=== PATIENT | female | born 1950 | race Caucasian/White ===

== ENCOUNTER 2018-01-10 15:45 | Emergency (ER) | payer MEDICARE ==
--- NOTE | 2018-01-10 16:20 | ERPHSYRPT ---
- History of Present Illness Time Seen by Provider: 01/10/18 16:15 Source: patient, family Exam Limitations: no limitations Patient Subjective Stated Complaint: pt sent from [facility] for swelling to left lower leg, started yesterday.no pain ,no injury. Triage Nursing Assessment: pt alert,sin w/d/p.resp easy, has fracture left humerus fx from a fall last week. left leg swollen, cool to touch with weak pedal pulse Physician History: The patient is a 67-year-old female with her complaining of a sudden onset of left lower leg swelling that began this morning. She denies shortness of breath. The leg is not tender nor is it red. She felt 2 weeks ago breaking the proximal left humerus. She has not been as active since the fracture of her humerus. Her states that he has been caring for her and she has not been very active at all. Her past medical history is significant for hypertension, scoliosis, and left humeral head fracture. Timing/Duration: today, gradual onset, worse Severity: moderate Modifying Factors: Improves With: nothing Associated Symptoms: denies symptoms, No nausea, No vomiting, No abdominal pain , No shortness of breath, No diaphoresis, No chest pain, No weakness Allergies/Adverse Reactions: carbamazepine [From Tegretol] Allergy (Verified 01/10/18 16:02) diazepam [From Valium] Allergy (Verified 01/10/18 16:02) hydrocodone Adverse Reaction (Verified 01/10/18 16:02) Home Medications: Amitriptyline HCl 200 mg PO QHS 06/16/15 [History] Losartan Potassium [Cozaar] 50 mg PO DAILY 06/16/15 [History] Cholecalciferol (Vitamin D3) [Vitamin D3] 1,000 unit PO DAILY 01/26/17 [History] Hx Tetanus, Diphtheria Vaccination/Date Given: Yes Hx Influenza Vaccination/Date Given: No Hx Pneumococcal Vaccination/Date Given: No Immunizations Up to Date: Yes - Review of Systems Constitutional: No Fever, No Chills Eyes: No Symptoms Ears, Nose, & Throat: No Symptoms Respiratory: No Cough, No Dyspnea Cardiac: Edema (left leg), No Chest Pain, No Syncope Abdominal/Gastrointestinal: No Abdominal Pain, No Nausea, No Vomiting, No Diarrhea Genitourinary Symptoms: No Dysuria Musculoskeletal: No Back Pain, No Neck Pain Skin: No Rash Neurological: No Dizziness, No Focal Weakness, No Sensory Changes Psychological: No Symptoms Endocrine: No Symptoms Hematologic/Lymphatic: No Symptoms Immunological/Allergic: No Symptoms All Other Systems: Reviewed and Negative - Past Medical History Pertinent Past Medical History: Yes Neurological History: No Pertinent History ENT History: No Pertinent History Cardiac History: Hypertension Respiratory History: No Pertinent History Endocrine Medical History: No Pertinent History Musculoskeletal History: Osteoarthritis, Osteoporosis GI Medical History: No Pertinent History History: No Pertinent History Psycho-Social History: No Pertinent History Female Reproductive Disorders: No Pertinent History Other Medical History: fx left arm - Past Surgical History Past Surgical History: Yes Neuro Surgical History: No Pertinent History Cardiac: No Pertinent History Respiratory: No Pertinent History Gastrointestinal: No Pertinent History Genitourinary: No Pertinent History Musculoskeletal: No Pertinent History Female Surgical History: Section, Hysterectomy Other Surgical History: Jaw surgery - Social History Smoking Status: Former smoker Exposure to second hand smoke: No Drug Use: none Patient Lives Alone: No - Female History Hx Last Menstrual Period: post - Nursing Vital Signs Nursing Vital Signs: Initial Vital Signs Temperature 97.2 F 01/10/18 16:05 Pulse Rate 120 H 01/10/18 16:05 Respiratory Rate 16 01/10/18 16:05 Blood Pressure 104/65 01/10/18 16:05 O2 Sat by Pulse Oximetry 98 01/10/18 16:05 - Physical Exam General Appearance: no apparent distress, alert Eye Exam: PERRL/EOMI, eyes nml inspection Ears, Nose, Throat Exam: normal ENT inspection, TMs normal, pharynx normal, moist mucous membranes Neck Exam: normal inspection, non-tender, supple, full range of motion Respiratory Exam: normal breath sounds, lungs clear, No respiratory distress Cardiovascular Exam: regular rate/rhythm, normal heart sounds, normal peripheral pulses Gastrointestinal/Abdomen Exam: soft, normal bowel sounds, No tenderness, No mass Pelvic Exam: not done Rectal Exam: not done Back Exam: normal inspection, normal range of motion, No CVA tenderness, No vertebral tenderness Extremity Exam: swelling (left calf is significantly larger than right. right calf measures 14 in and left 15.25 in.) Neurologic Exam: alert, oriented x 3, cooperative, normal mood/affect, nml cerebellar function, nml station & gait, sensation nml, No motor deficits Skin Exam: normal color, warm, dry, No rash Lymphatic Exam: No adenopathy SpO2 Interpretation: normal SpO2: 98 Oxygen Delivery: Room Air - Radiology Exams Chest X-ray Interpretation: Reviewed by me, Teleradiologist Report (per Dr French), Other (bibasilar etelectasis, tiny left effusion) - Radiology Ultrasound Exam Left Venous Lower Extremity Ultrasound: tele radiology report (per U/S tech ), Other (DVT in comomon femoral vein from iliac to foot.) Ordered Tests: Active Orders 24 hr Category Date Time Status Clinical Informatics Spec STAT Care 01/10/18 16:15 Active EKG-ER Only STAT Care 01/10/18 16:15 Active IV Insertion STAT Care 01/10/18 16:15 Active CHEST 1 VIEW (PORTABLE) Stat Exams 01/10/18 16:22 Completed VENOUS UNILAT/LIMITED EXTREMIT [US] Stat Exams 01/10/18 17:05 Taken CBC W DIFF Stat Lab 01/10/18 16:45 Completed CMP Stat Lab 01/10/18 16:45 Completed D-DIMER QUANTITATION Stat Lab 01/10/18 16:15 Ordered Lactic Acid Stat Lab 01/10/18 16:38 Completed Manual Differential NC Stat Lab 01/10/18 16:45 Completed NT PRO BNP Stat Lab 01/10/18 16:45 Completed TROPONIN Q3H Lab 01/10/18 16:45 Completed TROPONIN Q3H Lab 01/10/18 19:15 Ordered TROPONIN Q3H Lab 01/10/18 22:15 Ordered TROPONIN Q3H Lab 01/11/18 01:15 Ordered TROPONIN Q3H Lab 01/11/18 04:15 Ordered Lab/Rad Data: Laboratory Result Diagrams 01/10/18 16:45 01/10/18 16:45 Laboratory Results 01/10/18 01/10/18 01/10/18 Range/Units 16:45 16:45 16:45 WBC 10.9 H (4.0-10.5) K/mm3 RBC 4.05 L (4.1-5.4) M/mm3 Hgb 13.1 (12.0-16.0) gm/dl Hct 39.2 (35-47) % MCV 96.8 (78-100) fl MCH 32.3 H (26-32) pg MCHC 33.4 (32-36) g/dl RDW 13.7 (11.5-14.0) % Plt Count 627 H (150-450) K/mm3 MPV 8.8 (6-9.5) fl Absolute Granulocytes 7.57 H (1.4-6.9) Sodium 136 L (137-145) mmol/L Potassium 4.0 (3.5-5.1) mmol/L Chloride 100 (98-107) mmol/L Carbon Dioxide 23 (22-30) mmol/L Anion Gap 17.6 H (5-15) MEQ/L BUN 43 H (7-17) mg/dL Creatinine 0.80 (0.52-1.04) mg/dL Estimated GFR > 60.0 ML/MIN Glucose 104 (74-106) mg/dL Lactic Acid (0.4-2.0) Calcium 9.6 (8.4-10.2) mg/dL Total Bilirubin 0.60 (0.2-1.3) mg/dL AST 41 H (14-36) U/L ALT 33 (0-35) U/L Alkaline Phosphatase 124 (38-126) U/L Troponin I < 0.012 (0.000-0.034) ng/mL NT-Pro-B Natriuret Pep 69.0 (0-900) pg/mL Serum Total Protein 7.7 (6.3-8.2) g/dL Albumin 4.0 (3.5-5.0) g/dL 01/10/18 Range/Units 16:38 WBC (4.0-10.5) K/mm3 RBC (4.1-5.4) M/mm3 Hgb (12.0-16.0) gm/dl Hct (35-47) % MCV (78-100) fl MCH (26-32) pg MCHC (32-36) g/dl RDW (11.5-14.0) % Plt Count (150-450) K/mm3 MPV (6-9.5) fl Absolute Granulocytes (1.4-6.9) Sodium (137-145) mmol/L Potassium (3.5-5.1) mmol/L Chloride (98-107) mmol/L Carbon Dioxide (22-30) mmol/L Anion Gap (5-15) MEQ/L BUN (7-17) mg/dL Creatinine (0.52-1.04) mg/dL Estimated GFR ML/MIN Glucose (74-106) mg/dL Lactic Acid 1.5 (0.4-2.0) Calcium (8.4-10.2) mg/dL Total Bilirubin (0.2-1.3) mg/dL AST (14-36) U/L ALT (0-35) U/L Alkaline Phosphatase (38-126) U/L Troponin I (0.000-0.034) ng/mL NT-Pro-B Natriuret Pep (0-900) pg/mL Serum Total Protein (6.3-8.2) g/dL Albumin (3.5-5.0) g/dL - Progress Progress: unchanged Discussed with : Edgar Counseled pt/family regarding: lab results, diagnosis, need for follow-up, rad results - Departure Time of Disposition: 17:34 Departure Disposition: Home Clinical Impression: DVT (deep venous thrombosis) Condition: Stable Critical Care Time: No Referrals: YOUSUF ZHANG MD [Primary Care Provider] - Additional Instructions: You have a DVT in your left leg that is in your common femoral vein. You were given Eliquis 10 mg orally in the ER. Take Eliquis 10 mg twice a day. Follow- up with Dr. Zhang later this week. If you become short of breath or your condition changes significantly, please return immediately to the ER. Prescriptions: Apixaban [Eliquis] 10 mg PO BID #14 tablet
--- NOTE | 2018-01-10 16:45 | XRAY ---
Indication: Edema. Known left humeral fracture. Comparison: None Portable chest underinflated with bibasilar atelectasis, tiny left effusion, and right apical calcified granuloma. Remaining lungs clear. Heart is not enlarged. Bony thorax demonstrates mild osteopenia, mild degenerative changes, levoscoliosis, and mildly displaced/comminuted left humeral neck fracture. Impression: 1. Underinflated chest with bibasilar atelectasis and tiny left effusion. 2. Left humeral neck fracture.
[2018-01-10 16:50] LABS: Granulocyte Absolute (ANC) 7.57 (1.4-6.9); Hematocrit 39.2 % (35-47); Hemoglobin 13.1 gm/dl (12.0-16.0); Mean Cell Volume 96.8 fl (78-100); Mean Corpuscular Hemoglobin 32.3 pg (26-32); Mean Corpuscular Hgb Concent. 33.4 g/dl (32-36); Mean Platelet Volume 8.8 fl (6-9.5); Platelet Count 627 K/mm3 (150-450); Red Blood Count 4.05 M/mm3 (4.1-5.4); Red Cell Distribution Width 13.7 % (11.5-14.0); White Blood Count 10.9 K/mm3 (4.0-10.5)
[2018-01-10 17:18] LABS: ALKALINE PHOSPHATASE 124 U/L (38-126); ANION GAP 17.6 MEQ/L (5-15); BLOOD UREA NITROGEN 43 mg/dL (7-17); CHLORIDE 100 mmol/L (98-107); Calcium 9.6 mg/dL (8.4-10.2); Carbon Dioxide 23 mmol/L (22-30); Glucose 104 mg/dL (74-106); SGOT/AST 41 U/L (14-36); SGPT/ALT 33 U/L (0-35); SODIUM 136 mmol/L (137-145); Total Protein 7.7 g/dL (6.3-8.2)
[2018-01-10] MEDS ORDERED: ELIQUIS 2.5 MG TABLET ONE (17:37)
[2018-01-10 17:49] LABS: BAND 1 % (0.0-2.0); Eosinophil 4 % (0.00-3.0); Lymphocytes 19 % (24-44); Monocyte 7 % (0.0-12.0); Neutrophils 69 % (36.0-66.0); Total Cells Counted 100
[2018-01-10 17:50] LABS: ANISOCYTOSIS 1+; Platelet Estimate INCREASED (NORMAL)
[2018-01-10 18:23] VITALS: BP 120/78; PULSE 70; O2SAT 99
--- NOTE | 2018-01-10 18:26 | XRAY ---
Indication: Left leg swelling. 2-dimensional sonogram and color Doppler imaging of the major venous vessels of the left leg was performed. Comparison: None There is occluding thrombus in the common femoral, superficial femoral, and deep femoral veins. No thrombus in the popliteal vein but appears not compressible. No thrombus in the mid to distal posterior tibial and greater saphenous veins with normal compressibility. Impression: Left leg occlusive DVT as detailed. Comment: Preliminary report was given.
[2018-01-11] MEDS ORDERED: ELIQUIS 2.5 MG TABLET PO SCH (10:00)
== END 2018-01-10 18:23 | disposition home or self-care (01) ==
LOC: ED 15:45
DX: I82.412 Acute embolism and thrombosis of left femoral vein (principal); I10 Essential (primary) hypertension; Z79.899 Other long term (current) drug therapy
CPT/HCPCS: 36000; 36415; 71045; 80053; 83605; 83880; 84484; 85025; 93005; 93041; 93971; 99284; A9270-GY

== ENCOUNTER 2018-01-21 15:33 | Emergency (ER) | payer MEDICARE ==
--- NOTE | 2018-01-21 15:46 | ERPHSYRPT ---
- History of Present Illness Time Seen by Provider: 01/21/18 15:40 Source: patient Exam Limitations: no limitations Patient Subjective Stated Complaint: pt here for swelling to left leg, worse today, has large dvt in left leg Triage Nursing Assessment: pt arrived per [facility], resp easy, skin w/d/p. swelling to lower left leg, has strong ppp Physician History: pt here for swelling to left leg, worse today, has large dvt in left leg Patient is already on xarelto Timing/Duration: today Severity: mild Associated Symptoms: denies symptoms Allergies/Adverse Reactions: carbamazepine [From Tegretol] Allergy (Verified 01/21/18 15:39) diazepam [From Valium] Allergy (Verified 01/21/18 15:39) hydrocodone Adverse Reaction (Verified 01/21/18 15:39) Home Medications: Amitriptyline HCl 200 mg PO QHS 06/16/15 [History] Losartan Potassium [Cozaar] 50 mg PO DAILY 06/16/15 [History] Cholecalciferol (Vitamin D3) [Vitamin D3] 1,000 unit PO DAILY 01/26/17 [History] Hx Tetanus, Diphtheria Vaccination/Date Given: Yes Hx Influenza Vaccination/Date Given: No Hx Pneumococcal Vaccination/Date Given: No Immunizations Up to Date: Yes - Review of Systems Constitutional: No Symptoms Eyes: No Symptoms Ears, Nose, & Throat: No Symptoms Respiratory: No Symptoms Cardiac: No Symptoms Abdominal/Gastrointestinal: No Symptoms Musculoskeletal: No Symptoms, Other (leg swelling) Neurological: No Symptoms - Past Medical History Pertinent Past Medical History: Yes Neurological History: No Pertinent History ENT History: No Pertinent History Cardiac History: Hypertension Respiratory History: No Pertinent History Endocrine Medical History: No Pertinent History Musculoskeletal History: Osteoarthritis, Osteoporosis GI Medical History: No Pertinent History History: No Pertinent History Psycho-Social History: No Pertinent History Female Reproductive Disorders: No Pertinent History Other Medical History: fx left arm, dvt left leg 2017 - Past Surgical History Past Surgical History: Yes Neuro Surgical History: No Pertinent History Cardiac: No Pertinent History Respiratory: No Pertinent History Gastrointestinal: No Pertinent History Genitourinary: No Pertinent History Musculoskeletal: No Pertinent History Female Surgical History: Section, Hysterectomy Other Surgical History: Jaw surgery - Social History Smoking Status: Former smoker Exposure to second hand smoke: No Drug Use: none Patient Lives Alone: No - Female History Hx Last Menstrual Period: post Hx Now: No - Nursing Vital Signs Nursing Vital Signs: Initial Vital Signs Temperature 98.0 F 01/21/18 15:34 Pulse Rate 124 H 01/21/18 15:34 Respiratory Rate 18 01/21/18 15:34 Blood Pressure 117/88 01/21/18 15:34 O2 Sat by Pulse Oximetry 96 01/21/18 15:34 Pain Scale Pain Intensity 0 - Physical Exam General Appearance: no apparent distress Eye Exam: PERRL/EOMI Ears, Nose, Throat Exam: normal ENT inspection Neck Exam: normal inspection Respiratory Exam: normal breath sounds Cardiovascular Exam: regular rate/rhythm Gastrointestinal/Abdomen Exam: soft Extremity Exam: cheri's sign (negative) SpO2: 96 Oxygen Delivery: Room Air - Course Nursing assessment & vital signs reviewed: Yes - Progress Progress: improved Counseled pt/family regarding: diagnosis, need for follow-up - Departure Time of Disposition: 15:44 Departure Disposition: Home Clinical Impression: DVT (deep venous thrombosis) Qualifiers: DVT location: lower extremity Affected thrombotic vein of extremity: popliteal Chronicity: chronic Laterality: left Qualified Code(s): I82.532 - Chronic embolism and thrombosis of left popliteal vein Condition: Stable Critical Care Time: No Referrals: YOUSUF ZHANG MD [Primary Care Provider] - Additional Instructions: You should stay on, your medication Xarelto as prescribed. Followup with your primary care physician in next one to 2 days.
[2018-01-21 16:02] VITALS: BP 98/53; PULSE 78; O2SAT 98
== END 2018-01-21 16:03 | disposition home or self-care (01) ==
LOC: ED 15:33
DX: I82.532 Chronic embolism and thrombosis of left popliteal vein (principal); Z79.01 Long term (current) use of anticoagulants; Z79.899 Other long term (current) drug therapy
CPT/HCPCS: 99283

== ENCOUNTER 2018-05-09 05:57 | Day surgery (SDC) | payer MEDICARE ==
[2018-05-09] MEDS ORDERED: DIPRIVAN 200 MG/20 ML IV ONE (05:58)
[2018-05-09] MEDS ORDERED: Lactated Ringers 1,000 ML IV SCH (06:30)
--- NOTE | 2018-05-09 07:56 | OP ---
SURGERY DATE/TIME: 05/09/2018 0711 PREOPERATIVE DIAGNOSIS: Positive fecal occult blood testing. POSTOPERATIVE DIAGNOSIS: Sigmoid colon polyp x1. PROCEDURE: Colonoscopy. SURGEON: Mark Hernández M.D. ANESTHESIA: MAC by Fantasma Kirk CRNA. ESTIMATED BLOOD LOSS: Minimal. SPECIMENS: Hot forceps polypectomy from sigmoid colon polyp. DESCRIPTION OF PROCEDURE: After informed written consent was obtained, the patient was taken to the endoscopy suite. She underwent monitored anesthesia and digital rectal exam showed normal sphincter tone and no internal lesions. The scope was inserted into the rectum and sequentially the entire colonic mucosa was traversed. The level of cecum was reached and verified with direct visualization of ileocecal valve. Upon withdrawal careful mucosal inspection revealed no gross abnormalities. There was a small sessile polyp in the sigmoid colon which was removed in its entirety with hot forceps and sent for pathology testing. Prior to withdrawal retroflexion was performed and was within normal limits. The scope was removed and the patient was transferred to the recovery room in excellent condition. I have advised that she hold her Xarelto for three days and resume after that period. She will follow up in one week for pathology results.
[2018-05-09 08:09] VITALS: O2SAT 97
[2018-05-09 08:47] VITALS: BP 137/88; PULSE 98
[2018-05-09] MEDS ORDERED: Lactated Ringers 1,000 ML IV ONE (16:08)
== END 2018-05-09 09:03 | disposition home or self-care (01) ==
LOC: SDC 05:57
PROVIDERS: ATTEND Family Medicine
DX: D12.5 Benign neoplasm of sigmoid colon (principal); R19.5 Other fecal abnormalities; I10 Essential (primary) hypertension; Z79.01 Long term (current) use of anticoagulants
CPT/HCPCS: 88305; J2704

== ENCOUNTER 2019-04-17 15:15 | Day surgery (SDC) | payer MEDICARE ==
[2019-04-17] MEDS ORDERED: Xylocaine-Mpf 2% 5 Ml Vial IJ ONE (15:16)
[2019-04-17] MEDS ORDERED: Depo-Medrol 40 MG/ML IM ONE (15:16)
[2019-04-17] MEDS ORDERED: DIPRIVAN 200 MG/20 ML IV ONE (15:34)
[2019-04-17] MEDS ORDERED: Ketamine HCl 50 MG/ML ONE (15:34)
[2019-04-17] MEDS ORDERED: Lactated Ringers 1,000 ML IV ONE (15:58)
--- NOTE | 2019-04-17 17:03 | XRAY ---
Indication: Bilateral L3-S1 MBB. Intraoperative fluoroscopy was provided for 18 seconds. Single digital spot images submitted for interpretation demonstrates posterior needle tips projecting over the expected course of the left and right L3-S1 nerve roots. Correlate with intraoperative findings/report.
--- NOTE | 2019-04-17 17:08 | XRAY ---
18 seconds fluoroscopy time in surgery for bilateral L3-S1 MBB.
== END 2019-04-17 16:27 | disposition home or self-care (01) ==
LOC: SDC-PAIN 15:15
PROVIDERS: ATTEND Psychiatry & Neurology Pain Medicine
DX: M47.816 Spondylosis without myelopathy or radiculopathy, lumbar region (principal); I10 Essential (primary) hypertension; M79.7 Fibromyalgia; M81.0 Age-related osteoporosis without current pathological fracture; M41.9 Scoliosis, unspecified; F41.8 Other specified anxiety disorders; Z79.899 Other long term (current) drug therapy
CPT/HCPCS: 64493; 64494; 64495; 72020; 77002; J1030; J2704

== ENCOUNTER 2020-01-15 09:49 | Day surgery (SDC) | payer MEDICARE ==
[~2020-01-15 09:49] MED LIST: DIPRIVAN 200 MG/20 ML IV ONE; Ketamine HCl 50 MG/ML ONE
[2020-01-15] MEDS ORDERED: BUPIVACAINE 0.5% VIAL IJ ONE (09:50)
[2020-01-15] MEDS ORDERED: Depo-Medrol 40 MG/ML IM ONE (09:50)
--- NOTE | 2020-01-15 13:39 | XRAY ---
Indication: Bilateral L3-S1 MBB. Intraoperative fluoroscopy provided for 25 seconds. Single digital spot image submitted for interpretation demonstrates posterior needle tips projecting over the expected left and right L3-S1 nerve roots. Correlate with intraoperative findings/report.
--- NOTE | 2020-01-15 13:41 | XRAY ---
25 seconds fluoroscopy time in surgery for bilateral L3-S1 MBB.
[2020-01-15] MEDS ORDERED: Lactated Ringers 1,000 ML IV ONE (13:45)
== END 2020-01-15 12:51 | disposition home or self-care (01) ==
LOC: SDC-PAIN 09:49
PROVIDERS: ATTEND Psychiatry & Neurology Pain Medicine
DX: M17.0 Bilateral primary osteoarthritis of knee (principal); I10 Essential (primary) hypertension; M79.7 Fibromyalgia; G54.0 Brachial plexus disorders; Z79.899 Other long term (current) drug therapy; Z86.718 Personal history of other venous thrombosis and embolism
CPT/HCPCS: 72020; 77002; J1030; J2704

== ENCOUNTER 2020-07-15 08:30 | Day surgery (SDC) | payer MEDICARE ==
[2020-07-15] MEDS ORDERED: BUPIVACAINE 0.5% VIAL IJ ONE (08:31)
[2020-07-15] MEDS ORDERED: Depo-Medrol 40 MG/ML IM ONE (08:31)
[2020-07-15] MEDS ORDERED: Xylocaine 1% Vial 30 ML PF IJ ONE (08:31)
[2020-07-15] MEDS ORDERED: DIPRIVAN 200 MG/20 ML IV ONE (09:28)
[2020-07-15] MEDS ORDERED: Ketamine HCl 50 MG/ML ONE (09:28)
--- NOTE | 2020-07-15 10:58 | XRAY ---
Indication: Right L3-S1 RFA. Intraoperative fluoroscopy provided for 56 seconds. 3 digital spot images submitted for interpretation demonstrates posterior needle tips projecting over the expected right L3-S1 nerve roots. Correlate with intraoperative findings/report.
--- NOTE | 2020-07-15 11:36 | XRAY ---
56 seconds fluoroscopy time in surgery for right L3-S1 RFA.
[2020-07-15] MEDS ORDERED: Lactated Ringers 1,000 ML IV ONE ×2 (13:49)
== END 2020-07-15 10:11 | disposition home or self-care (01) ==
LOC: SDC-PAIN 08:30
PROVIDERS: ATTEND Psychiatry & Neurology Pain Medicine
DX: M47.816 Spondylosis without myelopathy or radiculopathy, lumbar region (principal); I10 Essential (primary) hypertension; M79.7 Fibromyalgia; Z79.899 Other long term (current) drug therapy
CPT/HCPCS: 64635; 64636; 72100; 77002; 99100; J1030; J2001; J2704

== ENCOUNTER 2020-08-12 12:49 | Day surgery (SDC) | payer MEDICARE ==
[2020-08-12] MEDS ORDERED: BUPIVACAINE 0.5% VIAL IJ ONE (12:50)
[2020-08-12] MEDS ORDERED: Xylocaine 1% Vial 30 ML PF IJ ONE (12:50)
[2020-08-12] MEDS ORDERED: Depo-Medrol 40 MG/ML IM ONE (12:50)
[2020-08-12] MEDS ORDERED: DIPRIVAN 200 MG/20 ML IV ONE (14:28)
[2020-08-12] MEDS ORDERED: Lactated Ringers 1,000 ML IV ONE (16:05)
--- NOTE | 2020-08-12 16:21 | XRAY ---
Indication: Left L3-S1 RFA. Intraoperative fluoroscopy provided for 46 seconds. 2 digital spot images submitted for interpretation demonstrates posterior needle tips projecting over the expected left L3-S1 nerve roots. Correlate with intraoperative findings/report.
--- NOTE | 2020-08-12 16:34 | XRAY ---
46 seconds fluoroscopy time in surgery for left L3-S1 RFA.
== END 2020-08-12 15:11 | disposition home or self-care (01) ==
LOC: SDC-PAIN 12:49
PROVIDERS: ATTEND Psychiatry & Neurology Pain Medicine
DX: M47.816 Spondylosis without myelopathy or radiculopathy, lumbar region (principal); I10 Essential (primary) hypertension; M79.7 Fibromyalgia; M81.0 Age-related osteoporosis without current pathological fracture; M41.9 Scoliosis, unspecified; M19.90 Unspecified osteoarthritis, unspecified site; Z79.899 Other long term (current) drug therapy
CPT/HCPCS: 72100; 77002; J1030; J2001; J2704

== ENCOUNTER 2020-11-01 23:26 | Observation (INO) | payer MEDICARE ==
[2020-11-01] MEDS ORDERED: BABY ASPIRIN 81 MG CHEW PO ONE (23:29)
[2020-11-01] MEDS ORDERED: MORPHINE SULFATE 2 MG INJ IV ONE (23:38)
[2020-11-01] MEDS ORDERED: Zofran 4 MG/2 ML VIAL IV ONE (23:38)
[2020-11-01] MEDS ORDERED: DUONEB 0.5-3 MG/3 ml Neb IH ONE ×2 (23:39→23:50)
--- NOTE | 2020-11-01 23:42 | ERPHSYRPT ---
- History of Present Illness Time Seen by Provider: 11/01/20 23:29 Historian: patient Exam Limitations: no limitations Physician History: 69 years old female with a history of hypertension presented in the ER with sudden onset shortness of breath almost 2 hours prior to arrival while she was resting and almost half an hour prior to arrival started to have substernal/ce ntral chest pain moderate intensity dull aching to sharp nonradiating without any significant aggravating or relieving factors. Denies any history of CAD in the past. No fever chills or cough reported. Timing/Duration: hour(s), constant, sudden, worse Activities at Onset: rest Quality: dullness Location: central Chest Pain Radiation: no radiation Severity of Pain-Max: moderate Severity of Pain-Current: moderate Modifying Factors: Improves With: nothing Associated Symptoms: palpitations, shortness of breath, No cough, No hurts to breathe, No chills, No rash, No dizziness, No back pain Prior Chest Pain/Cardiac Workup: no prior cardiac workup Nitro Today/Relief: no nitro taken today Aspirin Treatment Today: no aspirin today Allergies/Adverse Reactions: carbamazepine [From Tegretol] Allergy (Verified 11/01/20 23:27) diazepam [From Valium] Allergy (Verified 11/01/20 23:27) hydrocodone Adverse Reaction (Verified 11/01/20 23:27) Home Medications: Amitriptyline HCl 200 mg PO QHS 06/16/15 [History] Losartan Potassium [Cozaar] 50 mg PO DAILY 06/16/15 [History] Cholecalciferol (Vitamin D3) [Vitamin D3] 2,000 unit PO DAILY 01/26/17 [History] hydroCHLOROthiazide [Hydrochlorothiazide] 12.5 mg PO DAILY 11/01/20 [History] Hx Tetanus, Diphtheria Vaccination/Date Given: Yes Hx Influenza Vaccination/Date Given: No Hx Pneumococcal Vaccination/Date Given: No - Review of Systems Constitutional: No Symptoms Eyes: No Symptoms Ears, Nose, & Throat: No Symptoms Respiratory: Dyspnea Cardiac: Chest Pain, Palpitations Abdominal/Gastrointestinal: No Symptoms Genitourinary Symptoms: No Symptoms Musculoskeletal: No Symptoms Skin: No Symptoms Neurological: No Symptoms Psychological: Anxiety Endocrine: No Symptoms Hematologic/Lymphatic: No Symptoms Immunological/Allergic: No Symptoms - Past Medical History Pertinent Past Medical History: Yes Neurological History: No Pertinent History ENT History: No Pertinent History Cardiac History: Deep Vein Thrombosis, Hypertension Respiratory History: No Pertinent History Endocrine Medical History: No Pertinent History Musculoskeletal History: Degenerative Disk Disease, Other GI Medical History: No Pertinent History History: No Pertinent History Psycho-Social History: Depression Female Reproductive Disorders: No Pertinent History Other Medical History: Scoliosis. DVT LLE Jan 2018 after shoulder fx. - Past Surgical History Past Surgical History: Yes Neuro Surgical History: No Pertinent History Cardiac: No Pertinent History Respiratory: No Pertinent History Gastrointestinal: No Pertinent History Genitourinary: No Pertinent History Musculoskeletal: No Pertinent History, Orthopedic Surgery Female Surgical History: Section, Hysterectomy Other Surgical History: bilateral jaw reconstruction 1983, shoulder left fx Jan 2018 - Social History Smoking Status: Former smoker Exposure to second hand smoke: No Drug Use: none Patient Lives Alone: No - Nursing Vital Signs Nursing Vital Signs: Initial Vital Signs Temperature 97.3 F 11/01/20 23:29 Pulse Rate 118 H 11/01/20 23:29 Respiratory Rate 22 11/01/20 23:29 Blood Pressure 114/83 11/01/20 23:29 O2 Sat by Pulse Oximetry 97 11/01/20 23:29 Pain Scale Pain Intensity 4 - Physical Exam General Appearance: no apparent distress, alert, anxiety Eye Exam: PERRL/EOMI Ears, Nose, Throat Exam: normal ENT inspection, pharynx normal Neck Exam: normal inspection, supple, full range of motion Respiratory Exam: normal breath sounds, lungs clear Cardiovascular Exam: normal heart sounds, tachycardia Gastrointestinal/Abdomen Exam: soft, normal bowel sounds, No tenderness Back Exam: normal inspection Neurologic Exam: alert, oriented x 3, cooperative, 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 as tested Skin Exam: normal color SpO2 Interpretation: normal SpO2: 96 O2 Delivery: Room Air - Course EKG Interpreted by Me: RATE ([id number]), Sinus Tach, NORMAL AXIS, NORMAL INTERVALS, Non-specific ST Changes, Other (Nonspecific T wave changes) Ordered Tests: Active Orders 24 hr Category Date Time Status Agile Business Analyst STAT Care 11/01/20 23:30 Active EKG-ER Only STAT Care 11/01/20 23:29 Active IV Insertion STAT Care 11/01/20 23:29 Active CHEST 1 VIEW (PORTABLE) Stat Exams 11/02/20 00:15 Taken CBC W DIFF Stat Lab 11/01/20 23:57 Completed CMP Stat Lab 11/01/20 23:57 Completed D-DIMER QUANTITATIVE Stat Lab 11/02/20 00:00 Completed NT PRO BNP Stat Lab 11/01/20 23:57 Completed TROPONIN Q3H Lab 11/01/20 23:57 Completed TROPONIN Q3H Lab 11/02/20 02:30 Ordered TROPONIN Q3H Lab 11/02/20 05:30 Ordered TROPONIN Q3H Lab 11/02/20 08:30 Ordered TROPONIN Q3H Lab 11/02/20 11:30 Ordered Respiratory Therapy Assessment DAILY RT 11/01/20 23:55 Active Medication Summary Discontinued Medications Generic Name Dose Route Start Last Admin Trade Name Nelson PRN Reason Stop Dose Admin Albuterol/Ipratropium 3 ml 11/01/20 23:39 11/01/20 23:51 Duoneb 0.5-3 Mg/3 Ml Neb IH 11/01/20 23:40 3 ml STAT ONE Administration Albuterol/Ipratropium Confirm 11/01/20 23:50 Duoneb 0.5-3 Mg/3 Ml Neb Administered 11/01/20 23:51 Dose 3 ml IH .STK-MED ONE Aspirin 324 mg 11/01/20 23:29 11/01/20 23:48 Baby Aspirin 81 Mg Chew PO 11/01/20 23:30 324 mg STAT ONE Administration Aspirin Confirm 11/01/20 23:47 Baby Aspirin 81 Mg Chew Administered 11/01/20 23:48 Dose 324 mg .ROUTE .STK-MED ONE Morphine Sulfate 2 mg 11/01/20 23:38 11/01/20 23:50 Morphine Sulfate 2 Mg Inj IV 11/01/20 23:39 2 mg STAT ONE Administration Morphine Sulfate Confirm 11/01/20 23:47 Morphine Sulfate 2 Mg Inj Administered 11/01/20 23:48 Dose 2 mg .ROUTE .STK-MED ONE Ondansetron HCl 4 mg 11/01/20 23:38 11/01/20 23:51 Zofran 4 Mg/2 Ml Vial IV 11/01/20 23:39 4 mg STAT ONE Administration Ondansetron HCl Confirm 11/01/20 23:47 Zofran 4 Mg/2 Ml Vial Administered 11/01/20 23:48 Dose 4 mg .ROUTE .STK-MED ONE Lab/Rad Data: Laboratory Result Diagrams 11/01/20 23:57 11/01/20 23:57 Laboratory Results 11/02/20 11/01/20 11/01/20 Range/Units 00:00 23:57 23:57 WBC (4.0-10.5) K/mm3 RBC (4.1-5.4) M/mm3 Hgb (12.0-16.0) gm/dl Hct (35-47) % MCV (78-100) fl MCH (26-32) pg MCHC (32-36) g/dl RDW (11.5-14.0) % Plt Count (150-450) K/mm3 MPV (7.5-11.0) fl Gran % (36.0-66.0) % Eos # (Auto) (0-0.5) Absolute Lymphs (auto) (1.0-4.6) Absolute Monos (auto) (0.0-1.3) Lymphocytes % (24.0-44.0) % Monocytes % (0.0-12.0) % Eosinophils % (0.00-5.0) % Basophils % (0.0-0.4) % Absolute Granulocytes (1.4-6.9) Basophils # (0-0.4) D-Dimer 1121 H* (215-500) ng/mL Sodium 136 L (137-145) mmol/L Potassium 3.7 (3.5-5.1) mmol/L Chloride 101 (98-107) mmol/L Carbon Dioxide 20 L (22-30) mmol/L Anion Gap 18.4 H (5-15) MEQ/L BUN 23 H (7-17) mg/dL Creatinine 1.16 H (0.52-1.04) mg/dL Estimated GFR 49.1 ML/MIN Glucose 117 H (74-106) mg/dL Calcium 10.2 (8.4-10.2) mg/dL Total Bilirubin 0.40 (0.2-1.3) mg/dL AST 27 (14-36) U/L ALT 13 (0-35) U/L Alkaline Phosphatase 79 (38-126) U/L Troponin I < 0.012 (0.000-0.034) ng/mL NT-Pro-B Natriuret Pep 49.2 (0-900) pg/mL Serum Total Protein 7.5 (6.3-8.2) g/dL Albumin 4.5 (3.5-5.0) g/dL 11/01/20 Range/Units 23:57 WBC 8.6 (4.0-10.5) K/mm3 RBC 4.54 (4.1-5.4) M/mm3 Hgb 14.9 (12.0-16.0) gm/dl Hct 45.1 (35-47) % MCV 99.3 (78-100) fl MCH 32.8 H (26-32) pg MCHC 33.0 (32-36) g/dl RDW 13.5 (11.5-14.0) % Plt Count 450 (150-450) K/mm3 MPV 9.4 (7.5-11.0) fl Gran % 42.4 (36.0-66.0) % Eos # (Auto) 0.27 (0-0.5) Absolute Lymphs (auto) 3.40 (1.0-4.6) Absolute Monos (auto) 1.25 (0.0-1.3) Lymphocytes % 39.6 (24.0-44.0) % Monocytes % 14.6 H (0.0-12.0) % Eosinophils % 3.1 (0.00-5.0) % Basophils % 0.3 (0.0-0.4) % Absolute Granulocytes 3.64 (1.4-6.9) Basophils # 0.03 (0-0.4) D-Dimer (215-500) ng/mL Sodium (137-145) mmol/L Potassium (3.5-5.1) mmol/L Chloride (98-107) mmol/L Carbon Dioxide (22-30) mmol/L Anion Gap (5-15) MEQ/L BUN (7-17) mg/dL Creatinine (0.52-1.04) mg/dL Estimated GFR ML/MIN Glucose (74-106) mg/dL Calcium (8.4-10.2) mg/dL Total Bilirubin (0.2-1.3) mg/dL AST (14-36) U/L ALT (0-35) U/L Alkaline Phosphatase (38-126) U/L Troponin I (0.000-0.034) ng/mL NT-Pro-B Natriuret Pep (0-900) pg/mL Serum Total Protein (6.3-8.2) g/dL Albumin (3.5-5.0) g/dL - Progress Progress: improved Air Movement: good Progress Note: 11/02/20 00:55 69 years old is evaluated for chest shortness of breath which started 2 hours ago and later chest pain almost half an hour prior to arrival. She is given aspirin and morphine for symptomatic relief, on reevaluation feeling better. EKG showed sinus tach with no acute ST elevation. Negative initial troponins. Chest x-ray no acute findings but old changes. Has elevated D-dimer, CTA is ordered currently pending. Patient has multiple risk factors for CAD, does not have any work-up done in the recent past. Discussed with Dr. Vines and patient is being admitted for rule out. Blood Culture(s) Obtained: No Antibiotics given: No Discussed with : Rosa Will see patient in: hospital (observation) Counseled pt/family regarding: lab results, diagnosis, rad results - Departure Departure Disposition: Observation Clinical Impression: Chest pain, rule out acute myocardial infarction Condition: Stable Critical Care Time: No Referrals: YOUSUF ZHANG MD [Primary Care Provider] -
[2020-11-01] MEDS ORDERED: BABY ASPIRIN 81 MG CHEW ONE (23:47)
[2020-11-01] MEDS ORDERED: Zofran 4 MG/2 ML VIAL ONE (23:47)
[2020-11-01] MEDS ORDERED: MORPHINE SULFATE 2 MG INJ ONE (23:47)
[2020-11-02 00:14] LABS: Absolute Neutrophil Ct (ANC) 3.64 (1.4-6.9); BASOPHIL % 0.3 % (0.0-0.4); Basophil (Absolute #) 0.03 (0-0.4); Eosinophil % 3.1 % (0.00-5.0); Eosinophil (Absolute #) 0.27 (0-0.5); Hematocrit 45.1 % (35-47); Hemoglobin 14.9 gm/dl (12.0-16.0); Lymphocytes % 39.6 % (24.0-44.0); Mean Cell Volume 99.3 fl (78-100); Mean Corpuscular Hemoglobin 32.8 pg (26-32); Mean Platelet Volume 9.4 fl (7.5-11.0); Monocyte (Absolute #) 1.25 (0.0-1.3); Monocytes % 14.6 % (0.0-12.0); Neutrophil % 42.4 % (36.0-66.0); Platelet Count 450 K/mm3 (150-450); Red Blood Count 4.54 M/mm3 (4.1-5.4); Red Cell Distribution Width 13.5 % (11.5-14.0); White Blood Count 8.6 K/mm3 (4.0-10.5)
[2020-11-02 00:23] LABS: ALBUMIN 4.5 g/dL (3.5-5.0); ANION GAP 18.4 MEQ/L (5-15); BILIRUBIN,TOTAL 0.4 mg/dL (0.2-1.3); Calcium 10.2 mg/dL (8.4-10.2); Creatinine 1 1.16 mg/dL (0.52-1.04); EST GLOMERULAR FILTRATION RATE 49.1 ML/MIN; NT PRO BNP 49.2 pg/mL (0-900); Potassium 3.7 mmol/L (3.5-5.1); Total Protein 7.5 g/dL (6.3-8.2)
[2020-11-02] MEDS ORDERED: GI COCKTAIL 45 ML (Maalox/Lidocaine) PO ONE (00:53)
[2020-11-02] MEDS ORDERED: Pepcid 20 MG VIAL IV ONE ×2 (00:53→01:15)
[2020-11-02] MEDS ORDERED: MAALOX ES 30 ML UNIT DOSE ONE (01:16)
[2020-11-02] MEDS ORDERED: XYLOCAINE HCl Viscous ONE ×2 (01:16→01:17)
[2020-11-02] MEDS ORDERED: Zofran 4 MG/2 ML VIAL IV PRN (03:29)
[2020-11-02] MEDS ORDERED: TYLENOL 325 MG PO PRN (03:29)
[2020-11-02] MEDS ORDERED: Sodium Chloride 0.9% 1000 ML 1,000 ML IV SCH (03:29)
[2020-11-02] MEDS ORDERED: DUONEB 0.5-3 MG/3 ml Neb IH PRN (03:29)
[2020-11-02] MEDS ORDERED: MORPHINE SULFATE 2 MG INJ IV PRN (03:29)
[2020-11-02 06:33] LABS: ALBUMIN 3.6 g/dL (3.5-5.0); ANION GAP 15.5 MEQ/L (5-15); BILIRUBIN,TOTAL 0.2 mg/dL (0.2-1.3); Calcium 8.6 mg/dL (8.4-10.2); EST GLOMERULAR FILTRATION RATE 58.3 ML/MIN; Potassium 3.5 mmol/L (3.5-5.1); Total Protein 6.3 g/dL (6.3-8.2)
[2020-11-02 08:27] VITALS: BP 109/65; PULSE 96; O2SAT 91
--- NOTE | 2020-11-02 08:51 | XRAY ---
Indication: Short of breath, tachycardia, diaphoresis. Elevated d-dimer. Multiple contiguous axial images obtained through the chest using 100 cc Isovue 370 contrast and PE protocol. Comparison: None There is good opacification of the pulmonary arteries limiting evaluation of the more distal lobar and segmental branches. No pulmonary embolus. Heart is not enlarged. Aorta is normal in course and caliber. Tiny mediastinal calcified nodes calcified nodes. No pathologic mediastinal/hilar lymphadenopathy. Lungs demonstrates scattered subsegmental atelectasis/scarring greatest in both lower lobes. Small posterior right upper lobe calcified granuloma. No suspicious pulmonary mass, infiltrate, or effusion. Bony thorax intact with osteopenia, mild/moderate degenerative changes throughout the spine, and significant dextrorotoscoliosis centered at thoracolumbar junction. Limited upper abdomen unremarkable. Impression: 1. Negative pulmonary embolus. No acute cardiopulmonary abnormalities. 2. Incidental chronic bony findings and old granulomatous disease. Comment: Preliminary interpretation made by [facility]. No critical discrepancy.
--- NOTE | 2020-11-02 08:53 | XRAY ---
Indication: Chest pain. Comparison: None Portable chest underinflated with bibasilar subsegmental atelectasis/scarring and small right apical calcified granuloma. No focal infiltrate, consolidation, or large effusion. Heart is not enlarged. Bony thorax intact with osteopenia, multilevel degenerative spondylosis, significant dextroscoliosis centered at thoracolumbar junction, and old left humeral neck fracture. Impression: Nonacute underinflated chest with chronic features.
--- NOTE | 2020-11-02 09:50 | SSS ---
DISCHARGE DIAGNOSIS: CHEST PAIN. HISTORY OF PRESENT ILLNESS: The patient is a 69 year-old white female who presented to the emergency room with acute onset of shortness of breath, substernal chest pain with moderate intensity, dull and aching, not radiating. The patient denies having any previous history of heart problems. She does not have a technical solutions director. She sees Dr. Hernández who is her primary care physician. PAST MEDICAL/SURGICAL HISTORY: Depression. Deep vein thrombosis in left lower extremity. Shoulder fracture. Deep vein thrombosis. Hypertension. She previously had a section and hysterectomy. Jaw reconstruction. Left shoulder fracture. HOME MEDICATIONS: Currently amitriptyline 200 mg at night, losartan 50 mg daily, vitamin D3 at 2,000 units daily, hydrochlorothiazide 12.5 mg daily. ALLERGIES: TEGRETOL. VALIUM. HYDROCODONE. PHYSICAL EXAMINATION: The patient's vital signs in the emergency room showed temperature 97.3F, pulse 118, respiratory rate 22, blood pressure 114/83. HEENT: Normocephalic, atraumatic. Pupils equal round reactive to light. Extraocular movements intact. Oropharynx is pink and moist. NECK: Supple without lymphadenopathy, thyromegaly or JVD. CHEST: Clear to auscultation. HEART: Regular rate and rhythm without murmurs, rubs or gallops. ABDOMEN: Soft. No palpable masses. EXTREMITIES: Without cyanosis, clubbing or edema. NEUROLOGIC: The patient is alert and oriented x3 with no focal deficits. LAB DATA AND TESTS: Laboratory studies revealed multiple troponins all less than 0.012. Her glucose 101, BUN 23, creatinine 1.0. Sodium slightly low at 133. The rest of electrolytes were normal as were the liver enzymes. The patient had negative COVID test. White blood cell count 8,600, hemoglobin 14.9, PLT count 450,000. D-dimer was somewhat elevated at 1,121. CT scan ruled out for pulmonary embolism but did show severe calcified coronary artery disease otherwise no other acute pathology is noted. The patient's 12 lead EKG revealed normal axis and sinus tachycardia with underlying baseline interference but no specific ST or T wave changes were noted on this EKG tracing. She has been in sinus rhythm since admission. HOSPITAL COURSE: The patient was placed on the medicine souza. She was monitored on telemetry and repeat serial troponins all were negative. The patient reports she has been pain free since admission. She is therefore felt to be ready for discharge home again. We sent in for her a prescription for sublingual nitroglycerin and described to her how to take the medication. She is instructed to check her vital signs and if the chest pain is not relieved with the nitroglycerin she is to return to the hospital. She patient reports she does take Excedrin for low back pain which has aspirin in it and otherwise she is asked to see her primary care physician in the next week or return to the hospital for chest pain not controlled with the nitroglycerin at which time they can discuss what technical solutions director they might like to see for her coronary artery disease.
[2020-11-02] MEDS ORDERED: Cozaar 50 MG PO SCH (10:00)
[2020-11-02] MEDS ORDERED: hydroDIURIL 25 MG PO SCH (10:00)
[2020-11-02] MEDS ORDERED: VITAMIN D PO SCH (10:00)
[2020-11-02] MEDS ORDERED: NON-FORMULARY ITEM (Hydrochlorothiazide [Hydrochlorothiazide] 12.5 MG) PO SCH (10:00)
[2020-11-02] MEDS ORDERED: NON-FORMULARY ITEM (Cholecalciferol (Vitamin D3) [Vitamin D3] 2,000 UNIT) PO SCH (10:00)
[2020-11-02] MEDS ORDERED: Pepcid 20 MG VIAL IV SCH (10:00)
[2020-11-02] MEDS ORDERED: AMITRIPTYLINE HCL 200 MG PO SCH (22:00)
== END 2020-11-02 10:03 | disposition home or self-care (01) ==
LOC: ED 23:26 → MED SURG 11-02 03:25
PROVIDERS: ADMIT Family Medicine; ATTEND Family Medicine
DX: R07.9 Chest pain, unspecified (principal); R06.02 Shortness of breath; I10 Essential (primary) hypertension; Z79.899 Other long term (current) drug therapy; Z20.828 Contact with and (suspected) exposure to other viral communicable diseases; Z86.718 Personal history of other venous thrombosis and embolism; I25.10 Atherosclerotic heart disease of native coronary artery without angina pectoris
CPT/HCPCS: 36000; 36415; 71045; 71260; 80053; 83880; 84484; 85025; 85379; 93005; 93041; 94640; 96374; 96375; 99285; U0003; 93268; J2270; J2405; A9270-GY; G0378

== ENCOUNTER 2021-01-20 11:58 | Day surgery (SDC) | payer MEDICARE ==
[2021-01-20] MEDS ORDERED: Depo-Medrol 40 MG/ML IM ONE (11:59)
[2021-01-20] MEDS ORDERED: BUPIVACAINE 0.5% VIAL IJ ONE (11:59)
[2021-01-20] MEDS ORDERED: DIPRIVAN 200 MG/20 ML IV ONE (14:06)
--- NOTE | 2021-01-20 15:15 | XRAY ---
Indication: Right SI joint injection. Intraoperative fluoroscopy provided for 10 seconds. 2 digital spot images submitted for interpretation demonstrates posterior needle tip projecting over the inferior right SI joint. Correlate with intraoperative findings/report.
--- NOTE | 2021-01-20 15:20 | XRAY ---
Indication: Right greater trochanter bursa injection. Intraoperative fluoroscopy provided for 11 seconds. Single digital spot image obtained from submitted for interpretation demonstrates needle tip just lateral to right greater trochanter. Small amount of contrast injected for needle tip placement. Correlate with intraoperative findings/report.
[2021-01-20] MEDS ORDERED: Lactated Ringers 1,000 ML IV ONE (15:28)
--- NOTE | 2021-01-20 17:03 | XRAY ---
11 seconds fluoroscopy time in surgery for injection of the greater trochanteric bursa of the right hip.
--- NOTE | 2021-01-20 17:12 | XRAY ---
10 seconds fluoroscopy time in surgery for injection of the right SI joint.
== END 2021-01-20 14:35 | disposition home or self-care (01) ==
LOC: SDC-PAIN 11:58
PROVIDERS: ATTEND Psychiatry & Neurology Pain Medicine
DX: M46.1 Sacroiliitis, not elsewhere classified (principal); M70.61 Trochanteric bursitis, right hip; Z79.899 Other long term (current) drug therapy
CPT/HCPCS: 27096; 72020; 73501; 77002; G0260; 99100; J1030; J2704; Q9966

== ENCOUNTER 2021-04-28 08:45 | Day surgery (SDC) | payer MEDICARE ==
[2021-04-28] MEDS ORDERED: BUPIVACAINE 0.5% VIAL IJ ONE (08:46)
[2021-04-28] MEDS ORDERED: Depo-Medrol 40 MG/ML IM ONE (08:46)
[2021-04-28] MEDS ORDERED: Lactated Ringers 1,000 ML IV ONE (10:12)
[2021-04-28] MEDS ORDERED: DIPRIVAN 200 MG/20 ML IV ONE (11:03)
--- NOTE | 2021-04-28 11:36 | XRAY ---
Indication: Right SI joint injection. Intraoperative fluoroscopy provided for 12 seconds. 2 digital spot image submitted for interpretation demonstrates posterior needle tip projecting over the inferior right SI joint. Correlate with intraoperative findings/report.
--- NOTE | 2021-04-28 11:38 | XRAY ---
Indication: Right greater trochanter bursa. Intraoperative fluoroscopy provided for 11 seconds. Single digital spot image obtained prone submitted for interpretation demonstrates needle tip projecting lateral to the right greater trochanter. Small amount of contrast injected for needle tip placement. Correlate with intraoperative findings/report.
--- NOTE | 2021-04-28 13:48 | XRAY ---
12 seconds of fluoroscopy was used in surgery for a right sacroiliac joint injection.
--- NOTE | 2021-04-28 13:48 | XRAY ---
11 seconds of fluoroscopy was used in surgery for a right greater trochanteric bursa injection.
== END 2021-04-28 11:30 | disposition home or self-care (01) ==
LOC: SDC-PAIN 08:45
PROVIDERS: ATTEND Psychiatry & Neurology Pain Medicine
DX: M46.1 Sacroiliitis, not elsewhere classified (principal); M70.61 Trochanteric bursitis, right hip; I10 Essential (primary) hypertension; Z79.899 Other long term (current) drug therapy
CPT/HCPCS: 20610; 27096; 72020; 73501; 77002; G0260; 99100; J1030; J2704; Q9966

== ENCOUNTER 2022-05-05 18:24 | Observation (INO) | payer MEDICARE ==
[2022-05-05] MEDS ORDERED: BABY ASPIRIN 81 MG CHEW PO ONE (18:30)
[2022-05-05] MEDS ORDERED: MORPHINE SULFATE 4 MG INJ IV ONE (18:30)
[2022-05-05] MEDS ORDERED: Zofran 4 MG/2 ML VIAL IV ONE (18:30)
[2022-05-05] MEDS ORDERED: NITRO-BID 2% UD PACKETS TOP ONE (18:30)
[2022-05-05] MEDS ORDERED: BABY ASPIRIN 81 MG CHEW ONE (18:42)
[2022-05-05] MEDS ORDERED: Zofran 4 MG/2 ML VIAL ONE (18:42)
[2022-05-05] MEDS ORDERED: NITRO-BID 2% UD PACKETS ONE (18:42)
[2022-05-05] MEDS ORDERED: MORPHINE SULFATE 4 MG INJ ONE (18:42)
--- NOTE | 2022-05-05 18:54 | ERPHSYRPT ---
- History of Present Illness Time Seen by Provider: 05/05/22 18:30 Historian: patient Exam Limitations: no limitations Patient Subjective Stated Complaint: pt c/o of chest pain and SOB off and on today Triage Nursing Assessment: Pt brought to the ER by her , hypertensive, rates pain as 7/10 in her chest, sunita lower leg edema, scoliosis, pulses normal, skin n/c/d, walked to the room and became very short of breath Physician History: 71 years old female with history of hypertension, hyperlipidemia presented in [facility] ER with chief complaint of substernal chest pain off and on since morning without any significant aggravating or relieving factors. Patient reports pain radiating to the back and the shoulder blade area with associated some shortness of breath which started almost 2 hours ago. No fever chills or cough reported. No history of CAD. Timing/Duration: today, intermittent, worse Quality: dullness Location: substernal Chest Pain Radiation: no radiation Severity of Pain-Max: moderate Severity of Pain-Current: moderate Modifying Factors: Improves With: nothing Associated Symptoms: shortness of breath Prior Chest Pain/Cardiac Workup: no prior chest pain, no prior cardiac workup Nitro Today/Relief: no nitro taken today Aspirin Treatment Today: no aspirin today Allergies/Adverse Reactions: carbamazepine [From Tegretol] Allergy (Verified 05/05/22 18:40) diazepam [From Valium] Allergy (Verified 05/05/22 18:40) hydrocodone Adverse Reaction (Verified 05/05/22 18:40) Home Medications: Amitriptyline HCl 200 mg PO QHS 06/16/15 [History] Cholecalciferol (Vitamin D3) [Vitamin D3] 2,000 unit PO DAILY 01/26/17 [History] hydroCHLOROthiazide [Hydrochlorothiazide] 12.5 mg PO DAILY 11/01/20 [History] Metoprolol Succinate 50 mg [Toprol Xl 50 MG] 50 mg BID 06/01/21 [History] Pravastatin Sodium 20 mg PO DAILY 05/05/22 [History] Hx Tetanus, Diphtheria Vaccination/Date Given: Yes Hx Influenza Vaccination/Date Given: No Hx Pneumococcal Vaccination/Date Given: No Travel Risk - International Travel Have you traveled outside of the country in past 3 weeks: No - Coronavirus Screening Are you exhibiting any of the following symptoms?: No Close contact with a COVID-19 positive Pt in past 14-21 Days: No - Vaccine Status Have you recieved a Covid-19 vaccination: Yes [employer]: Moderna - Vaccination Dates Date of 2cond Vaccination (if applicable): 05/31 - Review of Systems Constitutional: No Symptoms Eyes: No Symptoms Ears, Nose, & Throat: No Symptoms Respiratory: Dyspnea Cardiac: Chest Pain Abdominal/Gastrointestinal: No Symptoms Genitourinary Symptoms: No Symptoms Musculoskeletal: Arthralgias Skin: No Symptoms Neurological: No Symptoms Psychological: No Symptoms Endocrine: No Symptoms Hematologic/Lymphatic: No Symptoms Immunological/Allergic: No Symptoms - Past Medical History Pertinent Past Medical History: Yes Neurological History: Migraines ENT History: Cataracts Cardiac History: Angina, Hypertension Respiratory History: No Pertinent History Endocrine Medical History: No Pertinent History Musculoskeletal History: Osteoporosis GI Medical History: Irritable Bowel History: No Pertinent History Psycho-Social History: Depression Female Reproductive Disorders: Abnormal Uterine Bleeding Other Medical History: PT HAS BEEN TO FOR A CONSULTATION, NOT A CANDIDATE FOR SURGERY DUE TO OSTEOPOROSIS. NO COMPRESSION FRACTURES NOTED. PT SEES DR. PAYNE AND NOTES HER HEART IS FINE AT THIS TIME, SEES HIM EVERY 6 MONTHS. - Past Surgical History Past Surgical History: Yes Neuro Surgical History: No Pertinent History Cardiac: No Pertinent History Respiratory: No Pertinent History Gastrointestinal: No Pertinent History Genitourinary: No Pertinent History Musculoskeletal: No Pertinent History, Orthopedic Surgery Female Surgical History: Section, Hysterectomy Other Surgical History: bilateral jaw reconstruction 1983, shoulder left fx Jan 2018,steriod inj in back - Social History Smoking Status: Former smoker Exposure to second hand smoke: No Drug Use: none Patient Lives Alone: No - Nursing Vital Signs Nursing Vital Signs: Initial Vital Signs Temperature 98.3 F 05/05/22 18:30 Pulse Rate 93 H 05/05/22 18:30 Respiratory Rate 17 05/05/22 18:30 Blood Pressure 168/106 05/05/22 18:30 O2 Sat by Pulse Oximetry 99 05/05/22 18:30 Pain Scale Pain Intensity 7 - Physical Exam General Appearance: no apparent distress, alert Eye Exam: PERRL/EOMI Ears, Nose, Throat Exam: normal ENT inspection Neck Exam: normal inspection, non-tender, supple, full range of motion Respiratory Exam: normal breath sounds, lungs clear Cardiovascular Exam: regular rate/rhythm, normal heart sounds Gastrointestinal/Abdomen Exam: soft, No tenderness Back Exam: normal inspection Extremity Exam: normal inspection, normal range of motion Neurologic Exam: alert, oriented x 3, cooperative Skin Exam: normal color SpO2 Interpretation: normal SpO2: 99 O2 Delivery: Room Air - Course EKG Interpreted by Me: RATE (100), Sinus Rhythm, NORMAL AXIS, prolonged QT inte rval, Non-specific ST Changes Ordered Tests: Active Orders 24 hr Category Date Time 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 Set 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 External STAT Care 05/05/22 18:30 Active EKG-ER Only STAT Care 05/05/22 18:30 Active IV Insertion STAT Care 05/05/22 18:30 Active Oxygen-ED Only Nasal Cannula 2 lpm Care 05/05/22 18:30 Active CHEST 1 VIEW (PORTABLE) Stat Exams 05/05/22 18:30 Taken CHEST WITH CONTRAST [CT] Stat Exams 05/05/22 20:46 Taken CBC W DIFF Stat Lab 05/05/22 18:45 Completed CK-Creatinine Phosphokinase Stat Lab 05/05/22 18:45 Completed CMP Stat Lab 05/05/22 18:45 Completed D-DIMER QUANTITATIVE Stat Lab 05/05/22 19:20 Completed NT PRO BNP Stat Lab 05/05/22 18:45 Completed TROPONIN Q4H Lab 05/05/22 18:45 Completed TROPONIN Q4H Lab 05/05/22 22:30 Ordered TROPONIN Q4H Lab 05/06/22 02:30 Ordered Transfer Order Routine Transfer 05/05/22 Ordered Medication Summary Discontinued Medications Generic Name Dose Route Start Last Admin Trade Name Freq PRN Reason Stop Dose Admin Aspirin 324 mg 05/05/22 18:30 05/05/22 18:45 Aspirin 81 Mg Tab.Chew PO 05/05/22 18:31 324 mg STAT ONE Administration Aspirin Confirm 05/05/22 18:42 Aspirin 81 Mg Tab.Chew Administered 05/05/22 18:43 Dose 324 mg .ROUTE .STK-MED ONE Morphine Sulfate 4 mg 05/05/22 18:30 05/05/22 18:46 Morphine Sulfate 4 Mg/Ml Injection IV 05/05/22 18:31 4 mg STAT ONE Administration Morphine Sulfate Confirm 05/05/22 18:42 Morphine Sulfate 4 Mg/Ml Injection Administered 05/05/22 18:43 Dose 4 mg .ROUTE .STK-MED ONE Nitroglycerin 1 gm 05/05/22 18:30 05/05/22 18:47 Nitroglycerin 1 Gm Packet TOP 05/05/22 18:31 1 gm STAT ONE Administration Nitroglycerin Confirm 05/05/22 18:42 Nitroglycerin 1 Gm Packet Administered 05/05/22 18:43 Dose 1 gm .ROUTE .STK-MED ONE Ondansetron HCl 4 mg 05/05/22 18:30 05/05/22 18:47 Ondansetron Hcl 4 Mg/2 Ml Vial IV 05/05/22 18:31 4 mg STAT ONE Administration Ondansetron HCl Confirm 05/05/22 18:42 Ondansetron Hcl 4 Mg/2 Ml Vial Administered 05/05/22 18:43 Dose 4 mg .ROUTE .STK-MED ONE Lab/Rad Data: Laboratory Result Diagrams 05/05/22 18:45 05/05/22 18:45 Laboratory Results 05/05/22 05/05/22 05/05/22 Range/Units 19:20 18:45 18:45 WBC 6.9 (4.0-10.5) x10^3/uL RBC 4.50 (4.1-5.4) x10^6/uL Hgb 14.6 (12.0-16.0) g/dL Hct 44.3 (35-47) % MCV 98.4 (78-100) fL MCH 32.4 H (26-32) pg MCHC 33.0 (32-36) g/dL RDW 12.6 (11.5-14.0) % Plt Count 398 (150-450) x10^3/uL MPV 9.3 (7.5-11.0) fL Gran % 50.2 (36.0-66.0) % Immature Gran % (Auto) 0.3 (0.00-0.4) % Nucleat RBC Rel Count 0.0 (0.00-0.1) % Eos # (Auto) 0.16 (0-0.5) x10^3/uL Immature Gran # (Auto) 0.02 (0.00-0.03) x10^3u/L Absolute Lymphs (auto) 2.39 (1.0-4.6) x10^3/uL Absolute Monos (auto) 0.79 (0.0-1.3) x10^3/uL Absolute Nucleated RBC 0.00 (0.00-0.01) x10^3u/L Lymphocytes % 34.8 (24.0-44.0) % Monocytes % 11.5 (0.0-12.0) % Eosinophils % 2.3 (0.00-5.0) % Basophils % 0.9 (0.0-0.4) % Absolute Granulocytes 3.44 (1.4-6.9) x10^3/uL Basophils # 0.06 (0-0.4) x10^3/uL D-Dimer 1.42 H* (0.0-0.50) mg/L Sodium 137 (137-145) mmol/L Potassium 4.9 (3.5-5.1) mmol/L Chloride 106 (98-107) mmol/L Carbon Dioxide 25 (22-30) mmol/L Anion Gap 11.5 (5-15) MEQ/L BUN 30 H (7-17) mg/dL Creatinine 0.88 (0.52-1.04) mg/dL Estimated GFR > 60.0 ML/MIN Glucose 110 H (74-106) mg/dL Calcium 9.3 (8.4-10.2) mg/dL Total Bilirubin 0.30 (0.2-1.3) mg/dL AST 26 (14-36) U/L ALT 16 (0-35) U/L Alkaline Phosphatase 77 (38-126) U/L Creatine Kinase 37 (30-135) U/L Troponin I < 0.012 (0.000-0.034) ng/mL NT-Pro-B Natriuret Pep 86.3 (0-900) pg/mL Serum Total Protein 7.1 (6.3-8.2) g/dL Albumin 4.0 (3.5-5.0) g/dL - Progress Progress: improved Air Movement: good Progress Note: 05/05/22 22:00 71 years old is evaluated for intermittent chest pain since morning. Earlier it was for only few minutes and now having chest pain for last couple of hours continuous with some shortness of breath. Patient reports radiation of chest pain to the back and no history of CAD, PE, aortic aneurysm. EKG showed sinus rhythm with no acute ST elevations. Negative initial troponin. Chest x-ray reviewed by me revealed chronic findings and no acute process, official report is pending. Has normal white count, fairly unremarkable chemistries and negative initial troponins. As elevated D-dimer and with history of shortness of breath and pain radiating to the back I have obtained CTA chest which is negative for PE or any other acute intra-abdominal pathology and no obvious dissection or aneurysm. Patient does not have any cardiac work-up done in the recent past. Pain is pretty typical of angina, discussed with Dr. Yan, reviewed history, work-up and patient is being admitted for observation for rule out ACS. Plan discussed with patient and family who understand and agree with it. 05/05/22 22:02 Blood Culture(s) Obtained: No Antibiotics given: No Discussed with Dr.: Janis Will see patient in: hospital (observation) Counseled pt/family regarding: lab results, diagnosis, rad results - Departure Departure Disposition: Observation Clinical Impression: Chest pain, rule out acute myocardial infarction Condition: Stable Critical Care Time: No Referrals: OYUSUF ZHANG MD [Primary Care Provider] - Follow up/PCP as directed
[2022-05-05 18:59] LABS: Absolute Neutrophil Ct (ANC) 3.44 x10^3/uL (1.4-6.9); BASOPHIL % 0.9 % (0.0-0.4); Basophil (Absolute #) 0.06 x10^3/uL (0-0.4); Eosinophil % 2.3 % (0.00-5.0); Eosinophil (Absolute #) 0.16 x10^3/uL (0-0.5); Hematocrit 44.3 % (35-47); Hemoglobin 14.6 g/dL (12.0-16.0); IMMATURE GRAN # 0.02 x10^3u/L (0.00-0.03); IMMATURE GRAN % 0.3 % (0.00-0.4); Lymphocyte (Absolute #) 2.39 x10^3/uL (1.0-4.6); Lymphocytes % 34.8 % (24.0-44.0); Mean Cell Volume 98.4 fL (78-100); Mean Corpuscular Hemoglobin 32.4 pg (26-32); Mean Platelet Volume 9.3 fL (7.5-11.0); Monocyte (Absolute #) 0.79 x10^3/uL (0.0-1.3); Monocytes % 11.5 % (0.0-12.0); Neutrophil % 50.2 % (36.0-66.0); Platelet Count 398 x10^3/uL (150-450); Red Cell Distribution Width 12.6 % (11.5-14.0); White Blood Count 6.9 x10^3/uL (4.0-10.5)
[2022-05-05 20:08] LABS: ALKALINE PHOSPHATASE 77 U/L (38-126); ANION GAP 11.5 MEQ/L (5-15); BLOOD UREA NITROGEN 30 mg/dL (7-17); CHLORIDE 106 mmol/L (98-107); CK-Creatinine Phosphokinase 37 U/L (30-135); Calcium 9.3 mg/dL (8.4-10.2); Carbon Dioxide 25 mmol/L (22-30); Creatinine 1 0.88 mg/dL (0.52-1.04); EST GLOMERULAR FILTRATION RATE > 60.0 ML/MIN; Glucose 110 mg/dL (74-106); NT PRO BNP 86.3 pg/mL (0-900); Potassium 4.9 mmol/L (3.5-5.1); SGOT/AST 26 U/L (14-36); SGPT/ALT 16 U/L (0-35); SODIUM 137 mmol/L (137-145); TROPONIN < 0.012 ng/mL (0.000-0.034); Total Protein 7.1 g/dL (6.3-8.2)
[2022-05-05 23:13] LABS: INFLUENZA A NEGATIVE (NEGATIVE); INFLUENZA B NEGATIVE (NEGATIVE); RESPIRATORY SYNCTIAL VIRUS NEGATIVE (Negative); SARS-CoV-2 Xpert Express NEGATIVE (NEGATIVE)
[2022-05-06] MEDS ORDERED: TYLENOL 325 MG PO PRN (00:19)
[2022-05-06] MEDS ORDERED: Zofran 4 MG/2 ML VIAL IV PRN (00:19)
[2022-05-06] MEDS ORDERED: MORPHINE SULFATE 2 MG INJ IV PRN (00:19)
[2022-05-06] MEDS ORDERED: DUONEB 0.5-3 MG/3 ml Neb IH PRN (00:19)
[2022-05-06 04:08] LABS: ALBUMIN 3.5 g/dL (3.5-5.0); ALKALINE PHOSPHATASE 70 U/L (38-126); ANION GAP 7.1 MEQ/L (5-15); BLOOD UREA NITROGEN 25 mg/dL (7-17); CHLORIDE 104 mmol/L (98-107); Calcium 8.6 mg/dL (8.4-10.2); Carbon Dioxide 28 mmol/L (22-30); Creatinine 1 0.92 mg/dL (0.52-1.04); EST GLOMERULAR FILTRATION RATE > 60.0 ML/MIN; Glucose 89 mg/dL (74-106); Potassium 4.5 mmol/L (3.5-5.1); SGOT/AST 22 U/L (14-36); SGPT/ALT 14 U/L (0-35); SODIUM 134 mmol/L (137-145); Total Protein 6.3 g/dL (6.3-8.2)
[2022-05-06 05:15] LABS: Absolute Neutrophil Ct (ANC) 2.88 x10^3/uL (1.4-6.9); BASOPHIL % 0.8 % (0.0-0.4); Basophil (Absolute #) 0.05 x10^3/uL (0-0.4); Eosinophil (Absolute #) 0.26 x10^3/uL (0-0.5); Hematocrit 38.2 % (35-47); Hemoglobin 12.5 g/dL (12.0-16.0); IMMATURE GRAN # 0.01 x10^3u/L (0.00-0.03); IMMATURE GRAN % 0.2 % (0.00-0.4); Lymphocyte (Absolute #) 2.62 x10^3/uL (1.0-4.6); Lymphocytes % 39.8 % (24.0-44.0); Mean Corpuscular Hemoglobin 32.4 pg (26-32); Mean Corpuscular Hgb Concent. 32.7 g/dL (32-36); Mean Platelet Volume 9.6 fL (7.5-11.0); Monocyte (Absolute #) 0.76 x10^3/uL (0.0-1.3); Monocytes % 11.6 % (0.0-12.0); Neutrophil % 43.6 % (36.0-66.0); Platelet Count 358 x10^3/uL (150-450); Red Blood Count 3.86 x10^6/uL (4.1-5.4); Red Cell Distribution Width 12.9 % (11.5-14.0); White Blood Count 6.6 x10^3/uL (4.0-10.5)
[2022-05-06 07:20] VITALS: BP 80/53; PULSE 85
--- NOTE | 2022-05-06 08:03 | PCM.SSS ---
History of Present Illness - Chief Complaint Chief Complaint: Chest Pain R/O MN History of Present Illness: is a 71 year old female with acute onset of chest pain yesterday, it began at rest and became increasingly more intense. she was short of breath, no diaphoresis or vomiting. has a cardiac history and is followed by Dr Payne. she feels much better today and denies any chest pain. states she had an echo with Dr Payne recently - Review of Systems Constitutional: No Fever, No Chills Respiratory: No Cough, No Short Of Breath Cardiac: Chest Pain, No Palpitations, No Syncope Abdominal/Gastrointestinal: No Abdominal Pain, No Nausea, No Vomiting, No Diarrhea Genitourinary Symptoms: No Dysuria Skin: No Rash All Other Systems: Reviewed and Negative Medications & Allergies Home Medications: Home Medication List Amitriptyline HCl 200 mg PO QHS 06/16/15 [History Confirmed 05/05/22] Cholecalciferol (Vitamin D3) [Vitamin D3] 2,000 unit PO DAILY 01/26/17 [History Confirmed 05/05/22] hydroCHLOROthiazide [Hydrochlorothiazide] 12.5 mg PO DAILY 11/01/20 [History Confirmed 05/05/22] Metoprolol Succinate 50 mg [Toprol Xl 50 MG] 50 mg BID 06/01/21 [History Confirmed 05/05/22] Pravastatin Sodium 20 mg PO HS 05/05/22 [History Confirmed 05/06/22] Aspirin [Aspirin EC] 81 mg PO DAILY #30 tablet 05/06/22 [Rx] Allergies/Adverse Reactions: Allergies Allergy/AdvReac Type Severity Reaction Status Date / Time carbamazepine [From Tegretol] Allergy Verified 05/06/22 01:23 diazepam [From Valium] AdvReac Verified 05/06/22 01:22 hydrocodone AdvReac Verified 05/06/22 01:23 - Past Medical History Past Medical History: Yes Neurological History: Migraines ENT History: Cataracts Cardiac History: Angina, Hypertension Respiratory History: No Pertinent History Endocrine Medical History: No Pertinent History Musculoskelatal History: Osteoporosis, Other GI Medical History: Irritable Bowel History: No Pertinent History Pyscho-Social History: Anxiety, Depression Reproductive Disorders: Abnormal Uterine Bleeding Comment: PT HAS BEEN TO FOR A CONSULTATION, NOT A CANDIDATE FOR SURGERY DUE TO OSTEOPOROSIS. NO COMPRESSION FRACTURES NOTED. PT SEES DR. PAYNE AND NOTES HER HEART IS FINE AT THIS TIME, SEES HIM EVERY 6 MONTHS. hx of scoliosis, Sees Dr Mason at our pain clinic - Female History Are you now?: No - Past Surgical History Past Surgical History: Yes Neuro Surgical History: No Pertinent History Cardiac History: No Pertinent History Respiratory Surgery: No Pertinent History GI Surgical History: No Pertinent History Genitourinary Surgical Hx: No Pertinent History Musculskeletal Surgical Hx: No Pertinent History, Orthopedic Surgery Female Surgical History: Section, Hysterectomy Other Surgical History: bilateral jaw reconstruction 1983, shoulder left fx Jan 2018,steriod inj in back - Social History Smoking Status: Former smoker Exposure to second hand smoke: No Alcohol: None Drug Use: none - Physical Exam Vital Signs: Vital Signs - 24 hr Temp Pulse Resp BP Pulse Ox 05/06/22 07:20 97.2 F 85 18 80/53 95 05/06/22 07:10 96 05/06/22 04:00 97.6 F 95 H 15 84/53 95 05/06/22 00:44 97.3 F 78 16 118/72 05/06/22 00:25 79 16 97 05/05/22 23:30 83 16 112/65 95 05/05/22 22:18 84 18 112/77 91 L 05/05/22 22:02 99 05/05/22 21:05 83 14 127/81 95 05/05/22 20:07 89 13 113/88 94 L 05/05/22 18:30 98.3 F 93 H 17 168/106 99 General Appearance: no apparent distress, alert Neurologic Exam: alert, oriented x 3 Respiratory Exam: normal breath sounds, lungs clear, No respiratory distress Cardiovascular Exam: regular rate/rhythm, normal heart sounds, normal peripheral pulses Gastrointestinal/Abdomen Exam: soft, normal bowel sounds, No tenderness, No mass Extremity Exam: normal inspection, normal range of motion, pelvis stable Skin Exam: normal color, warm, dry, No rash Results - Labs Lab/Micro Results: Lab Results-Last 24 Hours 05/05/22 05/05/22 05/05/22 Range/Units 18:45 18:45 19:20 WBC 6.9 (4.0-10.5) x10^3/uL RBC 4.50 (4.1-5.4) x10^6/uL Hgb 14.6 (12.0-16.0) g/dL Hct 44.3 (35-47) % MCV 98.4 (78-100) fL MCH 32.4 H (26-32) pg MCHC 33.0 (32-36) g/dL RDW 12.6 (11.5-14.0) % Plt Count 398 (150-450) x10^3/uL MPV 9.3 (7.5-11.0) fL Gran % 50.2 (36.0-66.0) % Immature Gran % (Auto) 0.3 (0.00-0.4) % Nucleat RBC Rel Count 0.0 (0.00-0.1) % Eos # (Auto) 0.16 (0-0.5) x10^3/uL Immature Gran # (Auto) 0.02 (0.00-0.03) x10^3u/L Absolute Lymphs (auto) 2.39 (1.0-4.6) x10^3/uL Absolute Monos (auto) 0.79 (0.0-1.3) x10^3/uL Absolute Nucleated RBC 0.00 (0.00-0.01) x10^3u/L Lymphocytes % 34.8 (24.0-44.0) % Monocytes % 11.5 (0.0-12.0) % Eosinophils % 2.3 (0.00-5.0) % Basophils % 0.9 (0.0-0.4) % Absolute Granulocytes 3.44 (1.4-6.9) x10^3/uL Basophils # 0.06 (0-0.4) x10^3/uL D-Dimer 1.42 H* (0.0-0.50) mg/L Sodium 137 (137-145) mmol/L Potassium 4.9 (3.5-5.1) mmol/L Chloride 106 (98-107) mmol/L Carbon Dioxide 25 (22-30) mmol/L Anion Gap 11.5 (5-15) MEQ/L BUN 30 H (7-17) mg/dL Creatinine 0.88 (0.52-1.04) mg/dL Estimated GFR > 60.0 ML/MIN Glucose 110 H (74-106) mg/dL Calcium 9.3 (8.4-10.2) mg/dL Total Bilirubin 0.30 (0.2-1.3) mg/dL AST 26 (14-36) U/L ALT 16 (0-35) U/L Alkaline Phosphatase 77 (38-126) U/L Creatine Kinase 37 (30-135) U/L Troponin I < 0.012 (0.000-0.034) ng/mL NT-Pro-B Natriuret Pep 86.3 (0-900) pg/mL Serum Total Protein 7.1 (6.3-8.2) g/dL Albumin 4.0 (3.5-5.0) g/dL Influenza Type A Ag (NEGATIVE) Influenza Type B Ag (NEGATIVE) RSV (PCR) (Negative) SARS-CoV-2 (PCR) (NEGATIVE) 05/05/22 05/05/22 05/06/22 Range/Units 22:00 22:00 03:48 WBC (4.0-10.5) x10^3/uL RBC (4.1-5.4) x10^6/uL Hgb (12.0-16.0) g/dL Hct (35-47) % MCV (78-100) fL MCH (26-32) pg MCHC (32-36) g/dL RDW (11.5-14.0) % Plt Count (150-450) x10^3/uL MPV (7.5-11.0) fL Gran % (36.0-66.0) % Immature Gran % (Auto) (0.00-0.4) % Nucleat RBC Rel Count (0.00-0.1) % Eos # (Auto) (0-0.5) x10^3/uL Immature Gran # (Auto) (0.00-0.03) x10^3u/L Absolute Lymphs (auto) (1.0-4.6) x10^3/uL Absolute Monos (auto) (0.0-1.3) x10^3/uL Absolute Nucleated RBC (0.00-0.01) x10^3u/L Lymphocytes % (24.0-44.0) % Monocytes % (0.0-12.0) % Eosinophils % (0.00-5.0) % Basophils % (0.0-0.4) % Absolute Granulocytes (1.4-6.9) x10^3/uL Basophils # (0-0.4) x10^3/uL D-Dimer (0.0-0.50) mg/L Sodium (137-145) mmol/L Potassium (3.5-5.1) mmol/L Chloride (98-107) mmol/L Carbon Dioxide (22-30) mmol/L Anion Gap (5-15) MEQ/L BUN (7-17) mg/dL Creatinine (0.52-1.04) mg/dL Estimated GFR ML/MIN Glucose (74-106) mg/dL Calcium (8.4-10.2) mg/dL Total Bilirubin (0.2-1.3) mg/dL AST (14-36) U/L ALT (0-35) U/L Alkaline Phosphatase (38-126) U/L Creatine Kinase (30-135) U/L Troponin I < 0.012 < 0.012 (0.000-0.034) ng/mL NT-Pro-B Natriuret Pep (0-900) pg/mL Serum Total Protein (6.3-8.2) g/dL Albumin (3.5-5.0) g/dL Influenza Type A Ag NEGATIVE (NEGATIVE) Influenza Type B Ag NEGATIVE (NEGATIVE) RSV (PCR) NEGATIVE (Negative) SARS-CoV-2 (PCR) NEGATIVE (NEGATIVE) 05/06/22 05/06/22 Range/Units 03:48 03:48 WBC 6.6 (4.0-10.5) x10^3/uL RBC 3.86 L (4.1-5.4) x10^6/uL Hgb 12.5 (12.0-16.0) g/dL Hct 38.2 (35-47) % MCV 99.0 (78-100) fL MCH 32.4 H (26-32) pg MCHC 32.7 (32-36) g/dL RDW 12.9 (11.5-14.0) % Plt Count 358 (150-450) x10^3/uL MPV 9.6 (7.5-11.0) fL Gran % 43.6 (36.0-66.0) % Immature Gran % (Auto) 0.2 (0.00-0.4) % Nucleat RBC Rel Count 0.0 (0.00-0.1) % Eos # (Auto) 0.26 (0-0.5) x10^3/uL Immature Gran # (Auto) 0.01 (0.00-0.03) x10^3u/L Absolute Lymphs (auto) 2.62 (1.0-4.6) x10^3/uL Absolute Monos (auto) 0.76 (0.0-1.3) x10^3/uL Absolute Nucleated RBC 0.00 (0.00-0.01) x10^3u/L Lymphocytes % 39.8 (24.0-44.0) % Monocytes % 11.6 (0.0-12.0) % Eosinophils % 4.0 (0.00-5.0) % Basophils % 0.8 (0.0-0.4) % Absolute Granulocytes 2.88 (1.4-6.9) x10^3/uL Basophils # 0.05 (0-0.4) x10^3/uL D-Dimer (0.0-0.50) mg/L Sodium 134 L (137-145) mmol/L Potassium 4.5 (3.5-5.1) mmol/L Chloride 104 (98-107) mmol/L Carbon Dioxide 28 (22-30) mmol/L Anion Gap 7.1 (5-15) MEQ/L BUN 25 H (7-17) mg/dL Creatinine 0.92 (0.52-1.04) mg/dL Estimated GFR > 60.0 ML/MIN Glucose 89 (74-106) mg/dL Calcium 8.6 (8.4-10.2) mg/dL Total Bilirubin 0.30 (0.2-1.3) mg/dL AST 22 (14-36) U/L ALT 14 (0-35) U/L Alkaline Phosphatase 70 (38-126) U/L Creatine Kinase (30-135) U/L Troponin I (0.000-0.034) ng/mL NT-Pro-B Natriuret Pep (0-900) pg/mL Serum Total Protein 6.3 (6.3-8.2) g/dL Albumin 3.5 (3.5-5.0) g/dL Influenza Type A Ag (NEGATIVE) Influenza Type B Ag (NEGATIVE) RSV (PCR) (Negative) SARS-CoV-2 (PCR) (NEGATIVE) - Radiology Impressions Radiology Exams & Impressions: Radiology Procedures Category Date Time Status CHEST 1 VIEW (PORTABLE) Stat Exams 05/05/22 18:30 Taken CHEST WITH CONTRAST [CT] Stat Exams 05/05/22 20:46 Taken - Other Procedures and Tests Respiratory Therapy 05/06/22 00:36 Oxygen Nasal Cannula 2 lpm Assessment/Plan (1) Chest pain, rule out acute myocardial infarction Current Visit: Yes Status: Acute Assessment & Plan: MN ruled out, start asa 81mg daily and see Dr Payne as an outpatient. continue statin and metoprolol Code(s): R07.9 - CHEST PAIN, UNSPECIFIED Hospital Summary - Vitals & Intake/Output Vital Signs: Vital Signs Temperature 97.2 F 05/06/22 07:20 Pulse Rate 85 05/06/22 07:20 Respiratory Rate 18 05/06/22 07:20 Blood Pressure 80/53 05/06/22 07:20 O2 Sat by Pulse Oximetry 95 05/06/22 07:20 Intake & Output: Intake & Output 05/03/22 05/04/22 05/05/22 05/06/22 11:59 11:59 11:59 11:59 Weight 59.7 kg - Lab Result Diagrams: 05/06/22 03:48 05/06/22 03:48 Lab Results-Last 24 Hrs: Lab Results-Last 24 Hours 05/05/22 05/05/22 05/05/22 Range/Units 18:45 18:45 19:20 WBC 6.9 (4.0-10.5) x10^3/uL RBC 4.50 (4.1-5.4) x10^6/uL Hgb 14.6 (12.0-16.0) g/dL Hct 44.3 (35-47) % MCV 98.4 (78-100) fL MCH 32.4 H (26-32) pg MCHC 33.0 (32-36) g/dL RDW 12.6 (11.5-14.0) % Plt Count 398 (150-450) x10^3/uL MPV 9.3 (7.5-11.0) fL Gran % 50.2 (36.0-66.0) % Immature Gran % (Auto) 0.3 (0.00-0.4) % Nucleat RBC Rel Count 0.0 (0.00-0.1) % Eos # (Auto) 0.16 (0-0.5) x10^3/uL Immature Gran # (Auto) 0.02 (0.00-0.03) x10^3u/L Absolute Lymphs (auto) 2.39 (1.0-4.6) x10^3/uL Absolute Monos (auto) 0.79 (0.0-1.3) x10^3/uL Absolute Nucleated RBC 0.00 (0.00-0.01) x10^3u/L Lymphocytes % 34.8 (24.0-44.0) % Monocytes % 11.5 (0.0-12.0) % Eosinophils % 2.3 (0.00-5.0) % Basophils % 0.9 (0.0-0.4) % Absolute Granulocytes 3.44 (1.4-6.9) x10^3/uL Basophils # 0.06 (0-0.4) x10^3/uL D-Dimer 1.42 H* (0.0-0.50) mg/L Sodium 137 (137-145) mmol/L Potassium 4.9 (3.5-5.1) mmol/L Chloride 106 (98-107) mmol/L Carbon Dioxide 25 (22-30) mmol/L Anion Gap 11.5 (5-15) MEQ/L BUN 30 H (7-17) mg/dL Creatinine 0.88 (0.52-1.04) mg/dL Estimated GFR > 60.0 ML/MIN Glucose 110 H (74-106) mg/dL Calcium 9.3 (8.4-10.2) mg/dL Total Bilirubin 0.30 (0.2-1.3) mg/dL AST 26 (14-36) U/L ALT 16 (0-35) U/L Alkaline Phosphatase 77 (38-126) U/L Creatine Kinase 37 (30-135) U/L Troponin I < 0.012 (0.000-0.034) ng/mL NT-Pro-B Natriuret Pep 86.3 (0-900) pg/mL Serum Total Protein 7.1 (6.3-8.2) g/dL Albumin 4.0 (3.5-5.0) g/dL Influenza Type A Ag (NEGATIVE) Influenza Type B Ag (NEGATIVE) RSV (PCR) (Negative) SARS-CoV-2 (PCR) (NEGATIVE) 05/05/22 05/05/22 05/06/22 Range/Units 22:00 22:00 03:48 WBC (4.0-10.5) x10^3/uL RBC (4.1-5.4) x10^6/uL Hgb (12.0-16.0) g/dL Hct (35-47) % MCV (78-100) fL MCH (26-32) pg MCHC (32-36) g/dL RDW (11.5-14.0) % Plt Count (150-450) x10^3/uL MPV (7.5-11.0) fL Gran % (36.0-66.0) % Immature Gran % (Auto) (0.00-0.4) % Nucleat RBC Rel Count (0.00-0.1) % Eos # (Auto) (0-0.5) x10^3/uL Immature Gran # (Auto) (0.00-0.03) x10^3u/L Absolute Lymphs (auto) (1.0-4.6) x10^3/uL Absolute Monos (auto) (0.0-1.3) x10^3/uL Absolute Nucleated RBC (0.00-0.01) x10^3u/L Lymphocytes % (24.0-44.0) % Monocytes % (0.0-12.0) % Eosinophils % (0.00-5.0) % Basophils % (0.0-0.4) % Absolute Granulocytes (1.4-6.9) x10^3/uL Basophils # (0-0.4) x10^3/uL D-Dimer (0.0-0.50) mg/L Sodium (137-145) mmol/L Potassium (3.5-5.1) mmol/L Chloride (98-107) mmol/L Carbon Dioxide (22-30) mmol/L Anion Gap (5-15) MEQ/L BUN (7-17) mg/dL Creatinine (0.52-1.04) mg/dL Estimated GFR ML/MIN Glucose (74-106) mg/dL Calcium (8.4-10.2) mg/dL Total Bilirubin (0.2-1.3) mg/dL AST (14-36) U/L ALT (0-35) U/L Alkaline Phosphatase (38-126) U/L Creatine Kinase (30-135) U/L Troponin I < 0.012 < 0.012 (0.000-0.034) ng/mL NT-Pro-B Natriuret Pep (0-900) pg/mL Serum Total Protein (6.3-8.2) g/dL Albumin (3.5-5.0) g/dL Influenza Type A Ag NEGATIVE (NEGATIVE) Influenza Type B Ag NEGATIVE (NEGATIVE) RSV (PCR) NEGATIVE (Negative) SARS-CoV-2 (PCR) NEGATIVE (NEGATIVE) 05/06/22 05/06/22 Range/Units 03:48 03:48 WBC 6.6 (4.0-10.5) x10^3/uL RBC 3.86 L (4.1-5.4) x10^6/uL Hgb 12.5 (12.0-16.0) g/dL Hct 38.2 (35-47) % MCV 99.0 (78-100) fL MCH 32.4 H (26-32) pg MCHC 32.7 (32-36) g/dL RDW 12.9 (11.5-14.0) % Plt Count 358 (150-450) x10^3/uL MPV 9.6 (7.5-11.0) fL Gran % 43.6 (36.0-66.0) % Immature Gran % (Auto) 0.2 (0.00-0.4) % Nucleat RBC Rel Count 0.0 (0.00-0.1) % Eos # (Auto) 0.26 (0-0.5) x10^3/uL Immature Gran # (Auto) 0.01 (0.00-0.03) x10^3u/L Absolute Lymphs (auto) 2.62 (1.0-4.6) x10^3/uL Absolute Monos (auto) 0.76 (0.0-1.3) x10^3/uL Absolute Nucleated RBC 0.00 (0.00-0.01) x10^3u/L Lymphocytes % 39.8 (24.0-44.0) % Monocytes % 11.6 (0.0-12.0) % Eosinophils % 4.0 (0.00-5.0) % Basophils % 0.8 (0.0-0.4) % Absolute Granulocytes 2.88 (1.4-6.9) x10^3/uL Basophils # 0.05 (0-0.4) x10^3/uL D-Dimer (0.0-0.50) mg/L Sodium 134 L (137-145) mmol/L Potassium 4.5 (3.5-5.1) mmol/L Chloride 104 (98-107) mmol/L Carbon Dioxide 28 (22-30) mmol/L Anion Gap 7.1 (5-15) MEQ/L BUN 25 H (7-17) mg/dL Creatinine 0.92 (0.52-1.04) mg/dL Estimated GFR > 60.0 ML/MIN Glucose 89 (74-106) mg/dL Calcium 8.6 (8.4-10.2) mg/dL Total Bilirubin 0.30 (0.2-1.3) mg/dL AST 22 (14-36) U/L ALT 14 (0-35) U/L Alkaline Phosphatase 70 (38-126) U/L Creatine Kinase (30-135) U/L Troponin I (0.000-0.034) ng/mL NT-Pro-B Natriuret Pep (0-900) pg/mL Serum Total Protein 6.3 (6.3-8.2) g/dL Albumin 3.5 (3.5-5.0) g/dL Influenza Type A Ag (NEGATIVE) Influenza Type B Ag (NEGATIVE) RSV (PCR) (Negative) SARS-CoV-2 (PCR) (NEGATIVE) - Radiology Exams Ordered Rad Exams-Entire Visit: Radiology Procedures Category Date Time Status CHEST 1 VIEW (PORTABLE) Stat Exams 05/05/22 18:30 Taken CHEST WITH CONTRAST [CT] Stat Exams 05/05/22 20:46 Taken - Procedures and Test Procedures and Tests throughout Hospitalization: Therapy Orders & Screens 05/06/22 00:33 Respiratory Therapy Assessment DAILY Comment: Diagnosis: Chest pain rule out acute MN 05/06/22 00:36 Oxygen Nasal Cannula 2 lpm Comment: Diagnosis: Chest pain rule out acute MN - Discharge Disposition: Home, Self-Care Condition: Stable Prescriptions: New Aspirin [Aspirin EC] 81 mg PO DAILY #30 tablet Continue Amitriptyline HCl 200 mg PO QHS Cholecalciferol (Vitamin D3) [Vitamin D3] 2,000 unit PO DAILY hydroCHLOROthiazide [Hydrochlorothiazide] 12.5 mg PO DAILY Metoprolol Succinate 50 mg [Toprol Xl 50 MG] 50 mg BID Pravastatin Sodium 20 mg PO HS Follow up with: YOUSUF ZHANG MD [Primary Care Provider] - LOBO PAYNE [CONSULTING PHYSICIAN] -
--- NOTE | 2022-05-06 08:37 | XRAY ---
Indication: Chest pain. Comparison: November 02, 2020 Portable chest slightly better inflated again with minimal bibasilar subsegmental atelectasis/scarring and evidence for old granulomatous disease. No focal infiltrate, consolidation, or large effusion. Heart not enlarged. Bony thorax intact again with osteopenia, degenerative changes, dextroscoliosis, and old left humeral neck fracture. Impression: Continued nonacute chest with chronic features.
--- NOTE | 2022-05-06 08:37 | XRAY ---
Indication: Chest pain and short of breath. Pulmonary embolus versus aneurysm. Multiple contiguous axial images obtained through the chest using 100 cc Isovue 370 contrast and PE protocol. Comparison: November 02, 2020 Good opacification of the pulmonary arteries to include the lobar and segmental branches. No pulmonary embolus. Heart not enlarged. Aorta minimally arteriosclerotic without aneurysm/dissection. Stable tiny mediastinal calcified nodes. No pathologic mediastinal/hilar lymphadenopathy. Lungs again demonstrates minimal bibasilar subsegmental atelectasis/scarring and posterior right upper lobe calcified granuloma. No new pulmonary mass/nodule, infiltrate, effusion, or pneumothorax. Bony thorax intact again with osteopenia, mild degenerative changes of the spine, and significant dextrorotoscoliosis centered at thoracolumbar junction. Limited upper abdomen again demonstrates tiny splenic calcified granulomas. Impression: 1. Continued negative pulmonary embolus/aneurysm. No new/acute cardiopulmonary abnormalities. 2. Again chronic findings including atelectasis/scarring, chronic bony findings, and old granulomatous disease.
[2022-05-06 08:43] VITALS: O2SAT 91
[2022-05-06] MEDS ORDERED: PROTONIX 40 MG IV IV SCH (10:00)
== END 2022-05-06 09:50 | disposition home or self-care (01) ==
LOC: ED 18:24 → MED SURG 05-06 00:10
PROVIDERS: ADMIT Family Medicine; ATTEND Family Medicine
DX: R07.9 Chest pain, unspecified (principal); R06.02 Shortness of breath; I10 Essential (primary) hypertension; Z20.828 Contact with and (suspected) exposure to other viral communicable diseases; Z79.899 Other long term (current) drug therapy
CPT/HCPCS: 0241U; 36000; 36415; 71045; 71260; 80053; 82550; 83880; 84484; 85025; 85379; 93005; 93041; 94762; 96374; 96375; 99285; 93268; J2270; J2405; A9270-GY; G0378

== ENCOUNTER 2024-04-20 09:49 | Observation (INO) | payer MEDICARE ==
--- NOTE | 2024-04-20 10:06 | ERPHSYRPT ---
- History of Present Illness Time Seen by Provider: 04/20/24 09:52 Source: EMS Exam Limitations: no limitations Physician History: 73yo f presents to ED via EMS for concerns of AMS. EMS reports that they were called to pt residence b/c family was concerned about change in mental status that reportedly started last night, which would be considered last known normal. EMS reports pt did not participate in conversation while in route to ED, was just laughing in the ambulance. Pt has no family at bedside. Chart review shows pt does not currently take blood thinners at this time. Pt speech is slurred on exam. EMS reports family stated pt had a couple of falls at home recently. Pt is AxO x 2 on exam, does endorse some right hip pain as well. Pt started slurring speech during exam, was taken directly for head CT. Timing/Duration: yesterday Severity: moderate Character of Deficits: impaired speech Deficits: unable to stand Current Cognition: alert but confused, alert/disoriented to time Baseline Gait: uses walker Associated Symptoms: confusion, slurred speech Allergies/Adverse Reactions: carbamazepine [From Tegretol] Allergy (Verified 04/20/24 09:55) pt can't remember what this med does to her, but also and adverse rx diazepam [From Valium] Adverse Reaction (Verified 04/20/24 09:55) severe confusion hydrocodone Adverse Reaction (Verified 04/20/24 09:55) severe confusion Home Medications: Amitriptyline HCl 200 mg PO QHS 06/16/15 [History] Cholecalciferol (Vitamin D3) [Vitamin D3] 2,000 unit PO DAILY 01/26/17 [History] hydroCHLOROthiazide [Hydrochlorothiazide] 12.5 mg PO DAILY 11/01/20 [History] Metoprolol Succinate 50 mg [Toprol Xl 50 MG] 50 mg BID 06/01/21 [History] Calcium Carbonate [Calcium] 500 mg PO DAILY 09/01/23 [History] Hx Tetanus, Diphtheria Vaccination/Date Given: Yes Hx Influenza Vaccination/Date Given: No Hx Pneumococcal Vaccination/Date Given: No - Review of Systems Constitutional: No Symptoms Respiratory: No Symptoms Cardiac: No Symptoms Abdominal/Gastrointestinal: No Symptoms Neurological: Speech Changes, Tremors, No Focal Weakness, No Sensory Changes - Past Medical History Pertinent Past Medical History: Yes Neurological History: Migraines ENT History: Cataracts Cardiac History: Angina, Hypertension Respiratory History: No Pertinent History Endocrine Medical History: No Pertinent History Musculoskeletal History: Osteoporosis, Other GI Medical History: Irritable Bowel History: No Pertinent History Psycho-Social History: Anxiety, Depression Female Reproductive Disorders: Abnormal Uterine Bleeding Other Medical History: PT HAS BEEN TO FOR A CONSULTATION, NOT A CANDIDATE FOR SURGERY DUE TO OSTEOPOROSIS. NO COMPRESSION FRACTURES NOTED. PT SEES DR. PAYNE AND NOTES HER HEART IS FINE AT THIS TIME, SEES HIM EVERY 6 MONTHS. hx of scoliosis, Sees Dr Mason at our pain clinic - Past Surgical History Past Surgical History: Yes Neuro Surgical History: No Pertinent History Cardiac: No Pertinent History Respiratory: No Pertinent History Gastrointestinal: No Pertinent History Genitourinary: No Pertinent History Musculoskeletal: No Pertinent History, Orthopedic Surgery Female Surgical History: Section, Hysterectomy Other Surgical History: bilateral jaw reconstruction 1983, shoulder left fx Jan 2018,steriod inj in back - Social History Smoking Status: Former smoker Exposure to second hand smoke: No Drug Use: none Patient Lives Alone: No - Nursing Vital Signs Nursing Vital Signs: Initial Vital Signs Temperature 103.3 F 04/20/24 10:13 Pulse Rate 132 H 04/20/24 10:13 Respiratory Rate 22 04/20/24 10:13 Blood Pressure 140/88 04/20/24 10:13 O2 Sat by Pulse Oximetry 96 04/20/24 10:13 Pain Scale Pain Intensity 0 - [place] Coma Scale Best Eye Response (Vianey): (4) open spontaneously Best Verbal Response (Vianey): (4) confused conversation Best Motor Response (Vianey): (6) obeys commands Vianey Total: 14 - Physical Exam General Appearance: no apparent distress, alert Eye Exam: bilateral eye: normal inspection, PERRL, EOMI Ears, Nose, Throat Exam: normal ENT inspection Neck Exam: normal inspection, non-tender, supple Respiratory: normal breath sounds, lungs clear, airway intact, No chest tenderness, No respiratory distress Cardiovascular: normal heart sounds, normal peripheral pulses, tachycardia, No edema, No pulse deficit Gastrointestinal: soft, normal bowel sounds, No tenderness, No distention Back Exam: normal inspection, No CVA tenderness, No vertebral tenderness Extremity Exam: other (right hip TTP over femoral head), No deformities, No para lysis Mental Status: cooperative, disoriented to person, disoriented to time, No unresponsive private duty nurse Exam: PERRL, abnormal speech, tongue midline, No facial asymmetry, No facial droop, No facial paresthesias, No facial weakness, No gaze palsy Coordination/Gait: negative Romberg's sign Motor/Sensory: no motor deficit, no sensory deficit, no pronator drift Skin Exam: normal color, dry, other (dry mucous membranes) SpO2 Interpretation: normal SpO2: 92 O2 Delivery: Room Air - Course EKG Interpreted by Me: Sinus Tach (123), Other (qtcb 485, not suggestive of acute ischemia) Ordered Tests: Active Orders 24 hr Category Date Time Status EKG-ER Only STAT Care 04/20/24 10:25 Active NPO (ED) STAT Care 04/20/24 10:25 Active CHEST 1 VIEW (PORTABLE) Stat Exams 04/20/24 11:[address] ANGIOGRAPHY NECK [CT] Stat Exams 04/20/24 10:31 Completed CTA HEAD W AND/OR WO CONTRAST [CT] Stat Exams 04/20/24 10:31 Completed HEAD WITHOUT CONTRAST [CT] Stat Exams 04/20/24 09:51 Completed HIP CONSTANZA (4V) INCL PELV IF DONE Stat Exams 04/20/24 09:57 Completed PELVIS WITHOUT CONTRAST [CT] Stat Exams 04/20/24 09:57 Completed BLOOD CULTURE Stat Lab 04/20/24 11:39 Received CBC W DIFF Stat Lab 04/20/24 11:08 Completed CMP Stat Lab 04/20/24 11:08 Completed CULTURE,URINE Stat Lab 04/20/24 10:50 Received ETHYL ALCOHOL Stat Lab 04/20/24 11:08 Completed Lactic Acid Stat Lab 04/20/24 11:10 Completed Lactic Acid Stat Lab 04/20/24 13:12 Completed MAGNESIUM Stat Lab 04/20/24 11:08 Completed PROTIME WITH INR Stat Lab 04/20/24 11:08 Completed PTT Stat Lab 04/20/24 11:08 Completed TROPONIN Q4H Lab 04/20/24 11:08 Completed TROPONIN Q4H Lab 04/20/24 14:30 Received TROPONIN Q4H Lab 04/20/24 18:30 Ordered TSH, 3RD Generation Stat Lab 04/20/24 11:08 Completed UA W/RFX UR CULTURE Stat Lab 04/20/24 10:50 Completed Urine Triage Profile Stat Lab 04/20/24 10:51 Completed VENOUS BLOOD GAS Stat Lab 04/20/24 11:20 Completed Medication Summary Generic Name Dose Route Start Last Admin Trade Name Nelson PRN Reason Stop Dose Admin Sodium Chloride 1,000 mls @ 100 mls/hr 04/20/24 13:45 04/20/24 13:43 Sodium Chloride 0.9% 1000 Ml IV 05/20/24 13:44 100 mls/hr .Q10H JADE Administration Discontinued Medications Generic Name Dose Route Start Last Admin Trade Name Nelson PRN Reason Stop Dose Admin Acetaminophen 650 mg 04/20/24 10:57 04/20/24 11:09 Acetaminophen 650 Mg Supp.Rect MA 04/20/24 10:58 650 mg STAT ONE Administration Acetaminophen Confirm 04/20/24 10:57 Acetaminophen 650 Mg Supp.Rect Administered 04/20/24 10:58 Dose 650 mg .ROUTE .STK-MED ONE Haloperidol Lactate 2 mg 04/20/24 10:57 04/20/24 11:09 Haloperidol Lactate 5 Mg/Ml Vial IM 04/20/24 10:58 2 mg STAT ONE Administration Haloperidol Lactate Confirm 04/20/24 11:03 Haloperidol Lactate 5 Mg/Ml Vial Administered 04/20/24 11:04 Dose 5 mg .ROUTE .STK-MED ONE Haloperidol Lactate 2 mg 04/20/24 11:14 04/20/24 11:18 Haloperidol Lactate 5 Mg/Ml Vial IV 04/20/24 11:15 2 mg STAT ONE Administration Sodium Chloride 1,000 mls @ 999 mls/hr 04/20/24 10:26 04/20/24 12:16 Sodium Chloride 0.9% 1000 Ml IV 04/20/24 11:26 Infused .Q1H1M STA Infusion Sodium Chloride Confirm 04/20/24 11:08 Sodium Chloride 0.9% 1000 Ml Administered 04/20/24 11:09 Dose 1,000 mls @ ud .ROUTE .STK-MED ONE Piperacillin Sod/Tazobactam 100 mls @ 200 mls/hr 04/20/24 11:10 04/20/24 11:31 Sod 3.375 gm/ Sodium Chloride IV 04/20/24 11:39 200 mls/hr STAT ONE Administration Sodium Chloride Confirm 04/20/24 11:27 Sodium Chloride 100ml Mini-Bag Plus Administered 04/20/24 11:28 Dose 100 mls @ ud IV .STK-MED ONE Sodium Chloride Confirm 04/20/24 12:17 Sodium Chloride 0.9% 1000 Ml Administered 04/20/24 12:18 Dose 1,000 mls @ ud .ROUTE .STK-MED ONE Sodium Chloride 1,000 mls @ 999 mls/hr 04/20/24 12:18 04/20/24 13:29 Sodium Chloride 0.9% 1000 Ml IV 04/20/24 13:18 Infused .Q1H1M STA Infusion Piperacillin Sod/Tazobactam Sod Confirm 04/20/24 11:27 Piperacillin/Tazobactam Sodium 3.375 Gm Vial Administered 04/20/24 11:28 Dose 3.375 gm IV .STK-MED ONE Lab/Rad Data: Laboratory Result Diagrams 04/20/24 11:08 04/20/24 11:08 Laboratory Results 04/20/24 04/20/24 04/20/24 Range/Units 13:12 11:46 11:20 WBC (3.98-10.04) x10^3/uL RBC (3.93-5.22) x10^6/uL Hgb (11.2-15.7) g/dL Hct (34.1-44.9) % MCV (79.4-94.8) fL MCH (25.6-32.2) pg MCHC (32.2-35.5) g/dL RDW (11.7-14.4) % Plt Count (182-369) x10^3/uL MPV (9.4-12.3) fL Gran % (34.0-71.1) % Immature Gran % (Auto) (0.001-0.429) % Nucleat RBC Rel Count (0.00-0.2) % Eos # (Auto) (0.04-0.36) x10^3/uL Immature Gran # (Auto) (0.001-0.031) x10^3u/L Absolute Lymphs (auto) (1.18-3.74) x10^3/uL Absolute Monos (auto) (0.24-0.86) x10^3/uL Absolute Nucleated RBC (0.00-0.012) x10^3u/L Lymphocytes % (19.3-51.7) % Monocytes % (4.7-12.5) % Eosinophils % (0.7-5.8) % Basophils % (0.1-1.2) % Absolute Granulocytes (1.56-6.13) x10^3/uL Basophils # (0.01-0.08) x10^3/uL PT (9.4-12.5) SECONDS INR (0.8-3.0) APTT (25.1-36.5) SECONDS pO2/FiO2 Ratio 21.0 % VBG pH 7.55 H* (7.32-7.42) VBG pCO2 at Pat Temp 25 L (42-55) mm/Hg VBG pO2 at Pat Temp 32 (25-40) mm/Hg VBG HCO3 21.9 L (22-28) meq/L VBG O2 Sat (Ken) 62.2 L (95-100) VBG Base Excess 1.0 (-2.0-2.0) VBG Hemoglobin 13.7 VBG Carboxyhemoglobin 3.4 (0.0-6.9) % T HGB POC Potassium 3.7 (3.5-5.1) Sodium (135-145) mmol/L Potassium (3.5-5.1) mmol/L Chloride (98-107) mmol/L Carbon Dioxide (22-30) mmol/L Anion Gap (5-15) MEQ/L BUN (7-17) mg/dL Creatinine (0.52-1.04) mg/dL Estimated GFR ML/MIN Glucose (74-106) mg/dL Lactic Acid 0.7 (0.4-2.0) Calcium (8.4-10.2) mg/dL Magnesium (1.6-2.3) mg/dL Total Bilirubin (0.2-1.3) mg/dL AST (14-36) U/L ALT (0-35) U/L Alkaline Phosphatase (38-126) U/L Troponin I (0.000-0.033) ng/mL Serum Total Protein (6.3-8.2) g/dL Albumin (3.5-5.0) g/dL TSH 3rd Generation (0.470-4.680) mIU/L Urine Color (Yellow) Urine Appearance (Clear) Urine pH (4.6-8.0) Ur Specific [place] (1.005-1.030) Urine Protein (Negative) Urine Glucose (UA) (Negative) mg/dL Urine Ketones (Negative) Urine Blood (Negative) Urine Nitrite (Negative) Urine Bilirubin (Negative) Urine Urobilinogen (0.2) mg/dL Ur Leukocyte Esterase (Negative) U Hyaline Cast (Auto) (0-2) /LPF Urine Microscopic RBC (0-5) /HPF Urine Microscopic WBC (0-5) /HPF Ur Epithelial Cells (None Seen) /HPF Urine Bacteria (None Seen) /HPF Urine Culture Reflexed (NO) Urine Opiates Level (NEGATIVE) Ur Methadone (NEGATIVE) Urine Barbiturates (NEGATIVE) Ur Phencyclidine (PCP) (NEGATIVE) Urine Amphetamine (NEGATIVE) U Benzodiazepine Level (NEGATIVE) Urine Cocaine (NEGATIVE) Urine Marijuana (THC) (NEGATIVE) Ethyl Alcohol (0-10) mg/dL Influenza Type A Ag NEGATIVE (NEGATIVE) Influenza Type B Ag NEGATIVE (NEGATIVE) RSV (PCR) NEGATIVE (NEGATIVE) SARS-CoV-2 (PCR) NEGATIVE (NEGATIVE) Slides for Path Review 04/20/24 04/20/24 04/20/24 Range/Units 11:10 11:08 11:08 WBC (3.98-10.04) x10^3/uL RBC (3.93-5.22) x10^6/uL Hgb (11.2-15.7) g/dL Hct (34.1-44.9) % MCV (79.4-94.8) fL MCH (25.6-32.2) pg MCHC (32.2-35.5) g/dL RDW (11.7-14.4) % Plt Count (182-369) x10^3/uL MPV (9.4-12.3) fL Gran % (34.0-71.1) % Immature Gran % (Auto) (0.001-0.429) % Nucleat RBC Rel Count (0.00-0.2) % Eos # (Auto) (0.04-0.36) x10^3/uL Immature Gran # (Auto) (0.001-0.031) x10^3u/L Absolute Lymphs (auto) (1.18-3.74) x10^3/uL Absolute Monos (auto) (0.24-0.86) x10^3/uL Absolute Nucleated RBC (0.00-0.012) x10^3u/L Lymphocytes % (19.3-51.7) % Monocytes % (4.7-12.5) % Eosinophils % (0.7-5.8) % Basophils % (0.1-1.2) % Absolute Granulocytes (1.56-6.13) x10^3/uL Basophils # (0.01-0.08) x10^3/uL PT 10.9 (9.4-12.5) SECONDS INR 1.00 (0.8-3.0) APTT 25.3 (25.1-36.5) SECONDS pO2/FiO2 Ratio % VBG pH (7.32-7.42) VBG pCO2 at Pat Temp (42-55) mm/Hg VBG pO2 at Pat Temp (25-40) mm/Hg VBG HCO3 (22-28) meq/L VBG O2 Sat (Ken) (95-100) VBG Base Excess (-2.0-2.0) VBG Hemoglobin VBG Carboxyhemoglobin (0.0-6.9) % T HGB POC Potassium (3.5-5.1) Sodium 137 (135-145) mmol/L Potassium 3.7 (3.5-5.1) mmol/L Chloride 101 (98-107) mmol/L Carbon Dioxide 19 L (22-30) mmol/L Anion Gap 21.6 H (5-15) MEQ/L BUN 26 H (7-17) mg/dL Creatinine 0.90 (0.52-1.04) mg/dL Estimated GFR 67.1 ML/MIN Glucose 121 H (74-106) mg/dL Lactic Acid 4.8 H (0.4-2.0) Calcium 9.6 (8.4-10.2) mg/dL Magnesium 1.5 L (1.6-2.3) mg/dL Total Bilirubin 1.00 (0.2-1.3) mg/dL AST 37 H (14-36) U/L ALT 27 (0-35) U/L Alkaline Phosphatase 82 (38-126) U/L Troponin I (0.000-0.033) ng/mL Serum Total Protein 8.4 H (6.3-8.2) g/dL Albumin 4.4 (3.5-5.0) g/dL TSH 3rd Generation 0.388 L (0.470-4.680) mIU/L Urine Color (Yellow) Urine Appearance (Clear) Urine pH (4.6-8.0) Ur Specific [place] (1.005-1.030) Urine Protein (Negative) Urine Glucose (UA) (Negative) mg/dL Urine Ketones (Negative) Urine Blood (Negative) Urine Nitrite (Negative) Urine Bilirubin (Negative) Urine Urobilinogen (0.2) mg/dL Ur Leukocyte Esterase (Negative) U Hyaline Cast (Auto) (0-2) /LPF Urine Microscopic RBC (0-5) /HPF Urine Microscopic WBC (0-5) /HPF Ur Epithelial Cells (None Seen) /HPF Urine Bacteria (None Seen) /HPF Urine Culture Reflexed (NO) Urine Opiates Level (NEGATIVE) Ur Methadone (NEGATIVE) Urine Barbiturates (NEGATIVE) Ur Phencyclidine (PCP) (NEGATIVE) Urine Amphetamine (NEGATIVE) U Benzodiazepine Level (NEGATIVE) Urine Cocaine (NEGATIVE) Urine Marijuana (THC) (NEGATIVE) Ethyl Alcohol < 10 (0-10) mg/dL Influenza Type A Ag (NEGATIVE) Influenza Type B Ag (NEGATIVE) RSV (PCR) (NEGATIVE) SARS-CoV-2 (PCR) (NEGATIVE) Slides for Path Review 04/20/24 04/20/24 04/20/24 Range/Units 11:08 11:08 10:51 WBC 13.9 H (3.98-10.04) x10^3/uL RBC 4.04 (3.93-5.22) x10^6/uL Hgb 13.0 (11.2-15.7) g/dL Hct 38.2 (34.1-44.9) % MCV 94.6 (79.4-94.8) fL MCH 32.2 (25.6-32.2) pg MCHC 34.0 (32.2-35.5) g/dL RDW 12.1 (11.7-14.4) % Plt Count 503 H (182-369) x10^3/uL MPV 8.7 L (9.4-12.3) fL Gran % 76.1 H (34.0-71.1) % Immature Gran % (Auto) 0.5 H (0.001-0.429) % Nucleat RBC Rel Count 0.0 (0.00-0.2) % Eos # (Auto) 0.01 L (0.04-0.36) x10^3/uL Immature Gran # (Auto) 0.07 H (0.001-0.031) x10^3u/L Absolute Lymphs (auto) 1.44 (1.18-3.74) x10^3/uL Absolute Monos (auto) 1.75 H (0.24-0.86) x10^3/uL Absolute Nucleated RBC 0.00 (0.00-0.012) x10^3u/L Lymphocytes % 10.3 L (19.3-51.7) % Monocytes % 12.6 H (4.7-12.5) % Eosinophils % 0.1 L (0.7-5.8) % Basophils % 0.4 (0.1-1.2) % Absolute Granulocytes 10.61 H (1.56-6.13) x10^3/uL Basophils # 0.05 (0.01-0.08) x10^3/uL PT (9.4-12.5) SECONDS INR (0.8-3.0) APTT (25.1-36.5) SECONDS pO2/FiO2 Ratio % VBG pH (7.32-7.42) VBG pCO2 at Pat Temp (42-55) mm/Hg VBG pO2 at Pat Temp (25-40) mm/Hg VBG HCO3 (22-28) meq/L VBG O2 Sat (Ken) (95-100) VBG Base Excess (-2.0-2.0) VBG Hemoglobin VBG Carboxyhemoglobin (0.0-6.9) % T HGB POC Potassium (3.5-5.1) Sodium (135-145) mmol/L Potassium (3.5-5.1) mmol/L Chloride (98-107) mmol/L Carbon Dioxide (22-30) mmol/L Anion Gap (5-15) MEQ/L BUN (7-17) mg/dL Creatinine (0.52-1.04) mg/dL Estimated GFR ML/MIN Glucose (74-106) mg/dL Lactic Acid (0.4-2.0) Calcium (8.4-10.2) mg/dL Magnesium (1.6-2.3) mg/dL Total Bilirubin (0.2-1.3) mg/dL AST (14-36) U/L ALT (0-35) U/L Alkaline Phosphatase (38-126) U/L Troponin I 0.012 (0.000-0.033) ng/mL Serum Total Protein (6.3-8.2) g/dL Albumin (3.5-5.0) g/dL TSH 3rd Generation (0.470-4.680) mIU/L Urine Color (Yellow) Urine Appearance (Clear) Urine pH (4.6-8.0) Ur Specific [place] (1.005-1.030) Urine Protein (Negative) Urine Glucose (UA) (Negative) mg/dL Urine Ketones (Negative) Urine Blood (Negative) Urine Nitrite (Negative) Urine Bilirubin (Negative) Urine Urobilinogen (0.2) mg/dL Ur Leukocyte Esterase (Negative) U Hyaline Cast (Auto) (0-2) /LPF Urine Microscopic RBC (0-5) /HPF Urine Microscopic WBC (0-5) /HPF Ur Epithelial Cells (None Seen) /HPF Urine Bacteria (None Seen) /HPF Urine Culture Reflexed (NO) Urine Opiates Level NEGATIVE (NEGATIVE) Ur Methadone NEGATIVE (NEGATIVE) Urine Barbiturates NEGATIVE (NEGATIVE) Ur Phencyclidine (PCP) NEGATIVE (NEGATIVE) Urine Amphetamine NEGATIVE (NEGATIVE) U Benzodiazepine Level NEGATIVE (NEGATIVE) Urine Cocaine NEGATIVE (NEGATIVE) Urine Marijuana (THC) NEGATIVE (NEGATIVE) Ethyl Alcohol (0-10) mg/dL Influenza Type A Ag (NEGATIVE) Influenza Type B Ag (NEGATIVE) RSV (PCR) (NEGATIVE) SARS-CoV-2 (PCR) (NEGATIVE) Slides for Path Review YES 04/20/24 Range/Units 10:50 WBC (3.98-10.04) x10^3/uL RBC (3.93-5.22) x10^6/uL Hgb (11.2-15.7) g/dL Hct (34.1-44.9) % MCV (79.4-94.8) fL MCH (25.6-32.2) pg MCHC (32.2-35.5) g/dL RDW (11.7-14.4) % Plt Count (182-369) x10^3/uL MPV (9.4-12.3) fL Gran % (34.0-71.1) % Immature Gran % (Auto) (0.001-0.429) % Nucleat RBC Rel Count (0.00-0.2) % Eos # (Auto) (0.04-0.36) x10^3/uL Immature Gran # (Auto) (0.001-0.031) x10^3u/L Absolute Lymphs (auto) (1.18-3.74) x10^3/uL Absolute Monos (auto) (0.24-0.86) x10^3/uL Absolute Nucleated RBC (0.00-0.012) x10^3u/L Lymphocytes % (19.3-51.7) % Monocytes % (4.7-12.5) % Eosinophils % (0.7-5.8) % Basophils % (0.1-1.2) % Absolute Granulocytes (1.56-6.13) x10^3/uL Basophils # (0.01-0.08) x10^3/uL PT (9.4-12.5) SECONDS INR (0.8-3.0) APTT (25.1-36.5) SECONDS pO2/FiO2 Ratio % VBG pH (7.32-7.42) VBG pCO2 at Pat Temp (42-55) mm/Hg VBG pO2 at Pat Temp (25-40) mm/Hg VBG HCO3 (22-28) meq/L VBG O2 Sat (Ken) (95-100) VBG Base Excess (-2.0-2.0) VBG Hemoglobin VBG Carboxyhemoglobin (0.0-6.9) % T HGB POC Potassium (3.5-5.1) Sodium (135-145) mmol/L Potassium (3.5-5.1) mmol/L Chloride (98-107) mmol/L Carbon Dioxide (22-30) mmol/L Anion Gap (5-15) MEQ/L BUN (7-17) mg/dL Creatinine (0.52-1.04) mg/dL Estimated GFR ML/MIN Glucose (74-106) mg/dL Lactic Acid (0.4-2.0) Calcium (8.4-10.2) mg/dL Magnesium (1.6-2.3) mg/dL Total Bilirubin (0.2-1.3) mg/dL AST (14-36) U/L ALT (0-35) U/L Alkaline Phosphatase (38-126) U/L Troponin I (0.000-0.033) ng/mL Serum Total Protein (6.3-8.2) g/dL Albumin (3.5-5.0) g/dL TSH 3rd Generation (0.470-4.680) mIU/L Urine Color Yellow (Yellow) Urine Appearance Clear (Clear) Urine pH 5.5 (4.6-8.0) Ur Specific [place] 1.020 (1.005-1.030) Urine Protein 30 (Negative) Urine Glucose (UA) Negative (Negative) mg/dL Urine Ketones 40 A (Negative) Urine Blood Trace (Negative) Urine Nitrite Negative (Negative) Urine Bilirubin Negative (Negative) Urine Urobilinogen 0.2 (0.2) mg/dL Ur Leukocyte Esterase Small A (Negative) U Hyaline Cast (Auto) NONE SEEN (0-2) /LPF Urine Microscopic RBC 3-5 (0-5) /HPF Urine Microscopic WBC 0-2 (0-5) /HPF Ur Epithelial Cells None Seen (None Seen) /HPF Urine Bacteria None Seen (None Seen) /HPF Urine Culture Reflexed YES (NO) Urine Opiates Level (NEGATIVE) Ur Methadone (NEGATIVE) Urine Barbiturates (NEGATIVE) Ur Phencyclidine (PCP) (NEGATIVE) Urine Amphetamine (NEGATIVE) U Benzodiazepine Level (NEGATIVE) Urine Cocaine (NEGATIVE) Urine Marijuana (THC) (NEGATIVE) Ethyl Alcohol (0-10) mg/dL Influenza Type A Ag (NEGATIVE) Influenza Type B Ag (NEGATIVE) RSV (PCR) (NEGATIVE) SARS-CoV-2 (PCR) (NEGATIVE) Slides for Path Review - Progress Progress: improved Progress Note: 04/20/24 10:12 nursing staff reporting pt is having word finding difficulties in CT scanner w/ some continued slurring of speech 04/20/24 10:32 received call from radiology partners that pt's head CT was negative for acute hemorrhage 04/20/24 10:34 CT head: 1. Faint low-attenuation areas left frontal periventricular region and external capsule are likely a part of chronic microvascular ischemic changes however possibility of underlying acute ischemic insult cannot be entirely excluded. 2. Microvascular white matter ischemic changes and senile changes. 3. No intra or extra-axial hematomas or parenchymal territorial hypodense areas suggest acute ischemic insult. 4. Early changes of stroke may not be detected on a CT scan. If there is strong clinical suspicion of stroke, then suggest MRI with diffusion-weighted imaging. 04/20/24 10:42 pt is in pain intermittently on exam, does not localize her pain well, pt is tremulous throughout exam, significant tremors, tachycardic, pt is AxO x 2 on repeat exam, PERRLA, EOMI intact, able to follow commands 04/20/24 10:44 blood glucose 102 on finger stick 04/20/24 10:50 pt pulled out peripheral IV 04/20/24 11:00 pt is febrile at 103F on rectal temp - given 650mg rectal acetaminophen; pt meeting SIRS criteria w/ fever and tachycardia - will order start high volume fluids and order cultures of blood and urine pt is very agitated and attempting to get out of bed, concerns for endangerment of pt and staff as pt is thrashing in bed and preventing lab draws and ekg, as well as necessary imaging - will give IM haldol 2mg, will consider additional dose IV once IV is placed - risks of adding sedative medication are outweighed by need to control pt behavior and obtain workup for sepsis and CVA 04/20/24 11:13 lactic acid 4.8 - IV zosyn ordered 04/20/24 11:14 pt continues to inhibit care 2/2 agitation and attempts to get out of bed, [facility] staff has been attempting to gently redirect and keep pt settled w/o success, will give additional 2mg haldol IV at this time 04/20/24 11:15 04/20/24 11:17 initial EKG attempted at 10:53 was not useable, entirely artifact, will repeat 04/20/24 11:20 04/20/24 12:16 wbc 13.9, generally hemoconcentrated, ph 7.55, UA not suggestive of UTI, cxr shows no focal consolidation, TSH mildly decreased, pt much less agitated following haldol, vitals stable - continues to be tachy 120s, will perform CTA head/neck 04/20/24 12:21 04/20/24 13:27 mental status has significantly improved, pt now axo x3, pt speech has significantly improved, temp down to 98F - continuing high volume fluids at this time, CTA head/neck pending 04/20/24 14:08 CTA head/neck showed: 1. Normal CT angiography of the head. No evidence of significant vascular abnormalities. 2. Faint low-attenuation areas left frontal periventricular region and external capsule are likely a part of chronic microvascular ischemic. 3. Changes however possibility of underlying acute ischemic insult cannot be entirely excluded( according to the dedicated CT head). 04/20/24 14:[address] angiography of the head and neck. No evidence of significant vascular abnormalities 04/20/24 14:27 Pt continues to be AxO x 3, planning for transfer to outside facility for MRI and completion of CVA r/o 04/20/24 14:38 discussed transfer to [facility] w/ Dr Booth (hospitalist) who is willing to accept, transfer center reported they would not have a bed available until tomorrow. We will attempt to find other transfer option that will be able to accept sooner. [facility] who reported they did not have MRI capability today, will continue to search for other facilities 04/20/24 14:49 I discussed pt case w/ hospitalist at [facility] Dr Camarena who recommended that pt case does not appear to require MRI, she does not believe pt meets requirement for transfer to their facility will discuss w/ hospitalist team at [facility] 04/20/24 14:59 I discussed pt case w/ Dr Bernal (hospitalist) who is willing to accept for admission to [facility] Discussed with Dr.: Arriola Medical Desision Making - Diagnostic Testing Diagnostic test were ordered, analyzed, and reviewed by me: Yes Radiological Interpretation: Reviewed by me, Teleradiologist Report - Risk of complications The pt has a high risk of morbidity or mortality based on: Decision regarding hospitilization or escalation of hosp level of care - Departure Departure Disposition: Observation Clinical Impression: Encephalopathy Qualifiers: Encephalopathy type: unspecified encephalopathy Qualified Code(s): G93.40 - Encephalopathy, unspecified Sepsis Qualifiers: Sepsis type: sepsis due to unspecified organism Sepsis acute organ dysfunction status: without acute organ dysfunction Qualified Code(s): A41.9 - Sepsis, unspecified organism Condition: Stable Critical Care Time: No Referrals: YOUSUF ZHANG MD [Primary Care Provider] - Follow up/PCP as directed
--- NOTE | 2024-04-20 10:29 | XRAY ---
CLINICAL HISTORY: weaknes/slurred speach COMPARISON: None. TECHNIQUE: An axial non-contrast CT scan of the brain was performed from the skull base to the high parietal region. One of the following dose-reduction techniques was utilized for this exam. Automated exposure control, adjustment of the mA and/or kV according to patient size, and use of iterative reconstruction. CT scan performed according to ALARA principles. FINDINGS: Faint low-attenuation areas left frontal periventricular region and external capsule are likely a part of chronic microvascular ischemic changes however possibility of underlying acute ischemic insult cannot be entirely excluded. Patchy hypodensities are seen in the bilateral cerebral deep and subcortical white matter region, and are non-specific but may represent chronic microvascular white matter ischemic changes. The ventricular system, cortical sulci, and basal cisterns are prominent and consistent with senile changes. Griffiths-white matter differentiation is maintained. No midline shifts or deformity. No intracerebral or extra axial hematoma. Normal CT appearance of the posterior fossa structures namely the cerebellar hemispheres, brainstem, and cerebellar peduncles. The bony structures in the skull base are unremarkable. There are no definite calvarium fractures. The scanned paranasal sinuses are clear. IMPRESSION: 1. Faint low-attenuation areas left frontal periventricular region and external capsule are likely a part of chronic microvascular ischemic changes however possibility of underlying acute ischemic insult cannot be entirely excluded. 2. Microvascular white matter ischemic changes and senile changes. 3. No intra or extra-axial hematomas or parenchymal territorial hypodense areas suggest acute ischemic insult. 4. Early changes of stroke may not be detected on a CT scan. If there is strong clinical suspicion of stroke, then suggest MRI with diffusion-weighted imaging. Electronically Signed by: Park Young MD. (04/20/2024 10:25:02 EST)
[2024-04-20] MEDS ORDERED: FEVERALL 650 MG ONE (10:57)
[2024-04-20] MEDS ORDERED: Haldol 5 MG ONE (11:03)
[2024-04-20] MEDS ORDERED: Sodium Chloride 0.9% 1000 ML 1,000 ML ONE ×2 (11:08→12:17)
[2024-04-20 11:09] LABS: Absolute Neutrophil Ct (ANC) 10.61 x10^3/uL (1.56-6.13); BASOPHIL % 0.4 % (0.1-1.2); Basophil (Absolute #) 0.05 x10^3/uL (0.01-0.08); Eosinophil % 0.1 % (0.7-5.8); Eosinophil (Absolute #) 0.01 x10^3/uL (0.04-0.36); Hematocrit 38.2 % (34.1-44.9); IMMATURE GRAN # 0.07 x10^3u/L (0.001-0.031); IMMATURE GRAN % 0.5 % (0.001-0.429); Lymphocyte (Absolute #) 1.44 x10^3/uL (1.18-3.74); Lymphocytes % 10.3 % (19.3-51.7); Mean Cell Volume 94.6 fL (79.4-94.8); Mean Corpuscular Hemoglobin 32.2 pg (25.6-32.2); Mean Platelet Volume 8.7 fL (9.4-12.3); Monocyte (Absolute #) 1.75 x10^3/uL (0.24-0.86); Monocytes % 12.6 % (4.7-12.5); Neutrophil % 76.1 % (34.0-71.1); Platelet Count 503 x10^3/uL (182-369); Red Blood Count 4.04 x10^6/uL (3.93-5.22); Red Cell Distribution Width 12.1 % (11.7-14.4); White Blood Count 13.9 x10^3/uL (3.98-10.04)
[2024-04-20] MEDS: FEVERALL 650 MG PR ONE (11:09)
[2024-04-20] MEDS: Haldol 5 MG IM ONE (11:09)
[2024-04-20] MEDS: Sodium Chloride 0.9% 1000 ML 1,000 ML IV STA ×3 (11:09→20:54)
[2024-04-20 11:15] LABS: Amphetamine,Urine NEGATIVE (NEGATIVE); Barbiturate,Urine NEGATIVE (NEGATIVE); Benzodiazepine,Urine NEGATIVE (NEGATIVE); Cocaine,Urine NEGATIVE (NEGATIVE); Methadone,Urine NEGATIVE (NEGATIVE); Opiate,Urine NEGATIVE (NEGATIVE); PCP,Urine NEGATIVE (NEGATIVE); THC,Urine NEGATIVE (NEGATIVE)
[2024-04-20 11:17] LABS: Appearance Clear (Clear); Bacteria None Seen /HPF (None Seen); Bilirubin Negative (Negative); Blood Trace (Negative); Epithelial Cells None Seen /HPF (None Seen); Glucose, Urine Negative (Negative); Hyaline Casts NONE SEEN /LPF (0-2); Ketones 40 (Negative); Leukocyte Esterase Small (Negative); Nitrite Negative (Negative); Ph 5.5 (4.6-8.0); Protein,Urine Dip 30 (Negative); Urobilinogen 0.2 mg/dL (0.2); WBC 0-2 /HPF (0-5)
[2024-04-20] MEDS: Haldol 5 MG IV ONE (11:18)
[2024-04-20 11:26] LABS: PROTIME 10.9 SECONDS (9.4-12.5); PTT 25.3 SECONDS (25.1-36.5)
[2024-04-20] MEDS ORDERED: Sodium Chloride 100ML MINI-BAG PLUS 100 ML IV ONE ×3 (11:27→23:08)
[2024-04-20] MEDS ORDERED: PIPERACILLIN/TAZOBACTAM IV ONE ×3 (11:27→23:07)
[2024-04-20] MEDS: PIPERACILLIN/TAZOBACTAM 3.375 GM in Sodium Chloride 100ML MINI-BAG PLUS 100 ML IV ONE (11:31)
--- NOTE | 2024-04-20 11:46 | XRAY ---
CLINICAL HISTORY: pain COMPARISON: None. TECHNIQUE: X-ray images of the bilateral hip joints and pelvis were obtained in anteroposterior (AP) and lateral projections. FINDINGS: Pelvic Bones: Pelvic bones, including the iliac wings, ischium, pubis, and sacrum, are normal and intact. No evidence of fractures, dislocations, or significant osseous lesions. Hip Joints: Preserved joint spaces. No evidence of hip dislocation, subluxation, or significant degenerative changes. No osteophytes, joint space narrowing, or sclerosis were noted. Acetabular structures appear normal and intact. No signs of acetabular fracture or dysplasia. Femoral heads are normal and centered within the acetabulum. No evidence of fractures, avascular necrosis, or significant deformities. Sacroiliac joints appear normal and unremarkable. Symphysis Pubis: The symphysis pubis is normal and intact. No evidence of separation or widening. Soft Tissues: Visualized soft tissues are normal and unremarkable. No soft tissue swelling, calcifications, or masses. Additional Findings: Bone density is reduced. IMPRESSION: 1. Bone density is reduced. 2. No evidence of acute fractures or dislocations. DISCLAIMER:A subtle bone abnormality or fracture may not be readily apparent on x-rays, thus clinical correlation and further imaging including follow up CT, MRI, or follow up x-rays are advised as needed. Electronically Signed by: Park Young MD. (04/20/2024 11:42:22 EST)
[2024-04-20 11:47] LABS: VBG CARBOXYHEMOGLOBIN 3.4 % T HGB (0.0-6.9); VBG HCO3- 21.9 meq/L (22-28); VBG HEMOGLOBIN 13.7; VBG O2 SATURATION 62.2 (95-100); VBG POTASSIUM 3.7 (3.5-5.1); VBG pH 7.55 (7.32-7.42)
[2024-04-20 11:56] LABS: ALBUMIN 4.4 g/dL (3.5-5.0); ALKALINE PHOSPHATASE 82 U/L (38-126); ANION GAP 21.6 MEQ/L (5-15); BLOOD UREA NITROGEN 26 mg/dL (7-17); CHLORIDE 101 mmol/L (98-107); Calcium 9.6 mg/dL (8.4-10.2); Carbon Dioxide 19 mmol/L (22-30); EST GLOMERULAR FILTRATION RATE 67.1 ML/MIN; ETHYL ALCOHOL < 10 mg/dL (0-10); Glucose 121 mg/dL (74-106); MAGNESIUM 1.5 mg/dL (1.6-2.3); Potassium 3.7 mmol/L (3.5-5.1); SGOT/AST 37 U/L (14-36); SGPT/ALT 27 U/L (0-35); SODIUM 137 mmol/L (135-145); TSH, 3RD Generation 0.388 mIU/L (0.470-4.680); Total Protein 8.4 g/dL (6.3-8.2)
[2024-04-20 12:09] LABS: Slide Review 1 YES
[2024-04-20 12:28] LABS: INFLUENZA A NEGATIVE (NEGATIVE); INFLUENZA B NEGATIVE (NEGATIVE); RESPIRATORY SYNCTIAL VIRUS NEGATIVE (NEGATIVE); SARS-CoV-2 Xpert Express NEGATIVE (NEGATIVE)
[2024-04-20] MEDS: Sodium Chloride 0.9% 1000 ML 1,000 ML IV SCH (13:43)
--- NOTE | 2024-04-20 14:06 | XRAY ---
CLINICAL HISTORY: stroke r/o, slurred speech, tremor COMPARISON: No previous studies are available for comparison. TECHNIQUE: CT angiography of the head and neck was performed following the intravenous administration of [80cc Isovue 370] of iodinated contrast material. Axial images were obtained from the aortic arch to the vertex. Coronal and sagittal reformatted images were also reviewed. One of the following dose reduction techniques was utilized for this exam. Automated exposure control, adjustment of the mA and/or kV according to patient size, and use of iterative reconstruction. One of these 3D techniques was utilized: Maximum Intensity Pixel (MIP), 3D Reconstructed Images, Volume Rendered Images, Surface Shaded Rendering. FINDINGS: Carotid Arteries: The common, internal, and external carotid arteries are patent bilaterally with no evidence of significant stenosis, aneurysm, or dissection. There is no evidence of atherosclerotic plaque causing significant luminal narrowing. Vertebral Arteries: The vertebral arteries are patent bilaterally with no evidence of significant stenosis, aneurysm, or dissection. Thyroid Gland: The thyroid gland is normal in size and appearance with no focal lesions. Lymph Nodes: There is no evidence of significant lymphadenopathy in the neck. Soft Tissues: The soft tissues of the neck are unremarkable with no evidence of masses or abnormal collections. Additional Findings: No other significant findings are noted. IMPRESSION: Normal CT angiography of the head and neck. No evidence of significant vascular abnormalities. Electronically Signed by: Park Young MD. (04/20/2024 14:01:27 EST)
--- NOTE | 2024-04-20 14:06 | XRAY ---
CLINICAL HISTORY: stroke r/o, slurred speech COMPARISON: No previous studies are available for comparison. TECHNIQUE: CT angiography of the head was performed following the intravenous administration of [80cc Isovue 370] of iodinated contrast material. Contiguous axial images were obtained from the base of the skull to the vertex. Coronal and sagittal reformatted images were also reviewed. One of these 3D techniques was utilized: Maximum Intensity Pixel (MIP), 3D Reconstructed Images, Volume Rendered Images, Surface Shaded Rendering. One of the following dose reduction techniques was utilized for this exam. Automated exposure control, adjustment of the mA and/or kV according to patient size, and use of iterative reconstruction. FINDINGS: Intracranial Arteries: The intracranial arteries, including the anterior cerebral arteries, middle cerebral arteries, posterior cerebral arteries, basilar artery, and vertebral arteries, are all patent without evidence of significant stenosis, aneurysm, or dissection. There is no evidence of vascular malformations. [place]: The [place] is intact with no anatomical variations or abnormalities noted. All segments are well-visualized and normal in appearance. Venous System: The visualized portions of the venous system, including the dural venous sinuses, are patent with no evidence of thrombosis. Brain Parenchyma: Faint low-attenuation areas left frontal periventricular region and external capsule are likely a part of chronic microvascular ischemic. Changes however possibility of underlying acute ischemic insult cannot be entirely excluded( according to the dedicated CT head). Bones: The bony structures of the skull are intact without evidence of fracture or destructive lesions. Soft Tissues: The visualized soft tissues of the head are unremarkable. Additional Findings: No other significant findings are noted. IMPRESSION: 1. Normal CT angiography of the head. No evidence of significant vascular abnormalities. 2. Faint low-attenuation areas left frontal periventricular region and external capsule are likely a part of chronic microvascular ischemic. 3. Changes however possibility of underlying acute ischemic insult cannot be entirely excluded( according to the dedicated CT head). Electronically Signed by: Park Young MD. (04/20/2024 14:01:10 EST)
--- NOTE | 2024-04-20 14:26 | XRAY ---
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 TECHNIQUE: CT scan of the pelvis bones was performed without the administration of intravenous contrast. Contiguous axial images were obtained from the iliac crests to the pubic symphysis. Coronal and sagittal reformatted images were also reviewed. One of the following dose reduction techniques was utilized for this exam. Automated exposure control, adjustment of the mA and/or kV according to patient size, and use of iterative reconstruction. FINDINGS: Motion artifacts affect the image quality. Hips: The left hip joint shows joint space narrowing, with subchondral cysts and sclerosis at the acetabulum surface and a tiny intra-articular loose body. The right hip joint appears unremarkable. Pelvic Bones: The pelvic bones are intact without evidence of fracture or destructive lesions. Unremarkable sacroiliac joints. The lower lumbar spine shows scoliosis with chronic spondylosis. Bladder: The urinary bladder is adequately distended and appears normal. No evidence of wall thickening or abnormal enhancement. Pelvic organs: Uterus and ovaries not seen, likely surgically removed. No pelvic mass or cysts. Rectum and Colon: The rectum and colon are within normal limits without evidence of wall thickening or abnormal enhancement. Pelvic Soft Tissues: The pelvic soft tissues are unremarkable without evidence of mass or abnormal fluid collection. Additional Findings: No free fluid or lymphadenopathy was identified in the pelvis. IMPRESSION: 1. Mild chronic degenerative arthritis of the left hip joint. 2. Lower lumbar spine shows chronic degenerative spondylosis. Electronically Signed by: Park Young MD. (04/20/2024 14:21:19 EST)
--- NOTE | 2024-04-20 15:53 | PCM.HP ---
History of Present Illness - Chief Complaint Chief Complaint: encephalopathy/sepsis Date: 04/20/24 History of Present Illness: Ms. Montiel is a 73 year old female with a pmhx of angina, HTN, IBS, OP, scoliosis, anxiety, and depression who presented to ED 04/20/24 via EMS after family noted a change in patients mental status. Patient was also noted in ED with slurred speech and combative behaviors. Per family report patient was sick with a respiratory virus a few weeks ago. Patient is A&O x 4 during my exam. She endorses shortness of breath and mild dizziness with ambulation. She is still having mild difficulty finding words. She reports her was sick this week with a respiratory illness and fell at home, she tried to help him up and then fell herself. She denies LOC or trauma during that fall. She does complain of right hip and back pain which is chronic for her with her h/o OP and scoliosis but exacerbated by this recent fall. She sees Dr. Mason pain management OP. She denies recent fevers, nausea, vomiting, abdominal pain, dysuria, cough, co ngestion, open wounds, dizziness, or headaches. Upon arrival to ED patient febrile with temp at 103.3, tachycardic with HR at 132, and tachypneic with RR at 22. CT of head and pelvis negative. CXR with no focal consolidation per ED read. CTA head and neck unremarkable. Hip/pelvis xray with no acute findings. Initial lab findings remarkable for leukocytosis with WBC at 13.9, thrombocytosis with plt at 503, Co2 at 19, anion gap at 21.6, lactic acid 0.7<4.8, mag level at 1.5, trops 0.079 >0.012. UA unremarkable. UDS negative. Respiratory viral panel negative. Patient given 2L fluid bolus and zo syn in ED as well as Haldol and acetaminophen with noted improvement in mentation, afebrile, and no longer with slurred speech. Admit patient for sepsis of unknown etiology. Plan broad spectrum antibiotics with vanc and zosyn. - Review of Systems Constitutional: Fever, Fatigue, Weakness Eyes: No Symptoms Ears, Nose, & Throat: No Symptoms Respiratory: Short Of Breath Cardiac: No Symptoms Abdominal/Gastrointestinal: No Symptoms Genitourinary Symptoms: No Symptoms Musculoskeletal: Back Pain, Joint Pain (right hip) Skin: No Symptoms Neurological: Dizziness Psychological: No Symptoms Endocrine: No Symptoms Hematologic/Lymphatic: No Symptoms Immunological/Allergic: No Symptoms Medications & Allergies Home Medications: Home Medication List Amitriptyline HCl 200 mg PO QHS 06/16/15 [History Confirmed 04/20/24] Cholecalciferol (Vitamin D3) [Vitamin D3] 2,000 unit PO DAILY 01/26/17 [History Confirmed 04/20/24] hydroCHLOROthiazide [Hydrochlorothiazide] 12.5 mg PO DAILY 11/01/20 [History Confirmed 04/20/24] Metoprolol Succinate 50 mg [Toprol Xl 50 MG] 50 mg BID 06/01/21 [History Confirmed 04/20/24] Aspirin [Aspirin EC] 81 mg PO DAILY #30 tablet 05/06/22 [Rx Confirmed 04/20/24] Calcium Carbonate [Calcium] 500 mg PO DAILY 09/01/23 [History Confirmed 04/20/24] Allergies/Adverse Reactions: Allergies Allergy/AdvReac Type Severity Reaction Status Date / Time carbamazepine [From Tegretol] Allergy Verified 04/20/24 09:55 diazepam [From Valium] AdvReac Verified 04/20/24 09:55 hydrocodone AdvReac Verified 04/20/24 09:55 - Past Medical History Past Medical History: Yes ENT History: Cataracts Cardiac History: Angina, Hypertension Respiratory History: No Pertinent History Endocrine Medical History: No Pertinent History Musculoskelatal History: Osteoporosis, Other GI Medical History: Irritable Bowel History: No Pertinent History Pyscho-Social History: Anxiety, Depression Comment: PT HAS BEEN TO FOR A CONSULTATION, NOT A CANDIDATE FOR SURGERY DUE TO OSTEOPOROSIS. NO COMPRESSION FRACTURES NOTED. PT SEES DR. PAYNE AND NOTES HER HEART IS FINE AT THIS TIME, SEES HIM EVERY 6 MONTHS. hx of scoliosis, Sees Dr Mason at our pain clinic - Past Surgical History Past Surgical History: Yes Neuro Surgical History: No Pertinent History Cardiac History: No Pertinent History Respiratory Surgery: No Pertinent History GI Surgical History: No Pertinent History Genitourinary Surgical Hx: No Pertinent History Musculskeletal Surgical Hx: Orthopedic Surgery Female Surgical History: Section, Hysterectomy Other Surgical History: bilateral jaw reconstruction 1983, shoulder left fx Jan 2018,steriod inj in back Significant Family History: cancer - Social History Smoking Status: Former smoker Exposure to second hand smoke: No Alcohol: None Drug Use: none - Social Determinants of Health Will the patient participate in the screening: Yes Do you worry about a steady place to live?: No Do you have any problems with any of the following?: No known problems In the past 12 months,have you had to go without utilities?: No Have you or anyone in your house had to go without enough: No Transportation Issues: No Has anyone in your support network made you feel unsafe?: No - Physical Exam Vital Signs: Vital Signs - 24 hr Temp Pulse Resp BP BP Pulse Ox 04/20/24 15:01 92 L 04/20/24 14:00 114 H 18 141/86 93 L 04/20/24 13:30 115 H 21 142/93 92 L 04/20/24 13:12 98.1 F 04/20/24 13:10 118 H 21 148/94 95 04/20/24 13:06 119 H 10 L 04/20/24 12:30 105/85 04/20/24 12:00 125 H 24 142/91 93 L 04/20/24 11:30 129 H 18 145/103 04/20/24 11:19 130 H 17 140/88 04/20/24 11:10 142 H 24 04/20/24 10:13 103.3 F 132 H 22 140/88 96 General Appearance: no apparent distress Neurologic Exam: alert, oriented x 3, cooperative, confusion Eye Exam: PERRL/EOMI Ears, Nose, Throat Exam: normal ENT inspection Neck Exam: normal inspection Respiratory Exam: normal breath sounds, lungs clear Cardiovascular Exam: tachycardia Gastrointestinal/Abdomen Exam: soft, normal bowel sounds Pelvic Exam: not done Rectal Exam: deferred Back Exam: normal inspection Extremity Exam: normal inspection Skin Exam: pale Results - Labs Lab/Micro Results: Lab Results-Last 24 Hours 04/20/24 04/20/24 04/20/24 Range/Units 10:50 10:51 11:08 WBC 13.9 H (3.98-10.04) x10^3/uL RBC 4.04 (3.93-5.22) x10^6/uL Hgb 13.0 (11.2-15.7) g/dL Hct 38.2 (34.1-44.9) % MCV 94.6 (79.4-94.8) fL MCH 32.2 (25.6-32.2) pg MCHC 34.0 (32.2-35.5) g/dL RDW 12.1 (11.7-14.4) % Plt Count 503 H (182-369) x10^3/uL MPV 8.7 L (9.4-12.3) fL Gran % 76.1 H (34.0-71.1) % Immature Gran % (Auto) 0.5 H (0.001-0.429) % Nucleat RBC Rel Count 0.0 (0.00-0.2) % Eos # (Auto) 0.01 L (0.04-0.36) x10^3/uL Immature Gran # (Auto) 0.07 H (0.001-0.031) x10^3u/L Absolute Lymphs (auto) 1.44 (1.18-3.74) x10^3/uL Absolute Monos (auto) 1.75 H (0.24-0.86) x10^3/uL Absolute Nucleated RBC 0.00 (0.00-0.012) x10^3u/L Lymphocytes % 10.3 L (19.3-51.7) % Monocytes % 12.6 H (4.7-12.5) % Eosinophils % 0.1 L (0.7-5.8) % Basophils % 0.4 (0.1-1.2) % Absolute Granulocytes 10.61 H (1.56-6.13) x10^3/uL Basophils # 0.05 (0.01-0.08) x10^3/uL PT (9.4-12.5) SECONDS INR (0.8-3.0) APTT (25.1-36.5) SECONDS pO2/FiO2 Ratio % VBG pH (7.32-7.42) VBG pCO2 at Pat Temp (42-55) mm/Hg VBG pO2 at Pat Temp (25-40) mm/Hg VBG HCO3 (22-28) meq/L VBG O2 Sat (Ken) (95-100) VBG Base Excess (-2.0-2.0) VBG Hemoglobin VBG Carboxyhemoglobin (0.0-6.9) % T HGB POC Potassium (3.5-5.1) Sodium (135-145) mmol/L Potassium (3.5-5.1) mmol/L Chloride (98-107) mmol/L Carbon Dioxide (22-30) mmol/L Anion Gap (5-15) MEQ/L BUN (7-17) mg/dL Creatinine (0.52-1.04) mg/dL Estimated GFR ML/MIN Glucose (74-106) mg/dL Lactic Acid (0.4-2.0) Calcium (8.4-10.2) mg/dL Magnesium (1.6-2.3) mg/dL Total Bilirubin (0.2-1.3) mg/dL AST (14-36) U/L ALT (0-35) U/L Alkaline Phosphatase (38-126) U/L Troponin I (0.000-0.033) ng/mL Serum Total Protein (6.3-8.2) g/dL Albumin (3.5-5.0) g/dL TSH 3rd Generation (0.470-4.680) mIU/L Urine Color Yellow (Yellow) Urine Appearance Clear (Clear) Urine pH 5.5 (4.6-8.0) Ur Specific Dyer 1.020 (1.005-1.030) Urine Protein 30 (Negative) Urine Glucose (UA) Negative (Negative) mg/dL Urine Ketones 40 A (Negative) Urine Blood Trace (Negative) Urine Nitrite Negative (Negative) Urine Bilirubin Negative (Negative) Urine Urobilinogen 0.2 (0.2) mg/dL Ur Leukocyte Esterase Small A (Negative) U Hyaline Cast (Auto) NONE SEEN (0-2) /LPF Urine Microscopic RBC 3-5 (0-5) /HPF Urine Microscopic WBC 0-2 (0-5) /HPF Ur Epithelial Cells None Seen (None Seen) /HPF Urine Bacteria None Seen (None Seen) /HPF Urine Culture Reflexed YES (NO) Urine Opiates Level NEGATIVE (NEGATIVE) Ur Methadone NEGATIVE (NEGATIVE) Urine Barbiturates NEGATIVE (NEGATIVE) Ur Phencyclidine (PCP) NEGATIVE (NEGATIVE) Urine Amphetamine NEGATIVE (NEGATIVE) U Benzodiazepine Level NEGATIVE (NEGATIVE) Urine Cocaine NEGATIVE (NEGATIVE) Urine Marijuana (THC) NEGATIVE (NEGATIVE) Ethyl Alcohol (0-10) mg/dL Influenza Type A Ag (NEGATIVE) Influenza Type B Ag (NEGATIVE) RSV (PCR) (NEGATIVE) SARS-CoV-2 (PCR) (NEGATIVE) Slides for Path Review YES 04/20/24 04/20/24 04/20/24 Range/Units 11:08 11:08 11:08 WBC (3.98-10.04) x10^3/uL RBC (3.93-5.22) x10^6/uL Hgb (11.2-15.7) g/dL Hct (34.1-44.9) % MCV (79.4-94.8) fL MCH (25.6-32.2) pg MCHC (32.2-35.5) g/dL RDW (11.7-14.4) % Plt Count (182-369) x10^3/uL MPV (9.4-12.3) fL Gran % (34.0-71.1) % Immature Gran % (Auto) (0.001-0.429) % Nucleat RBC Rel Count (0.00-0.2) % Eos # (Auto) (0.04-0.36) x10^3/uL Immature Gran # (Auto) (0.001-0.031) x10^3u/L Absolute Lymphs (auto) (1.18-3.74) x10^3/uL Absolute Monos (auto) (0.24-0.86) x10^3/uL Absolute Nucleated RBC (0.00-0.012) x10^3u/L Lymphocytes % (19.3-51.7) % Monocytes % (4.7-12.5) % Eosinophils % (0.7-5.8) % Basophils % (0.1-1.2) % Absolute Granulocytes (1.56-6.13) x10^3/uL Basophils # (0.01-0.08) x10^3/uL PT 10.9 (9.4-12.5) SECONDS INR 1.00 (0.8-3.0) APTT 25.3 (25.1-36.5) SECONDS pO2/FiO2 Ratio % VBG pH (7.32-7.42) VBG pCO2 at Pat Temp (42-55) mm/Hg VBG pO2 at Pat Temp (25-40) mm/Hg VBG HCO3 (22-28) meq/L VBG O2 Sat (Ken) (95-100) VBG Base Excess (-2.0-2.0) VBG Hemoglobin VBG Carboxyhemoglobin (0.0-6.9) % T HGB POC Potassium (3.5-5.1) Sodium 137 (135-145) mmol/L Potassium 3.7 (3.5-5.1) mmol/L Chloride 101 (98-107) mmol/L Carbon Dioxide 19 L (22-30) mmol/L Anion Gap 21.6 H (5-15) MEQ/L BUN 26 H (7-17) mg/dL Creatinine 0.90 (0.52-1.04) mg/dL Estimated GFR 67.1 ML/MIN Glucose 121 H (74-106) mg/dL Lactic Acid (0.4-2.0) Calcium 9.6 (8.4-10.2) mg/dL Magnesium 1.5 L (1.6-2.3) mg/dL Total Bilirubin 1.00 (0.2-1.3) mg/dL AST 37 H (14-36) U/L ALT 27 (0-35) U/L Alkaline Phosphatase 82 (38-126) U/L Troponin I 0.012 (0.000-0.033) ng/mL Serum Total Protein 8.4 H (6.3-8.2) g/dL Albumin 4.4 (3.5-5.0) g/dL TSH 3rd Generation 0.388 L (0.470-4.680) mIU/L Urine Color (Yellow) Urine Appearance (Clear) Urine pH (4.6-8.0) Ur Specific Dyer (1.005-1.030) Urine Protein (Negative) Urine Glucose (UA) (Negative) mg/dL Urine Ketones (Negative) Urine Blood (Negative) Urine Nitrite (Negative) Urine Bilirubin (Negative) Urine Urobilinogen (0.2) mg/dL Ur Leukocyte Esterase (Negative) U Hyaline Cast (Auto) (0-2) /LPF Urine Microscopic RBC (0-5) /HPF Urine Microscopic WBC (0-5) /HPF Ur Epithelial Cells (None Seen) /HPF Urine Bacteria (None Seen) /HPF Urine Culture Reflexed (NO) Urine Opiates Level (NEGATIVE) Ur Methadone (NEGATIVE) Urine Barbiturates (NEGATIVE) Ur Phencyclidine (PCP) (NEGATIVE) Urine Amphetamine (NEGATIVE) U Benzodiazepine Level (NEGATIVE) Urine Cocaine (NEGATIVE) Urine Marijuana (THC) (NEGATIVE) Ethyl Alcohol < 10 (0-10) mg/dL Influenza Type A Ag (NEGATIVE) Influenza Type B Ag (NEGATIVE) RSV (PCR) (NEGATIVE) SARS-CoV-2 (PCR) (NEGATIVE) Slides for Path Review 04/20/24 04/20/24 04/20/24 Range/Units 11:10 11:20 11:46 WBC (3.98-10.04) x10^3/uL RBC (3.93-5.22) x10^6/uL Hgb (11.2-15.7) g/dL Hct (34.1-44.9) % MCV (79.4-94.8) fL MCH (25.6-32.2) pg MCHC (32.2-35.5) g/dL RDW (11.7-14.4) % Plt Count (182-369) x10^3/uL MPV (9.4-12.3) fL Gran % (34.0-71.1) % Immature Gran % (Auto) (0.001-0.429) % Nucleat RBC Rel Count (0.00-0.2) % Eos # (Auto) (0.04-0.36) x10^3/uL Immature Gran # (Auto) (0.001-0.031) x10^3u/L Absolute Lymphs (auto) (1.18-3.74) x10^3/uL Absolute Monos (auto) (0.24-0.86) x10^3/uL Absolute Nucleated RBC (0.00-0.012) x10^3u/L Lymphocytes % (19.3-51.7) % Monocytes % (4.7-12.5) % Eosinophils % (0.7-5.8) % Basophils % (0.1-1.2) % Absolute Granulocytes (1.56-6.13) x10^3/uL Basophils # (0.01-0.08) x10^3/uL PT (9.4-12.5) SECONDS INR (0.8-3.0) APTT (25.1-36.5) SECONDS pO2/FiO2 Ratio 21.0 % VBG pH 7.55 H* (7.32-7.42) VBG pCO2 at Pat Temp 25 L (42-55) mm/Hg VBG pO2 at Pat Temp 32 (25-40) mm/Hg VBG HCO3 21.9 L (22-28) meq/L VBG O2 Sat (Ken) 62.2 L (95-100) VBG Base Excess 1.0 (-2.0-2.0) VBG Hemoglobin 13.7 VBG Carboxyhemoglobin 3.4 (0.0-6.9) % T HGB POC Potassium 3.7 (3.5-5.1) Sodium (135-145) mmol/L Potassium (3.5-5.1) mmol/L Chloride (98-107) mmol/L Carbon Dioxide (22-30) mmol/L Anion Gap (5-15) MEQ/L BUN (7-17) mg/dL Creatinine (0.52-1.04) mg/dL Estimated GFR ML/MIN Glucose (74-106) mg/dL Lactic Acid 4.8 H (0.4-2.0) Calcium (8.4-10.2) mg/dL Magnesium (1.6-2.3) mg/dL Total Bilirubin (0.2-1.3) mg/dL AST (14-36) U/L ALT (0-35) U/L Alkaline Phosphatase (38-126) U/L Troponin I (0.000-0.033) ng/mL Serum Total Protein (6.3-8.2) g/dL Albumin (3.5-5.0) g/dL TSH 3rd Generation (0.470-4.680) mIU/L Urine Color (Yellow) Urine Appearance (Clear) Urine pH (4.6-8.0) Ur Specific Dyer (1.005-1.030) Urine Protein (Negative) Urine Glucose (UA) (Negative) mg/dL Urine Ketones (Negative) Urine Blood (Negative) Urine Nitrite (Negative) Urine Bilirubin (Negative) Urine Urobilinogen (0.2) mg/dL Ur Leukocyte Esterase (Negative) U Hyaline Cast (Auto) (0-2) /LPF Urine Microscopic RBC (0-5) /HPF Urine Microscopic WBC (0-5) /HPF Ur Epithelial Cells (None Seen) /HPF Urine Bacteria (None Seen) /HPF Urine Culture Reflexed (NO) Urine Opiates Level (NEGATIVE) Ur Methadone (NEGATIVE) Urine Barbiturates (NEGATIVE) Ur Phencyclidine (PCP) (NEGATIVE) Urine Amphetamine (NEGATIVE) U Benzodiazepine Level (NEGATIVE) Urine Cocaine (NEGATIVE) Urine Marijuana (THC) (NEGATIVE) Ethyl Alcohol (0-10) mg/dL Influenza Type A Ag NEGATIVE (NEGATIVE) Influenza Type B Ag NEGATIVE (NEGATIVE) RSV (PCR) NEGATIVE (NEGATIVE) SARS-CoV-2 (PCR) NEGATIVE (NEGATIVE) Slides for Path Review 04/20/24 04/20/24 Range/Units 13:12 14:30 WBC (3.98-10.04) x10^3/uL RBC (3.93-5.22) x10^6/uL Hgb (11.2-15.7) g/dL Hct (34.1-44.9) % MCV (79.4-94.8) fL MCH (25.6-32.2) pg MCHC (32.2-35.5) g/dL RDW (11.7-14.4) % Plt Count (182-369) x10^3/uL MPV (9.4-12.3) fL Gran % (34.0-71.1) % Immature Gran % (Auto) (0.001-0.429) % Nucleat RBC Rel Count (0.00-0.2) % Eos # (Auto) (0.04-0.36) x10^3/uL Immature Gran # (Auto) (0.001-0.031) x10^3u/L Absolute Lymphs (auto) (1.18-3.74) x10^3/uL Absolute Monos (auto) (0.24-0.86) x10^3/uL Absolute Nucleated RBC (0.00-0.012) x10^3u/L Lymphocytes % (19.3-51.7) % Monocytes % (4.7-12.5) % Eosinophils % (0.7-5.8) % Basophils % (0.1-1.2) % Absolute Granulocytes (1.56-6.13) x10^3/uL Basophils # (0.01-0.08) x10^3/uL PT (9.4-12.5) SECONDS INR (0.8-3.0) APTT (25.1-36.5) SECONDS pO2/FiO2 Ratio % VBG pH (7.32-7.42) VBG pCO2 at Pat Temp (42-55) mm/Hg VBG pO2 at Pat Temp (25-40) mm/Hg VBG HCO3 (22-28) meq/L VBG O2 Sat (Ken) (95-100) VBG Base Excess (-2.0-2.0) VBG Hemoglobin VBG Carboxyhemoglobin (0.0-6.9) % T HGB POC Potassium (3.5-5.1) Sodium (135-145) mmol/L Potassium (3.5-5.1) mmol/L Chloride (98-107) mmol/L Carbon Dioxide (22-30) mmol/L Anion Gap (5-15) MEQ/L BUN (7-17) mg/dL Creatinine (0.52-1.04) mg/dL Estimated GFR ML/MIN Glucose (74-106) mg/dL Lactic Acid 0.7 (0.4-2.0) Calcium (8.4-10.2) mg/dL Magnesium (1.6-2.3) mg/dL Total Bilirubin (0.2-1.3) mg/dL AST (14-36) U/L ALT (0-35) U/L Alkaline Phosphatase (38-126) U/L Troponin I 0.079 H* (0.000-0.033) ng/mL Serum Total Protein (6.3-8.2) g/dL Albumin (3.5-5.0) g/dL TSH 3rd Generation (0.470-4.680) mIU/L Urine Color (Yellow) Urine Appearance (Clear) Urine pH (4.6-8.0) Ur Specific Dyer (1.005-1.030) Urine Protein (Negative) Urine Glucose (UA) (Negative) mg/dL Urine Ketones (Negative) Urine Blood (Negative) Urine Nitrite (Negative) Urine Bilirubin (Negative) Urine Urobilinogen (0.2) mg/dL Ur Leukocyte Esterase (Negative) U Hyaline Cast (Auto) (0-2) /LPF Urine Microscopic RBC (0-5) /HPF Urine Microscopic WBC (0-5) /HPF Ur Epithelial Cells (None Seen) /HPF Urine Bacteria (None Seen) /HPF Urine Culture Reflexed (NO) Urine Opiates Level (NEGATIVE) Ur Methadone (NEGATIVE) Urine Barbiturates (NEGATIVE) Ur Phencyclidine (PCP) (NEGATIVE) Urine Amphetamine (NEGATIVE) U Benzodiazepine Level (NEGATIVE) Urine Cocaine (NEGATIVE) Urine Marijuana (THC) (NEGATIVE) Ethyl Alcohol (0-10) mg/dL Influenza Type A Ag (NEGATIVE) Influenza Type B Ag (NEGATIVE) RSV (PCR) (NEGATIVE) SARS-CoV-2 (PCR) (NEGATIVE) Slides for Path Review - Radiology Impressions Radiology Exams & Impressions: Radiology Procedures Category Date Time Status CHEST 1 VIEW (PORTABLE) Stat Exams 04/20/24 11:[address] ANGIOGRAPHY NECK [CT] Stat Exams 04/20/24 10:31 Completed CTA HEAD W AND/OR WO CONTRAST [CT] Stat Exams 04/20/24 10:31 Completed HEAD WITHOUT CONTRAST [CT] Stat Exams 04/20/24 09:51 Completed HIP CONSTANZA (4V) INCL PELV IF DONE Stat Exams 04/20/24 09:57 Completed PELVIS WITHOUT CONTRAST [CT] Stat Exams 04/20/24 09:57 Completed Assessment/Plan (1) Sepsis Current Visit: Yes Status: Acute Assessment & Plan: -Unknown etiology -meets criteria with elevated RR, febrile, leukocytosis with WBC at 13.9, lactic acidosis -Reviewed CT of head and pelvis negative. CXR with no focal consolidation per ED read. CTA head and neck unremarkable. Hip/pelvis xray with no acute findings -Zosyn given in ED, will continue with vanc/zosyn -supplemental oxygen with goal spo2 > 92% -Lactic acid reviewed, now wnl after 2L fluid bolus - continue IVF -ABG if significant lethargy or hypoxia -Strict I&O -Target map > 65mmHg -blood and urine cultures pending -Respiratory viral panel negative -UA negative - follow culture -obtain ct c/a (2) Hypomagnesemia Current Visit: Yes Status: Acute Assessment & Plan: -Mag level reviewed at 1.5- will replenish per protocol and recheck in the a.m. Code(s): E83.42 - HYPOMAGNESEMIA (3) Leukocytosis Current Visit: Yes Status: Acute Assessment & Plan: -see sepsis Code(s): D72.829 - ELEVATED WHITE BLOOD CELL COUNT, UNSPECIFIED (4) Metabolic acidosis Current Visit: Yes Status: Acute Assessment & Plan: -secondary to infection -Monitor CMP closely -IVF Code(s): E87.20 - ACIDOSIS, UNSPECIFIED (5) Elevated troponin Current Visit: Yes Status: Acute Assessment & Plan: -EKG Sinus Tach (123), Other (qtcb 485, not suggestive of acute ischemia) interpreted by ED -Trops uptrending 0.079>0.012 -trend -EKG repeat in a.m. -most likely secondary to sepsis -denies chest pain Code(s): R79.89 - OTHER SPECIFIED ABNORMAL FINDINGS OF BLOOD CHEMISTRY (6) Encephalopathy Current Visit: Yes Status: Acute Qualifiers: Encephalopathy type: unspecified encephalopathy Qualified Code(s): G93.40 - Encephalopathy, unspecified Assessment & Plan: -? infection -see plan for sepsis -CTH, CTA head neck with no acute findings -consider MRI when available if persistent -blood glucose level reviewed and WNL Code(s): G93.40 - ENCEPHALOPATHY, UNSPECIFIED (7) Fall Current Visit: Yes Status: Acute Assessment & Plan: CT of head and pelvis negative. CXR with no focal consolidation per ED read. CTA head and neck unremarkable. Hip/pelvis xray with no acute findings -PT/OT Code(s): W19.XXXA - UNSPECIFIED FALL, INITIAL ENCOUNTER (8) HTN (hypertension) Current Visit: Yes Status: Acute Assessment & Plan: -continue home meds Code(s): I10 - ESSENTIAL (PRIMARY) HYPERTENSION (9) Anxiety and depression Current Visit: Yes Status: Acute Assessment & Plan: -continue amitriptyline Code(s): F41.9 - ANXIETY DISORDER, UNSPECIFIED; F32.A - DEPRESSION, UNSPECIFIED (10) IBS (irritable bowel syndrome) Current Visit: Yes Status: Acute Assessment & Plan: -No flare, does not appear to take home meds (11) Abnormal thyroid stimulating hormone (TSH) level Current Visit: Yes Status: Acute Assessment & Plan: -TSH level reviewed and low at 0.388- no h/o thyroid issues- will refer to endocrinology for eval on discharge Code(s): R79.89 - OTHER SPECIFIED ABNORMAL FINDINGS OF BLOOD CHEMISTRY Telemedicine Encounter - Telemedicine Encounter Telemedicine Encounter: "The entirety of this encounter was performed via Telemedicine" This visit was performed using real-time audio and video connection between my location and thepatients locationwith the assistance of a surrogateat the patients location. Written or verbal consent was obtained from the patient/guardian to perform this [facility]. Any patient questions regarding the telemedicine interaction were answered.
[2024-04-20] MEDS ORDERED: Zofran 4 MG/2 ML VIAL IV PRN (16:29)
[2024-04-20] MEDS: PHARMACY DOSING REQUIRED: VANCOMYCIN IV STA (17:29)
[2024-04-20] MEDS ORDERED: MAGNESIUM SULF 2 G/50 ML BAG 2 GM/50 ML PIGGYBACK IV ONE (17:37)
[2024-04-20] MEDS: MAGNESIUM SULF 2 G/50 ML BAG 2 GM/50 ML PIGGYBACK IV ONE (18:03)
[2024-04-20] MEDS: PIPERACILLIN/TAZOBACTAM 3.375 GM in Sodium Chloride 100ML MINI-BAG PLUS 100 ML IV SCH (18:12)
[2024-04-20] MEDS: VANCOMYCIN 1 GRAM/200 ML BAG 1 GM/200 ML PIGGYBACK IV ONE (18:16)
--- NOTE | 2024-04-20 20:10 | XRAY ---
Indication: Fever. Comparison: May 05, 2022 Portable chest again demonstrates minimal right infrahilar and left lung base subsegmental atelectasis/scarring. Remaining lungs clear. Heart not enlarged. Bony thorax intact again with osteopenia, degenerative changes, scoliosis, and old left humeral neck fracture. Impression: Continued nonacute chest with chronic features.
[2024-04-20] MEDS ORDERED: Toprol Xl 50 MG PO ONE (20:12)
[2024-04-20] MEDS ORDERED: TYLENOL 325 MG ONE (20:12)
[2024-04-20] MEDS: Toprol Xl 50 MG PO SCH (20:13)
[2024-04-20] MEDS: TYLENOL 325 MG PO PRN (20:13)
[2024-04-20 21:04] VITALS: O2SAT 93
--- NOTE | 2024-04-20 21:36 | XRAY ---
CLINICAL HISTORY: sepsis unknown etiology COMPARISON: None. TECHNIQUE: Contiguous axial CT images of the chest were acquired without administration of intravenous contrast. Coronal and sagittal reconstructions were obtained. One of the following dose reduction techniques were utilized for this exam: Automated exposure control, adjustment of the mA and/or kV according to patient size, use of iterative reconstruction. FINDINGS: Lungs: A calcified pulmonary nodule is seen at the posterior segment of the right upper lung lobe measuring about 1.1 cm. Middle lobar, lingular, and bilateral basal pulmonary atelectatic bands. No pulmonary masses are identified. No evidence of interstitial lung disease or emphysema. Mild right basal pleural thickening/reaction. Mediastinum: The mediastinum is normal in size and contour. No mediastinal mass or abnormal lymphadenopathy. Pretracheal calcific lymph nodes, likely old granulomatous disease. The heart size is within normal limits. Atherosclerotic calcification of the aorta and coronary arteries is seen. Hilar Structures: The hilar structures appear normal without enlargement or abnormality. Trachea and Main Bronchi: The trachea and main bronchi are patent without evidence of obstruction or abnormality. Chest Wall: The chest wall is unremarkable with no evidence of soft tissue or bony abnormalities. Calcific foci are seen in bilateral breasts. Upper Abdomen: Visualized spleen shows multiple calcific foci, most likely corresponding to granulomas. Visualized portions of the liver, adrenal glands, and kidneys are unremarkable. Bones: Visualized osseous structures are normal, with no evidence of fracture or lytic/sclerotic lesions Marked scoliotic deformity of the spine. Spondylodegenrative changes . IMPRESSION: 1. Mild right basal pleural thickening/reaction. 2. Calcified pulmonary nodule is seen in the right lung lobe, most likely corresponding to granuloma. 3. Middle lobar, lingular, and bilateral basal pulmonary atelectatic bands. 4. Pretracheal calcific lymph nodes, likely old granulomatous disease. 5. Atherosclerotic calcification of the aorta and coronary arteries is seen. Electronically Signed by: Park Young MD. (04/20/2024 21:32:05 EST)
--- NOTE | 2024-04-20 21:44 | XRAY ---
CLINICAL HISTORY: sepsis unknown etiology COMPARISON: No prior studies available for comparison. TECHNIQUE: Non-contrast CT of the abdomen and pelvis was performed, with the following protocol: axial images, and reconstructed coronal and sagittal images. No intravenous contrast was administered. One of the following dose reduction techniques was utilized for this exam: Automated exposure control, adjustment of the mA and/or kV according to patient size, and use of iterative reconstruction. FINDINGS: Abdomen: There is a focal segment of the distal abdominal aorta which appears dilated with maximum diameter of 38 mm with calcification with suspicious surrounding fat stranding. A postcontrast study is suggested for further evaluation. Diffuse atherosclerotic calcifications are seen in the abdominal aorta. Liver: Normal in size, shape, and density measuring 14cm. No focal lesions, cysts, or masses were identified. Gallbladder and Biliary System: The gallbladder is normal in size and shape. No wall thickening, pericholecystic fluid, or gallstones were identified. Pancreas: Pancreas appear normal. No pancreatic masses or calcifications were noted. Spleen: Normal in size, shape, and density. Multiple tiny foci are seen in the spleen signifying old healed granulomas. Kidneys and Adrenal Glands: Both kidneys are normal in size, shape, and position. Cortical thickness is within normal limits. Contrast is seen in the renal collecting system bilaterally likely from prior postcontrast study. No definite renal calculi or hydronephrosis. Adrenal glands are unremarkable. Appendix: Not clearly delineated. Pelvis: Urinary Bladder: It appears empty with fernández's bulb in place. Uterus: Not visualized Bowel: The visualized bowel loops are normal in caliber and appearance. No evidence of bowel obstruction or wall thickening. Bones and Soft Tissues: Marked scoliotic deformity of spine with convexity towards the right side and marked degenerative changes with no definite evidence of osseous lesion or fracture. Chest findings are discussed in CT chest. IMPRESSION: 1. There is a focal segment of the distal abdominal aorta which appears dilated with a maximum diameter of 38 mm with calcification with suspicious surrounding fat stranding. CTA abdomen is advised for further evaluation. 2. Old healed calcified splenic granulomas. 3. Marked scoliotic deformity of spine with convexity towards the right side and marked degenerative changes with no definite evidence of osseous lesion or fracture. Electronically Signed by: Park Young MD. (04/20/2024 21:40:58 EST)
[2024-04-20] MEDS ORDERED: AMITRIPTYLINE HCL 100 MG PO SCH (22:00)
[2024-04-21 00:23] VITALS: BP 156/92; PULSE 110; RESP 17; TEMP 97.5
[2024-04-21] MEDS ORDERED: TYLENOL 325 MG ONE (01:48)
[2024-04-21] MEDS ORDERED: NON-FORMULARY ITEM (Cholecalciferol (Vitamin D3) [Vitamin D3] 1,000 UNIT Capsule) PO SCH (10:00)
[2024-04-21] MEDS ORDERED: CALCIUM CARBONATE 500 MG PO SCH (10:00)
[2024-04-21] MEDS ORDERED: ECOTRIN 81 MG PO SCH (10:00)
--- NOTE | 2024-04-21 10:29 | PCM.DS ---
Discharge Summary Date of Admission: 04/20/24 15:37 Date of Discharge: 04/21/24 Admitting Physician: BABAR GUERRERO MD Primary Care Provider: ZHANGYOUSUF AKIN Allergies Allergies carbamazepine [From Tegretol] Allergy (Verified 04/20/24 09:55) pt can't remember what this med does to her, but also and adverse rx diazepam [From Valium] Adverse Reaction (Verified 04/20/24 09:55) severe confusion hydrocodone Adverse Reaction (Verified 04/20/24 09:55) severe confusion Hospital Summary - Hospital Course Hospital Course: Ms. Montiel is a 73 year old female with a pmhx of angina, HTN, IBS, OP, scoliosis, anxiety, and depression who presented to ED 04/20/24 via EMS after family noted a change in patients mental status. Patient was also noted in ED with slurred speech and combative behaviors. Per family report patient was sick with a respiratory virus a few weeks ago. Patient is A&O x 4 during my exam. She endorses shortness of breath and mild dizziness with ambulation. She is still having mild difficulty finding words. She reports her was sick this week with a respiratory illness and fell at home, she tried to help him up and then fell herself. She denies LOC or trauma during that fall. She does complain of right hip and back pain which is chronic for her with her h/o OP and scoliosis but exacerbated by this recent fall. She sees Dr. Mason pain management OP. She denies recent fevers, nausea, vomiting, abdominal pain, dysuria, cough, congestion, open wounds, dizziness, or headaches. Upon arrival to ED patient febrile with temp at 103.3, tachycardic with HR at 132, and tachypneic with RR at 22. CT of head and pelvis negative. CXR with no focal consolidation per ED read. CTA head and neck unremarkable. Hip/pelvis xray with no acute findings. Initial lab findings remarkable for leukocytosis with WBC at 13.9, thrombocytosis with plt at 503, Co2 at 19, anion gap at 21.6, lactic acid 0.7<4.8, mag level at 1.5, trops 0.079 >0.012. UA unremarkable. UDS negative. Respiratory viral panel negative. Patient given 2L fluid bolus and zosyn in ED as well as Haldol and acetaminophen with noted improvement in mentation, afebrile, and no longer with slurred speech. Admit patient for sepsis of unknown etiology. Plan broad spectrum antibiotics with vanc and zosyn. Transfer requested by ED department for MRI due to encephalopathy. [facility] accepted and patient transferred. Discharge Note Latest Assessment & Plan (1) Sepsis Current Visit: Yes Status: Acute Assessment & Plan: -Unknown etiology -meets criteria with elevated RR, febrile, leukocytosis with WBC at 13.9, lactic acidosis -Reviewed CT of head and pelvis negative. CXR with no focal consolidation per ED read. CTA head and neck unremarkable. Hip/pelvis xray with no acute findings -Zosyn given in ED, will continue with vanc/zosyn -supplemental oxygen with goal spo2 > 92% -Lactic acid reviewed, now wnl after 2L fluid bolus - continue IVF -ABG if significant lethargy or hypoxia -Strict I&O -Target map > 65mmHg -blood and urine cultures pending -Respiratory viral panel negative -UA negative - follow culture -obtain ct c/a (2) Hypomagnesemia Current Visit: Yes Status: Acute Assessment & Plan: -Mag level reviewed at 1.5- will replenish per protocol and recheck in the a.m. Code(s): E83.42 - HYPOMAGNESEMIA (3) Leukocytosis Current Visit: Yes Status: Acute Assessment & Plan: -see sepsis Code(s): D72.829 - ELEVATED WHITE BLOOD CELL COUNT, UNSPECIFIED (4) Metabolic acidosis Current Visit: Yes Status: Acute Assessment & Plan: -secondary to infection -Monitor CMP closely -IVF Code(s): E87.20 - ACIDOSIS, UNSPECIFIED (5) Elevated troponin Current Visit: Yes Status: Acute Assessment & Plan: -EKG Sinus Tach (123), Other (qtcb 485, not suggestive of acute ischemia) interpreted by ED -Trops uptrending 0.079>0.012 -trend -EKG repeat in a.m. -most likely secondary to sepsis -denies chest pain Code(s): R79.89 - OTHER SPECIFIED ABNORMAL FINDINGS OF BLOOD CHEMISTRY (6) Encephalopathy Current Visit: Yes Status: Acute Qualifiers: Encephalopathy type: unspecified encephalopathy Qualified Code(s): G93.40 - Encephalopathy, unspecified Assessment & Plan: -? infection -see plan for sepsis -CTH, CTA head neck with no acute findings -consider MRI when available if persistent -blood glucose level reviewed and WNL Code(s): G93.40 - ENCEPHALOPATHY, UNSPECIFIED (7) Fall Current Visit: Yes Status: Acute Assessment & Plan: CT of head and pelvis negative. CXR with no focal consolidation per ED read. CTA head and neck unremarkable. Hip/pelvis xray with no acute findings -PT/OT Code(s): W19.XXXA - UNSPECIFIED FALL, INITIAL ENCOUNTER (8) HTN (hypertension) Current Visit: Yes Status: Acute Assessment & Plan: -continue home meds Code(s): I10 - ESSENTIAL (PRIMARY) HYPERTENSION (9) Anxiety and depression Current Visit: Yes Status: Acute Assessment & Plan: -continue amitriptyline Code(s): F41.9 - ANXIETY DISORDER, UNSPECIFIED; F32.A - DEPRESSION, UNSPECIFIED (10) IBS (irritable bowel syndrome) Current Visit: Yes Status: Acute Assessment & Plan: -No flare, does not appear to take home meds (11) Abnormal thyroid stimulating hormone (TSH) level Current Visit: Yes Status: Acute Assessment & Plan: -TSH level reviewed and low at 0.388- no h/o thyroid issues- will refer to endocrinology for eval on discharge Code(s): R79.89 - OTHER SPECIFIED ABNORMAL FINDINGS OF BLOOD CHEMISTRY I spent 35 minutes [id number] with the patient on the day of discharge performing discharge exam, discussing hospital stay and discharge instructions with patient and caregivers, preparation of discharge records, prescriptions & referral forms and addressing any questions/concerns the patient had as documented above. - Vitals & Intake/Output Vital Signs: Vital Signs Temperature 97.5 F 04/21/24 00:00 Pulse Rate 110 H 04/21/24 00:00 Respiratory Rate 17 04/21/24 00:00 Blood Pressure 156/92 04/21/24 00:00 O2 Sat by Pulse Oximetry 93 L 04/21/24 00:14 Intake & Output: Intake & Output 04/18/24 04/19/24 04/20/24 04/21/24 11:59 11:59 11:59 11:59 Intake Total 3214 Output Total 2000 Balance 1214 Weight 55.8 kg 56 kg - Lab Result Diagrams: 04/20/24 11:08 04/20/24 11:08 Lab Results-Last 24 Hrs: Lab Results-Last 24 Hours 04/20/24 04/20/24 04/20/24 Range/Units 10:50 10:51 11:08 WBC 13.9 H (3.98-10.04) x10^3/uL RBC 4.04 (3.93-5.22) x10^6/uL Hgb 13.0 (11.2-15.7) g/dL Hct 38.2 (34.1-44.9) % MCV 94.6 (79.4-94.8) fL MCH 32.2 (25.6-32.2) pg MCHC 34.0 (32.2-35.5) g/dL RDW 12.1 (11.7-14.4) % Plt Count 503 H (182-369) x10^3/uL MPV 8.7 L (9.4-12.3) fL Gran % 76.1 H (34.0-71.1) % Immature Gran % (Auto) 0.5 H (0.001-0.429) % Nucleat RBC Rel Count 0.0 (0.00-0.2) % Eos # (Auto) 0.01 L (0.04-0.36) x10^3/uL Immature Gran # (Auto) 0.07 H (0.001-0.031) x10^3u/L Absolute Lymphs (auto) 1.44 (1.18-3.74) x10^3/uL Absolute Monos (auto) 1.75 H (0.24-0.86) x10^3/uL Absolute Nucleated RBC 0.00 (0.00-0.012) x10^3u/L Lymphocytes % 10.3 L (19.3-51.7) % Monocytes % 12.6 H (4.7-12.5) % Eosinophils % 0.1 L (0.7-5.8) % Basophils % 0.4 (0.1-1.2) % Absolute Granulocytes 10.61 H (1.56-6.13) x10^3/uL Basophils # 0.05 (0.01-0.08) x10^3/uL ESR (0-20) mm/hr PT (9.4-12.5) SECONDS INR (0.8-3.0) APTT (25.1-36.5) SECONDS pO2/FiO2 Ratio % VBG pH (7.32-7.42) VBG pCO2 at Pat Temp (42-55) mm/Hg VBG pO2 at Pat Temp (25-40) mm/Hg VBG HCO3 (22-28) meq/L VBG O2 Sat (Ken) (95-100) VBG Base Excess (-2.0-2.0) VBG Hemoglobin VBG Carboxyhemoglobin (0.0-6.9) % T HGB POC Potassium (3.5-5.1) Sodium (135-145) mmol/L Potassium (3.5-5.1) mmol/L Chloride (98-107) mmol/L Carbon Dioxide (22-30) mmol/L Anion Gap (5-15) MEQ/L BUN (7-17) mg/dL Creatinine (0.52-1.04) mg/dL Estimated GFR ML/MIN Glucose (74-106) mg/dL Lactic Acid (0.4-2.0) Calcium (8.4-10.2) mg/dL Magnesium (1.6-2.3) mg/dL Total Bilirubin (0.2-1.3) mg/dL AST (14-36) U/L ALT (0-35) U/L Alkaline Phosphatase (38-126) U/L Troponin I (0.000-0.033) ng/mL Serum Total Protein (6.3-8.2) g/dL Albumin (3.5-5.0) g/dL Procalcitonin (0.030-0.080) ng/mL TSH 3rd Generation (0.470-4.680) mIU/L Urine Color Yellow (Yellow) Urine Appearance Clear (Clear) Urine pH 5.5 (4.6-8.0) Ur Specific [place] 1.020 (1.005-1.030) Urine Protein 30 (Negative) Urine Glucose (UA) Negative (Negative) mg/dL Urine Ketones 40 A (Negative) Urine Blood Trace (Negative) Urine Nitrite Negative (Negative) Urine Bilirubin Negative (Negative) Urine Urobilinogen 0.2 (0.2) mg/dL Ur Leukocyte Esterase Small A (Negative) U Hyaline Cast (Auto) NONE SEEN (0-2) /LPF Urine Microscopic RBC 3-5 (0-5) /HPF Urine Microscopic WBC 0-2 (0-5) /HPF Ur Epithelial Cells None Seen (None Seen) /HPF Urine Bacteria None Seen (None Seen) /HPF Urine Culture Reflexed YES (NO) Urine Opiates Level NEGATIVE (NEGATIVE) Ur Methadone NEGATIVE (NEGATIVE) Urine Barbiturates NEGATIVE (NEGATIVE) Ur Phencyclidine (PCP) NEGATIVE (NEGATIVE) Urine Amphetamine NEGATIVE (NEGATIVE) U Benzodiazepine Level NEGATIVE (NEGATIVE) Urine Cocaine NEGATIVE (NEGATIVE) Urine Marijuana (THC) NEGATIVE (NEGATIVE) Ethyl Alcohol (0-10) mg/dL Influenza Type A Ag (NEGATIVE) Influenza Type B Ag (NEGATIVE) RSV (PCR) (NEGATIVE) SARS-CoV-2 (PCR) (NEGATIVE) Slides for Path Review YES 04/20/24 04/20/24 04/20/24 Range/Units 11:08 11:08 11:08 WBC (3.98-10.04) x10^3/uL RBC (3.93-5.22) x10^6/uL Hgb (11.2-15.7) g/dL Hct (34.1-44.9) % MCV (79.4-94.8) fL MCH (25.6-32.2) pg MCHC (32.2-35.5) g/dL RDW (11.7-14.4) % Plt Count (182-369) x10^3/uL MPV (9.4-12.3) fL Gran % (34.0-71.1) % Immature Gran % (Auto) (0.001-0.429) % Nucleat RBC Rel Count (0.00-0.2) % Eos # (Auto) (0.04-0.36) x10^3/uL Immature Gran # (Auto) (0.001-0.031) x10^3u/L Absolute Lymphs (auto) (1.18-3.74) x10^3/uL Absolute Monos (auto) (0.24-0.86) x10^3/uL Absolute Nucleated RBC (0.00-0.012) x10^3u/L Lymphocytes % (19.3-51.7) % Monocytes % (4.7-12.5) % Eosinophils % (0.7-5.8) % Basophils % (0.1-1.2) % Absolute Granulocytes (1.56-6.13) x10^3/uL Basophils # (0.01-0.08) x10^3/uL ESR (0-20) mm/hr PT 10.9 (9.4-12.5) SECONDS INR 1.00 (0.8-3.0) APTT 25.3 (25.1-36.5) SECONDS pO2/FiO2 Ratio % VBG pH (7.32-7.42) VBG pCO2 at Pat Temp (42-55) mm/Hg VBG pO2 at Pat Temp (25-40) mm/Hg VBG HCO3 (22-28) meq/L VBG O2 Sat (Ken) (95-100) VBG Base Excess (-2.0-2.0) VBG Hemoglobin VBG Carboxyhemoglobin (0.0-6.9) % T HGB POC Potassium (3.5-5.1) Sodium 137 (135-145) mmol/L Potassium 3.7 (3.5-5.1) mmol/L Chloride 101 (98-107) mmol/L Carbon Dioxide 19 L (22-30) mmol/L Anion Gap 21.6 H (5-15) MEQ/L BUN 26 H (7-17) mg/dL Creatinine 0.90 (0.52-1.04) mg/dL Estimated GFR 67.1 ML/MIN Glucose 121 H (74-106) mg/dL Lactic Acid (0.4-2.0) Calcium 9.6 (8.4-10.2) mg/dL Magnesium 1.5 L (1.6-2.3) mg/dL Total Bilirubin 1.00 (0.2-1.3) mg/dL AST 37 H (14-36) U/L ALT 27 (0-35) U/L Alkaline Phosphatase 82 (38-126) U/L Troponin I 0.012 (0.000-0.033) ng/mL Serum Total Protein 8.4 H (6.3-8.2) g/dL Albumin 4.4 (3.5-5.0) g/dL Procalcitonin (0.030-0.080) ng/mL TSH 3rd Generation 0.388 L (0.470-4.680) mIU/L Urine Color (Yellow) Urine Appearance (Clear) Urine pH (4.6-8.0) Ur Specific [place] (1.005-1.030) Urine Protein (Negative) Urine Glucose (UA) (Negative) mg/dL Urine Ketones (Negative) Urine Blood (Negative) Urine Nitrite (Negative) Urine Bilirubin (Negative) Urine Urobilinogen (0.2) mg/dL Ur Leukocyte Esterase (Negative) U Hyaline Cast (Auto) (0-2) /LPF Urine Microscopic RBC (0-5) /HPF Urine Microscopic WBC (0-5) /HPF Ur Epithelial Cells (None Seen) /HPF Urine Bacteria (None Seen) /HPF Urine Culture Reflexed (NO) Urine Opiates Level (NEGATIVE) Ur Methadone (NEGATIVE) Urine Barbiturates (NEGATIVE) Ur Phencyclidine (PCP) (NEGATIVE) Urine Amphetamine (NEGATIVE) U Benzodiazepine Level (NEGATIVE) Urine Cocaine (NEGATIVE) Urine Marijuana (THC) (NEGATIVE) Ethyl Alcohol < 10 (0-10) mg/dL Influenza Type A Ag (NEGATIVE) Influenza Type B Ag (NEGATIVE) RSV (PCR) (NEGATIVE) SARS-CoV-2 (PCR) (NEGATIVE) Slides for Path Review 04/20/24 04/20/24 04/20/24 Range/Units 11:10 11:20 11:46 WBC (3.98-10.04) x10^3/uL RBC (3.93-5.22) x10^6/uL Hgb (11.2-15.7) g/dL Hct (34.1-44.9) % MCV (79.4-94.8) fL MCH (25.6-32.2) pg MCHC (32.2-35.5) g/dL RDW (11.7-14.4) % Plt Count (182-369) x10^3/uL MPV (9.4-12.3) fL Gran % (34.0-71.1) % Immature Gran % (Auto) (0.001-0.429) % Nucleat RBC Rel Count (0.00-0.2) % Eos # (Auto) (0.04-0.36) x10^3/uL Immature Gran # (Auto) (0.001-0.031) x10^3u/L Absolute Lymphs (auto) (1.18-3.74) x10^3/uL Absolute Monos (auto) (0.24-0.86) x10^3/uL Absolute Nucleated RBC (0.00-0.012) x10^3u/L Lymphocytes % (19.3-51.7) % Monocytes % (4.7-12.5) % Eosinophils % (0.7-5.8) % Basophils % (0.1-1.2) % Absolute Granulocytes (1.56-6.13) x10^3/uL Basophils # (0.01-0.08) x10^3/uL ESR (0-20) mm/hr PT (9.4-12.5) SECONDS INR (0.8-3.0) APTT (25.1-36.5) SECONDS pO2/FiO2 Ratio 21.0 % VBG pH 7.55 H* (7.32-7.42) VBG pCO2 at Pat Temp 25 L (42-55) mm/Hg VBG pO2 at Pat Temp 32 (25-40) mm/Hg VBG HCO3 21.9 L (22-28) meq/L VBG O2 Sat (Ken) 62.2 L (95-100) VBG Base Excess 1.0 (-2.0-2.0) VBG Hemoglobin 13.7 VBG Carboxyhemoglobin 3.4 (0.0-6.9) % T HGB POC Potassium 3.7 (3.5-5.1) Sodium (135-145) mmol/L Potassium (3.5-5.1) mmol/L Chloride (98-107) mmol/L Carbon Dioxide (22-30) mmol/L Anion Gap (5-15) MEQ/L BUN (7-17) mg/dL Creatinine (0.52-1.04) mg/dL Estimated GFR ML/MIN Glucose (74-106) mg/dL Lactic Acid 4.8 H (0.4-2.0) Calcium (8.4-10.2) mg/dL Magnesium (1.6-2.3) mg/dL Total Bilirubin (0.2-1.3) mg/dL AST (14-36) U/L ALT (0-35) U/L Alkaline Phosphatase (38-126) U/L Troponin I (0.000-0.033) ng/mL Serum Total Protein (6.3-8.2) g/dL Albumin (3.5-5.0) g/dL Procalcitonin (0.030-0.080) ng/mL TSH 3rd Generation (0.470-4.680) mIU/L Urine Color (Yellow) Urine Appearance (Clear) Urine pH (4.6-8.0) Ur Specific [place] (1.005-1.030) Urine Protein (Negative) Urine Glucose (UA) (Negative) mg/dL Urine Ketones (Negative) Urine Blood (Negative) Urine Nitrite (Negative) Urine Bilirubin (Negative) Urine Urobilinogen (0.2) mg/dL Ur Leukocyte Esterase (Negative) U Hyaline Cast (Auto) (0-2) /LPF Urine Microscopic RBC (0-5) /HPF Urine Microscopic WBC (0-5) /HPF Ur Epithelial Cells (None Seen) /HPF Urine Bacteria (None Seen) /HPF Urine Culture Reflexed (NO) Urine Opiates Level (NEGATIVE) Ur Methadone (NEGATIVE) Urine Barbiturates (NEGATIVE) Ur Phencyclidine (PCP) (NEGATIVE) Urine Amphetamine (NEGATIVE) U Benzodiazepine Level (NEGATIVE) Urine Cocaine (NEGATIVE) Urine Marijuana (THC) (NEGATIVE) Ethyl Alcohol (0-10) mg/dL Influenza Type A Ag NEGATIVE (NEGATIVE) Influenza Type B Ag NEGATIVE (NEGATIVE) RSV (PCR) NEGATIVE (NEGATIVE) SARS-CoV-2 (PCR) NEGATIVE (NEGATIVE) Slides for Path Review 04/20/24 04/20/24 04/20/24 Range/Units 13:12 14:30 14:30 WBC (3.98-10.04) x10^3/uL RBC (3.93-5.22) x10^6/uL Hgb (11.2-15.7) g/dL Hct (34.1-44.9) % MCV (79.4-94.8) fL MCH (25.6-32.2) pg MCHC (32.2-35.5) g/dL RDW (11.7-14.4) % Plt Count (182-369) x10^3/uL MPV (9.4-12.3) fL Gran % (34.0-71.1) % Immature Gran % (Auto) (0.001-0.429) % Nucleat RBC Rel Count (0.00-0.2) % Eos # (Auto) (0.04-0.36) x10^3/uL Immature Gran # (Auto) (0.001-0.031) x10^3u/L Absolute Lymphs (auto) (1.18-3.74) x10^3/uL Absolute Monos (auto) (0.24-0.86) x10^3/uL Absolute Nucleated RBC (0.00-0.012) x10^3u/L Lymphocytes % (19.3-51.7) % Monocytes % (4.7-12.5) % Eosinophils % (0.7-5.8) % Basophils % (0.1-1.2) % Absolute Granulocytes (1.56-6.13) x10^3/uL Basophils # (0.01-0.08) x10^3/uL ESR (0-20) mm/hr PT (9.4-12.5) SECONDS INR (0.8-3.0) APTT (25.1-36.5) SECONDS pO2/FiO2 Ratio % VBG pH (7.32-7.42) VBG pCO2 at Pat Temp (42-55) mm/Hg VBG pO2 at Pat Temp (25-40) mm/Hg VBG HCO3 (22-28) meq/L VBG O2 Sat (Ken) (95-100) VBG Base Excess (-2.0-2.0) VBG Hemoglobin VBG Carboxyhemoglobin (0.0-6.9) % T HGB POC Potassium (3.5-5.1) Sodium (135-145) mmol/L Potassium (3.5-5.1) mmol/L Chloride (98-107) mmol/L Carbon Dioxide (22-30) mmol/L Anion Gap (5-15) MEQ/L BUN (7-17) mg/dL Creatinine (0.52-1.04) mg/dL Estimated GFR ML/MIN Glucose (74-106) mg/dL Lactic Acid 0.7 (0.4-2.0) Calcium (8.4-10.2) mg/dL Magnesium (1.6-2.3) mg/dL Total Bilirubin (0.2-1.3) mg/dL AST (14-36) U/L ALT (0-35) U/L Alkaline Phosphatase (38-126) U/L Troponin I 0.079 H* (0.000-0.033) ng/mL Serum Total Protein (6.3-8.2) g/dL Albumin (3.5-5.0) g/dL Procalcitonin 0.442 H (0.030-0.080) ng/mL TSH 3rd Generation (0.470-4.680) mIU/L Urine Color (Yellow) Urine Appearance (Clear) Urine pH (4.6-8.0) Ur Specific [place] (1.005-1.030) Urine Protein (Negative) Urine Glucose (UA) (Negative) mg/dL Urine Ketones (Negative) Urine Blood (Negative) Urine Nitrite (Negative) Urine Bilirubin (Negative) Urine Urobilinogen (0.2) mg/dL Ur Leukocyte Esterase (Negative) U Hyaline Cast (Auto) (0-2) /LPF Urine Microscopic RBC (0-5) /HPF Urine Microscopic WBC (0-5) /HPF Ur Epithelial Cells (None Seen) /HPF Urine Bacteria (None Seen) /HPF Urine Culture Reflexed (NO) Urine Opiates Level (NEGATIVE) Ur Methadone (NEGATIVE) Urine Barbiturates (NEGATIVE) Ur Phencyclidine (PCP) (NEGATIVE) Urine Amphetamine (NEGATIVE) U Benzodiazepine Level (NEGATIVE) Urine Cocaine (NEGATIVE) Urine Marijuana (THC) (NEGATIVE) Ethyl Alcohol (0-10) mg/dL Influenza Type A Ag (NEGATIVE) Influenza Type B Ag (NEGATIVE) RSV (PCR) (NEGATIVE) SARS-CoV-2 (PCR) (NEGATIVE) Slides for Path Review 04/20/24 04/20/24 Range/Units 18:31 18:31 WBC (3.98-10.04) x10^3/uL RBC (3.93-5.22) x10^6/uL Hgb (11.2-15.7) g/dL Hct (34.1-44.9) % MCV (79.4-94.8) fL MCH (25.6-32.2) pg MCHC (32.2-35.5) g/dL RDW (11.7-14.4) % Plt Count (182-369) x10^3/uL MPV (9.4-12.3) fL Gran % (34.0-71.1) % Immature Gran % (Auto) (0.001-0.429) % Nucleat RBC Rel Count (0.00-0.2) % Eos # (Auto) (0.04-0.36) x10^3/uL Immature Gran # (Auto) (0.001-0.031) x10^3u/L Absolute Lymphs (auto) (1.18-3.74) x10^3/uL Absolute Monos (auto) (0.24-0.86) x10^3/uL Absolute Nucleated RBC (0.00-0.012) x10^3u/L Lymphocytes % (19.3-51.7) % Monocytes % (4.7-12.5) % Eosinophils % (0.7-5.8) % Basophils % (0.1-1.2) % Absolute Granulocytes (1.56-6.13) x10^3/uL Basophils # (0.01-0.08) x10^3/uL ESR 61 H (0-20) mm/hr PT (9.4-12.5) SECONDS INR (0.8-3.0) APTT (25.1-36.5) SECONDS pO2/FiO2 Ratio % VBG pH (7.32-7.42) VBG pCO2 at Pat Temp (42-55) mm/Hg VBG pO2 at Pat Temp (25-40) mm/Hg VBG HCO3 (22-28) meq/L VBG O2 Sat (Ken) (95-100) VBG Base Excess (-2.0-2.0) VBG Hemoglobin VBG Carboxyhemoglobin (0.0-6.9) % T HGB POC Potassium (3.5-5.1) Sodium (135-145) mmol/L Potassium (3.5-5.1) mmol/L Chloride (98-107) mmol/L Carbon Dioxide (22-30) mmol/L Anion Gap (5-15) MEQ/L BUN (7-17) mg/dL Creatinine (0.52-1.04) mg/dL Estimated GFR ML/MIN Glucose (74-106) mg/dL Lactic Acid (0.4-2.0) Calcium (8.4-10.2) mg/dL Magnesium (1.6-2.3) mg/dL Total Bilirubin (0.2-1.3) mg/dL AST (14-36) U/L ALT (0-35) U/L Alkaline Phosphatase (38-126) U/L Troponin I 0.078 H* (0.000-0.033) ng/mL Serum Total Protein (6.3-8.2) g/dL Albumin (3.5-5.0) g/dL Procalcitonin (0.030-0.080) ng/mL TSH 3rd Generation (0.470-4.680) mIU/L Urine Color (Yellow) Urine Appearance (Clear) Urine pH (4.6-8.0) Ur Specific [place] (1.005-1.030) Urine Protein (Negative) Urine Glucose (UA) (Negative) mg/dL Urine Ketones (Negative) Urine Blood (Negative) Urine Nitrite (Negative) Urine Bilirubin (Negative) Urine Urobilinogen (0.2) mg/dL Ur Leukocyte Esterase (Negative) U Hyaline Cast (Auto) (0-2) /LPF Urine Microscopic RBC (0-5) /HPF Urine Microscopic WBC (0-5) /HPF Ur Epithelial Cells (None Seen) /HPF Urine Bacteria (None Seen) /HPF Urine Culture Reflexed (NO) Urine Opiates Level (NEGATIVE) Ur Methadone (NEGATIVE) Urine Barbiturates (NEGATIVE) Ur Phencyclidine (PCP) (NEGATIVE) Urine Amphetamine (NEGATIVE) U Benzodiazepine Level (NEGATIVE) Urine Cocaine (NEGATIVE) Urine Marijuana (THC) (NEGATIVE) Ethyl Alcohol (0-10) mg/dL Influenza Type A Ag (NEGATIVE) Influenza Type B Ag (NEGATIVE) RSV (PCR) (NEGATIVE) SARS-CoV-2 (PCR) (NEGATIVE) Slides for Path Review - Radiology Exams Ordered Rad Exams-Entire Visit: Radiology Procedures Category Date Time Status ABDOMEN AND PELVIS W/0 CONTRAS [CT] Stat Exams 04/20/24 16:56 Completed CHEST 1 VIEW (PORTABLE) Stat Exams 04/20/24 11:38 Completed CHEST WITHOUT CONTRAST [CT] Stat Exams 04/20/24 16:[address] ANGIOGRAPHY NECK [CT] Stat Exams 04/20/24 10:31 Completed CTA HEAD W AND/OR WO CONTRAST [CT] Stat Exams 04/20/24 10:31 Completed HEAD WITHOUT CONTRAST [CT] Stat Exams 04/20/24 09:51 Completed HIP CONSTANZA (4V) INCL PELV IF DONE Stat Exams 04/20/24 09:57 Completed PELVIS WITHOUT CONTRAST [CT] Stat Exams 04/20/24 09:57 Completed - Procedures and Test Procedures and Tests throughout Hospitalization: Therapy Orders & Screens 04/21/24 00:13 Oxygen Nasal Cannula 2 lpm Comment: Diagnosis: encephalopathy/sepsis Discharge Exam General Appearance: no apparent distress Neurologic Exam: alert, oriented x 3, cooperative, confusion Eye Exam: PERRL Ears, Nose, Throat Exam: normal ENT inspection Neck Exam: normal inspection Respiratory Exam: normal breath sounds, lungs clear Cardiovascular Exam: regular rate/rhythm, normal heart sounds Gastrointestinal/Abdomen Exam: soft, normal bowel sounds Pelvic Exam: deferred Rectal Exam: deferred Back Exam: normal inspection Extremity Exam: normal inspection Skin Exam: normal color Final Diagnosis/Problem List - Final Discharge Diagnosis/Problem (1) Sepsis Status: Acute (2) Hypomagnesemia Status: Acute Code(s): E83.42 - HYPOMAGNESEMIA (3) Leukocytosis Status: Acute Code(s): D72.829 - ELEVATED WHITE BLOOD CELL COUNT, UNSPECIFIED (4) Metabolic acidosis Status: Acute Code(s): E87.20 - ACIDOSIS, UNSPECIFIED (5) Elevated troponin Status: Acute Code(s): R79.89 - OTHER SPECIFIED ABNORMAL FINDINGS OF BLOOD CHEMISTRY (6) Encephalopathy Status: Acute Code(s): G93.40 - ENCEPHALOPATHY, UNSPECIFIED (7) Fall Status: Acute Code(s): W19.XXXA - UNSPECIFIED FALL, INITIAL ENCOUNTER (8) HTN (hypertension) Status: Acute Code(s): I10 - ESSENTIAL (PRIMARY) HYPERTENSION (9) Anxiety and depression Status: Acute Code(s): F41.9 - ANXIETY DISORDER, UNSPECIFIED; F32.A - DEPRESSION, UNSPECIFIED (10) IBS (irritable bowel syndrome) Status: Acute (11) Abnormal thyroid stimulating hormone (TSH) level Status: Acute Code(s): R79.89 - OTHER SPECIFIED ABNORMAL FINDINGS OF BLOOD CHEMISTRY - Discharge Discharge Date: 04/21/24 Disposition: DC TO [facility] Condition: Stable Prescriptions: Continue Amitriptyline HCl 200 mg PO QHS Cholecalciferol (Vitamin D3) [Vitamin D3] 2,000 unit PO DAILY hydroCHLOROthiazide [Hydrochlorothiazide] 12.5 mg PO DAILY Metoprolol Succinate 50 mg [Toprol Xl 50 MG] 50 mg BID Aspirin [Aspirin EC] 81 mg PO DAILY #30 tablet Calcium Carbonate [Calcium] 500 mg PO DAILY Follow up with: YOUSUF ZHANG MD [Primary Care Provider] -
== END 2024-04-21 02:57 | disposition home or self-care (01) ==
LOC: ED 09:49 → MED SURG 15:37
PROVIDERS: ADMIT Internal Medicine; ATTEND Internal Medicine
DX: A41.9 Sepsis, unspecified organism (principal); E83.42 Hypomagnesemia; D72.829 Elevated white blood cell count, unspecified; E87.20 Acidosis, unspecified; R79.89 Other specified abnormal findings of blood chemistry; G93.40 Encephalopathy, unspecified; W19.XXXA Unspecified fall, initial encounter; I10 Essential (primary) hypertension; F41.9 Anxiety disorder, unspecified; F32.A Depression, unspecified; K58.9 Irritable bowel syndrome, unspecified; Z79.899 Other long term (current) drug therapy
CPT/HCPCS: 0241U; 36415; 70450; 70496; 70498; 71045; 71250; 72192; 73522; 74176; 80053; 80307; 81001; 82077; 82533; 82805; 83605; 83735; 84145; 84443; 84484; 85025; 85610; 85652; 85730; 86140; 87040; 87086; 93005; 93268; 94760; 96372; 96374; 96375; 99285; G0378; Q3014; J1630; A9270-GY; J3370; J3475

== ENCOUNTER 2024-06-10 11:19 | Observation (INO) | payer MEDICARE ==
--- NOTE | 2024-06-10 11:54 | ERPHSYRPT ---
- History of Present Illness Time Seen by Provider: 06/10/24 11:53 Source: patient Exam Limitations: no limitations Physician History: Patient is a 73-year-old female presents to the emergency department via EMS for evaluation of generalized weakness. Patient lives at home with her family. Patient was released from a group home just 1 week ago. Family reports that patient is weak and has been sleeping excessively. Patient denies pain. Symptoms are constant. Symptoms are moderate in intensity. No specific worsening or improving factors. No associated cough. No chest pain no nausea vomiting diarrhea. No rash no diaphoresis. Patient voices no other complaints or concerns at this time. Portions of this note were created with voice recognition technology. There may be grammatical, spelling, punctuation or sound alike errors Timing/Duration: yesterday Severity: moderate Modifying Factors: Improves With: nothing Associated Symptoms: weakness, other (Generalized weakness and sleeping excessively) Allergies/Adverse Reactions: carbamazepine [From Tegretol] Allergy (Verified 06/10/24 11:42) pt can't remember what this med does to her, but also and adverse rx diazepam [From Valium] Adverse Reaction (Verified 06/10/24 11:42) severe confusion hydrocodone Adverse Reaction (Verified 06/10/24 11:42) severe confusion Home Medications: Amitriptyline HCl 200 mg PO QHS 06/16/15 [History] Cholecalciferol (Vitamin D3) [Vitamin D3] 2,000 unit PO DAILY 01/26/17 [History] hydroCHLOROthiazide [Hydrochlorothiazide] 12.5 mg PO DAILY 11/01/20 [History] Metoprolol Succinate 50 mg [Toprol Xl 50 MG] See Rx Instructions .ROUTE .COMPLEX 06/01/21 [History] Escitalopram Oxalate [Lexapro] 10 mg PO DAILY 06/10/24 [History] Losartan Potassium [Cozaar] 25 mg PO DAILY 06/10/24 [History] Tramadol HCl 50 mg [Ultram 50 mg] 50 mg PO DAILY PRN 06/10/24 [History] Hx Tetanus, Diphtheria Vaccination/Date Given: Yes Hx Influenza Vaccination/Date Given: No Hx Pneumococcal Vaccination/Date Given: No Travel Risk - Emerging Infectious Disease Are you exhibiting symptoms associated with any current EIDs: No - Review of Systems Constitutional: No Symptoms, No Fever, No Chills Eyes: No Symptoms Ears, Nose, & Throat: No Symptoms Respiratory: No Symptoms, No Cough, No Dyspnea Cardiac: No Symptoms, No Chest Pain, No Edema, No Syncope Abdominal/Gastrointestinal: No Symptoms, No Abdominal Pain, No Nausea, No Vomiting, No Diarrhea Genitourinary Symptoms: No Symptoms, No Dysuria Musculoskeletal: No Symptoms, No Back Pain, No Neck Pain Skin: No Symptoms, No Rash Neurological: No Symptoms, No Dizziness, No Focal Weakness, No Sensory Changes Psychological: No Symptoms Endocrine: No Symptoms Hematologic/Lymphatic: No Symptoms Immunological/Allergic: No Symptoms All Other Systems: Reviewed and Negative - Past Medical History Pertinent Past Medical History: Yes ENT History: Cataracts Cardiac History: Angina, Hypertension Respiratory History: No Pertinent History Endocrine Medical History: No Pertinent History Musculoskeletal History: Osteoporosis, Other GI Medical History: Irritable Bowel History: No Pertinent History Psycho-Social History: Anxiety, Depression Other Medical History: PT HAS BEEN TO FOR A CONSULTATION, NOT A CANDIDATE FOR SURGERY DUE TO OSTEOPOROSIS. NO COMPRESSION FRACTURES NOTED. PT SEES DR. PAYNE AND NOTES HER HEART IS FINE AT THIS TIME, SEES HIM EVERY 6 MONTHS. hx of scoliosis, Sees Dr Mason at our pain clinic - Past Surgical History Past Surgical History: Yes Neuro Surgical History: No Pertinent History Cardiac: No Pertinent History Respiratory: No Pertinent History Gastrointestinal: No Pertinent History Genitourinary: No Pertinent History Musculoskeletal: Orthopedic Surgery Female Surgical History: Section, Hysterectomy Other Surgical History: bilateral jaw reconstruction 1983, shoulder left fx Jan 2018,steriod inj in back Significant Family History: cancer - Social History Smoking Status: Former smoker Exposure to second hand smoke: No Drug Use: none - Social Determinants of Health Will the patient participate in the screening: Yes Do you worry about a steady place to live?: No In the past 12 months,have you had to go without utilities?: No Transportation Issues: No Has anyone in your support network made you feel unsafe?: No Have you or anyone in your house had to go w/o enough food: No - Nursing Vital Signs Nursing Vital Signs: Initial Vital Signs Temperature 97.6 F 06/10/24 11:20 Pulse Rate 89 06/10/24 11:20 Respiratory Rate 17 06/10/24 11:20 Blood Pressure 124/90 06/10/24 11:20 O2 Sat by Pulse Oximetry 96 06/10/24 11:20 Pain Scale Pain Intensity 0 - Physical Exam General Appearance: no apparent distress, alert Eye Exam: PERRL/EOMI, eyes nml inspection Ears, Nose, Throat Exam: normal ENT inspection, TMs normal, pharynx normal, moist mucous membranes Neck Exam: normal inspection, non-tender, supple, full range of motion Respiratory Exam: normal breath sounds, lungs clear, No respiratory distress Cardiovascular Exam: regular rate/rhythm, normal heart sounds, normal peripheral pulses Gastrointestinal/Abdomen Exam: soft, normal bowel sounds, No tenderness, No mass Back Exam: normal inspection, normal range of motion, No CVA tenderness, No vertebral tenderness Extremity Exam: normal inspection, normal range of motion, pelvis stable Neurologic Exam: alert, oriented x 3, cooperative, normal mood/affect, sensation nml, No motor deficits Skin Exam: normal color, warm, dry, No rash Lymphatic Exam: No adenopathy SpO2 Interpretation: normal SpO2: 96 O2 Delivery: Room Air - Course Nursing assessment & vital signs reviewed: Yes EKG Interpreted by Me: RATE (89), Sinus Rhythm, NORMAL AXIS, NORMAL INTERVALS, NORMAL QRS - Radiology Exams Chest X-ray Interpretation: Teleradiologist Report (Left pleural effusion otherwise no acute findings) - CT Exams Head CT Interpretation: Tele-radiologist Report (Nonacute senile brain) Ordered Tests: Active Orders 24 hr Category Date Time Status Fixed Route Bus Operator STAT Care 06/10/24 11:50 Active EKG-ER Only STAT Care 06/10/24 11:49 Active IV Insertion STAT Care 06/10/24 11:49 Active Obtain Stool Specimen ASORD Care 06/10/24 14:52 Active Pulse Oximetry (ED) STAT Care 06/10/24 11:49 Active CHEST 1 VIEW (PORTABLE) Stat Exams 06/10/24 11:50 Completed HEAD WITHOUT CONTRAST [CT] Stat Exams 06/10/24 15:55 Completed CBC W DIFF Stat Lab 06/10/24 12:30 Completed CMP Stat Lab 06/10/24 12:30 Completed CULTURE,URINE Stat Lab 06/10/24 13:32 Received NT PRO BNPII Stat Lab 06/10/24 12:30 Completed TROPONIN Q4H Lab 06/10/24 12:30 Completed TROPONIN Q4H Lab 06/10/24 16:00 Completed TROPONIN Q4H Lab 06/10/24 20:00 Ordered UA W/RFX UR CULTURE Stat Lab 06/10/24 13:32 Completed Transfer Order Routine Transfer 06/10/24 Ordered Medication Summary Generic Name Dose Route Start Last Admin Trade Name Nelson PRN Reason Stop Dose Admin Sodium Chloride 1,000 mls @ 100 mls/hr 06/10/24 16:15 06/10/24 16:06 Sodium Chloride 0.9% 1000 Ml IV 07/10/24 16:14 100 mls/hr .Q10H JADE Administration Discontinued Medications Generic Name Dose Route Start Last Admin Trade Name Nelson PRN Reason Stop Dose Admin Ceftriaxone Sodium 1 gm in 100 mls @ 200 mls/hr 06/10/24 16:03 06/10/24 16:39 Rocephin 1 Gm / 100 Ml Nacl IV 06/10/24 16:32 Infused STAT ONE Infusion Ceftriaxone Sodium Confirm 06/10/24 16:05 Rocephin 1 Gm / 100 Ml Nacl Administered 06/10/24 16:06 Dose 1 gm in 100 mls @ ud IV .[facility] Lab/Rad Data: Laboratory Result Diagrams 06/10/24 12:30 06/10/24 12:30 Laboratory Results 06/10/24 06/10/24 06/10/24 Range/Units 16:00 14:55 13:32 WBC (3.98-10.04) x10^3/uL RBC (3.93-5.22) x10^6/uL Hgb (11.2-15.7) g/dL Hct (34.1-44.9) % MCV (79.4-94.8) fL MCH (25.6-32.2) pg MCHC (32.2-35.5) g/dL RDW (11.7-14.4) % Plt Count (182-369) x10^3/uL MPV (9.4-12.3) fL Gran % (34.0-71.1) % Immature Gran % (Auto) (0.001-0.429) % Nucleat RBC Rel Count (0.00-0.2) % Eos # (Auto) (0.04-0.36) x10^3/uL Immature Gran # (Auto) (0.001-0.031) x10^3u/L Absolute Lymphs (auto) (1.18-3.74) x10^3/uL Absolute Monos (auto) (0.24-0.86) x10^3/uL Absolute Nucleated RBC (0.00-0.012) x10^3u/L Lymphocytes % (19.3-51.7) % Monocytes % (4.7-12.5) % Eosinophils % (0.7-5.8) % Basophils % (0.1-1.2) % Absolute Granulocytes (1.56-6.13) x10^3/uL Basophils # (0.01-0.08) x10^3/uL Sodium (135-145) mmol/L Potassium (3.5-5.1) mmol/L Chloride (98-107) mmol/L Carbon Dioxide (22-30) mmol/L Anion Gap (5-15) MEQ/L BUN (7-17) mg/dL Creatinine (0.52-1.04) mg/dL Estimated GFR ML/MIN Glucose (74-106) mg/dL Calcium (8.4-10.2) mg/dL Total Bilirubin (0.2-1.3) mg/dL AST (14-36) U/L ALT (0-35) U/L Alkaline Phosphatase (38-126) U/L Troponin I < 0.012 (0.000-0.033) ng/mL NT-Pro-B Natriuret Pep (<300) pg/mL Serum Total Protein (6.3-8.2) g/dL Albumin (3.5-5.0) g/dL Urine Color Yellow (Yellow) Urine Appearance Clear (Clear) Urine pH 6.0 (4.6-8.0) Ur Specific [place] 1.015 (1.005-1.030) Urine Protein Trace A (Negative) Urine Glucose (UA) Negative (Negative) mg/dL Urine Ketones Negative (Negative) Urine Blood Trace (Negative) Urine Nitrite Positive A (Negative) Urine Bilirubin Negative (Negative) Urine Urobilinogen 0.2 (0.2) mg/dL Ur Leukocyte Esterase Trace A (Negative) U Hyaline Cast (Auto) NONE SEEN (0-2) /LPF Urine Microscopic RBC 0-2 (0-5) /HPF Urine Microscopic WBC 3-5 (0-5) /HPF Ur Epithelial Cells None Seen (None Seen) /HPF Urine Bacteria Many A (None Seen) /HPF Urine Culture Reflexed YES (NO) C. difficile Screen POSITIVE (NEGATIVE) C.difficile 027-[id number] PRESUMPTIVE NEGATIVE (NEGATIVE) Slides for Path Review 06/10/24 06/10/24 Range/Units 12:30 12:30 WBC 13.2 H (3.98-10.04) x10^3/uL RBC 3.77 L (3.93-5.22) x10^6/uL Hgb 11.9 (11.2-15.7) g/dL Hct 37.7 (34.1-44.9) % MCV 100.0 H (79.4-94.8) fL MCH 31.6 (25.6-32.2) pg MCHC 31.6 L (32.2-35.5) g/dL RDW 14.6 H (11.7-14.4) % Plt Count 370 H (182-369) x10^3/uL MPV 9.2 L (9.4-12.3) fL Gran % 81.2 H (34.0-71.1) % Immature Gran % (Auto) 0.5 H (0.001-0.429) % Nucleat RBC Rel Count 0.0 (0.00-0.2) % Eos # (Auto) 0.05 (0.04-0.36) x10^3/uL Immature Gran # (Auto) 0.06 H (0.001-0.031) x10^3u/L Absolute Lymphs (auto) 1.10 L (1.18-3.74) x10^3/uL Absolute Monos (auto) 1.24 H (0.24-0.86) x10^3/uL Absolute Nucleated RBC 0.00 (0.00-0.012) x10^3u/L Lymphocytes % 8.3 L (19.3-51.7) % Monocytes % 9.4 (4.7-12.5) % Eosinophils % 0.4 L (0.7-5.8) % Basophils % 0.2 (0.1-1.2) % Absolute Granulocytes 10.70 H (1.56-6.13) x10^3/uL Basophils # 0.03 (0.01-0.08) x10^3/uL Sodium 136 (135-145) mmol/L Potassium 4.0 (3.5-5.1) mmol/L Chloride 100 (98-107) mmol/L Carbon Dioxide 24 (22-30) mmol/L Anion Gap 15.1 H (5-15) MEQ/L BUN 16 (7-17) mg/dL Creatinine 0.88 (0.52-1.04) mg/dL Estimated GFR 68.9 ML/MIN Glucose 122 H (74-106) mg/dL Calcium 9.0 (8.4-10.2) mg/dL Total Bilirubin 0.80 (0.2-1.3) mg/dL AST 32 (14-36) U/L ALT 31 (0-35) U/L Alkaline Phosphatase 97 (38-126) U/L Troponin I < 0.012 (0.000-0.033) ng/mL NT-Pro-B Natriuret Pep 659 (<300) pg/mL Serum Total Protein 7.3 (6.3-8.2) g/dL Albumin 3.9 (3.5-5.0) g/dL Urine Color (Yellow) Urine Appearance (Clear) Urine pH (4.6-8.0) Ur Specific [place] (1.005-1.030) Urine Protein (Negative) Urine Glucose (UA) (Negative) mg/dL Urine Ketones (Negative) Urine Blood (Negative) Urine Nitrite (Negative) Urine Bilirubin (Negative) Urine Urobilinogen (0.2) mg/dL Ur Leukocyte Esterase (Negative) U Hyaline Cast (Auto) (0-2) /LPF Urine Microscopic RBC (0-5) /HPF Urine Microscopic WBC (0-5) /HPF Ur Epithelial Cells (None Seen) /HPF Urine Bacteria (None Seen) /HPF Urine Culture Reflexed (NO) C. difficile Screen (NEGATIVE) C.difficile 027-NAP1-B1 (NEGATIVE) Slides for Path Review YES - Progress Progress: improved Progress Note: 73-year-old female presents to emergency department for evaluation of generalized weakness. Patient reports that her legs feel "wobbly". Workup reveals dehydration, urinary tract infection, and patient is C. difficile positive as well. IV fluids infused. Rocephin administered. We will attempt to initiate vancomycin 250 mg p.o. to treat the C. difficile. Patient will be admitted for further evaluation and treatment. Case discussed with hospitalist accepts admission to observation at 6:12 PM. Plan of care discussed with patient. She agrees to admission at [facility] for further evaluation and treatment. Portions of this note were created with voice recognition technology. There may be grammatical, spelling, punctuation or sound alike errors Complexity of problem addressed is moderate acute complicated. No critical care time. Complex of data reviewed and analyzed is extensive. Test ordered chest reviewed results analyzed and correlated clinically with history and physical exam. Risk of complication and or risk of morbidity/mortality of patient management is high. Patient requires hospitalization for further evaluation and treatment. Vital stable. Time spent to admit patient is approximately 15 minutes. Plan of care established for shared decision making. No social determinants of health present to impede follow-up. Portions of this note were created with voice recognition technology. There may be grammatical, spelling, punctuation or sound alike errors 06/10/24 18:15 Counseled pt/family regarding: lab results, diagnosis, rad results - Departure Departure Disposition: Observation Clinical Impression: Generalized weakness, Pleural effusion on left, Leukocytosis, Clostridium difficile diarrhea, UTI (urinary tract infection), Dehydration Condition: Stable Critical Care Time: No Referrals: YOUSUF ZHANG MD [Primary Care Provider] - Follow up/PCP as directed
--- NOTE | 2024-06-10 12:19 | XRAY ---
Indication: Weakness. Comparison: April 20, 2024 Portable chest again demonstrates new tiny left effusion. Remaining chest unchanged again with minimal bibasilar subsegmental atelectasis/scarring. Heart not enlarged again with descending aorta and mediastinal calcified nodes. Bony thorax intact again with osteopenia, degenerative changes, scoliosis, and old left humeral neck fracture.
[2024-06-10 12:35] LABS: BASOPHIL % 0.2 % (0.1-1.2); Basophil (Absolute #) 0.03 x10^3/uL (0.01-0.08); Eosinophil % 0.4 % (0.7-5.8); Eosinophil (Absolute #) 0.05 x10^3/uL (0.04-0.36); Hematocrit 37.7 % (34.1-44.9); Hemoglobin 11.9 g/dL (11.2-15.7); IMMATURE GRAN # 0.06 x10^3u/L (0.001-0.031); IMMATURE GRAN % 0.5 % (0.001-0.429); Lymphocytes % 8.3 % (19.3-51.7); Mean Corpuscular Hemoglobin 31.6 pg (25.6-32.2); Mean Corpuscular Hgb Concent. 31.6 g/dL (32.2-35.5); Mean Platelet Volume 9.2 fL (9.4-12.3); Monocyte (Absolute #) 1.24 x10^3/uL (0.24-0.86); Monocytes % 9.4 % (4.7-12.5); Neutrophil % 81.2 % (34.0-71.1); Platelet Count 370 x10^3/uL (182-369); Red Blood Count 3.77 x10^6/uL (3.93-5.22); Red Cell Distribution Width 14.6 % (11.7-14.4); White Blood Count 13.2 x10^3/uL (3.98-10.04)
[2024-06-10 13:01] LABS: ALBUMIN 3.9 g/dL (3.5-5.0); ALKALINE PHOSPHATASE 97 U/L (38-126); ANION GAP 15.1 MEQ/L (5-15); BLOOD UREA NITROGEN 16 mg/dL (7-17); CHLORIDE 100 mmol/L (98-107); Carbon Dioxide 24 mmol/L (22-30); Creatinine 1 0.88 mg/dL (0.52-1.04); EST GLOMERULAR FILTRATION RATE 68.9 ML/MIN; Glucose 122 mg/dL (74-106); NT PRO BNPII 659 pg/mL (<300); SGOT/AST 32 U/L (14-36); SGPT/ALT 31 U/L (0-35); SODIUM 136 mmol/L (135-145); TROPONIN < 0.012 ng/mL (0.000-0.033); Total Protein 7.3 g/dL (6.3-8.2)
[2024-06-10 13:18] LABS: Slide Review 1 YES
[2024-06-10 15:03] LABS: Appearance Clear (Clear); Bacteria Many /HPF (None Seen); Bilirubin Negative (Negative); Blood Trace (Negative); Epithelial Cells None Seen /HPF (None Seen); Glucose, Urine Negative (Negative); Hyaline Casts NONE SEEN /LPF (0-2); Ketones Negative (Negative); Leukocyte Esterase Trace (Negative); Nitrite Positive (Negative); Protein,Urine Dip Trace (Negative); RBC 0-2 /HPF (0-5); Specific Gravity 1.015 (1.005-1.030); Urobilinogen 0.2 mg/dL (0.2)
[2024-06-10 15:59] LABS: 027 TOX PROD PRESUMPTIVE NEGATIVE (NEGATIVE)
[2024-06-10 16:01] LABS: TOXIGENIC C. DIFF ORG POSITIVE (NEGATIVE)
[2024-06-10] MEDS ORDERED: ROCEPHIN 1 GM / 100 ML NaCl 1 GM/100 ML IVPB IV ONE (16:05)
[2024-06-10] MEDS: Sodium Chloride 0.9% 1000 ML 1,000 ML IV SCH (16:06)
[2024-06-10] MEDS: ROCEPHIN 1 GM / 100 ML NaCl 1 GM/100 ML IVPB IV ONE (16:06)
--- NOTE | 2024-06-10 17:10 | XRAY ---
Indication: Confusion. Negative CTA head and CTA neck exams April 20, 2024. Multiple contiguous axial images obtained through the head without contrast. Comparison: April 20, 2024 Again age-appropriate global atrophy and mild periventricular degenerative micro-ischemia. No acute intracranial hemorrhage, abnormal extra-axial fluid collection, or mass effect. Fourth ventricle is midline without hydrocephalus. Bony calvarium intact. Visualized paranasal sinuses and mastoid air cells are clear. Impression: Continued nonacute senile brain.
--- NOTE | 2024-06-10 20:30 | PCM.HP ---
History of Present Illness - Chief Complaint Chief Complaint: Generalized weakness, urinary tract infection, Date: 06/10/24 History of Present Illness: Ms. STERN is a 73 year old female with a past medical history significant for hypertension, hyperlipidemia and chronic back pain who presents to the hospital with complaints of weakness, inability to ambulate without wobbling and persistent diarrhea. She had been treated for a UTI about a month ago with antibiotics. She was again found to have a UTI but also tested positive for C dif. She has been recommended for admission. No fever/chills. No chest pain or shortness of breath. No nausea, vomiting or diarrhea. No dysuria, hematuria or urgency. She is seen via telehealth where she is resting in bed, awake/alert. - Review of Systems Constitutional: No Fever, No Chills Eyes: No Vision Changes Ears, Nose, & Throat: No Sinus Drainage Respiratory: No Cough, No Short Of Breath Cardiac: No Chest Pain, No Edema Abdominal/Gastrointestinal: Diarrhea, No Abdominal Pain, No Nausea, No Vomiting Genitourinary Symptoms: No Dysuria, No Frequency Musculoskeletal: Myalgias Skin: No Rash Neurological: Dizziness Psychological: No Suicidal Ideations Endocrine: No Polyuria, No Polydipsia Hematologic/Lymphatic: No Easy Bleeding Medications & Allergies Home Medications: Home Medication List Amitriptyline HCl 200 mg PO QHS 06/16/15 [History Confirmed 06/10/24] Cholecalciferol (Vitamin D3) [Vitamin D3] 2,000 unit PO DAILY 01/26/17 [History Confirmed 06/10/24] hydroCHLOROthiazide [Hydrochlorothiazide] 12.5 mg PO DAILY 11/01/20 [History Confirmed 06/10/24] Metoprolol Succinate 50 mg [Toprol Xl 50 MG] See Rx Instructions .ROUTE .C OMPLEX 06/01/21 [History Confirmed 06/10/24] Escitalopram Oxalate [Lexapro] 10 mg PO DAILY 06/10/24 [History Confirmed 06/10/24] Losartan Potassium [Cozaar] 25 mg PO DAILY 06/10/24 [History Confirmed 06/10/24] Tramadol HCl 50 mg [Ultram 50 mg] 50 mg PO DAILY PRN 06/10/24 [History Confirmed 06/10/24] Allergies/Adverse Reactions: Allergies Allergy/AdvReac Type Severity Reaction Status Date / Time carbamazepine [From Tegretol] Allergy Verified 06/10/24 11:42 diazepam [From Valium] AdvReac Verified 06/10/24 11:42 hydrocodone AdvReac Verified 06/10/24 11:42 - Past Medical History Past Medical History: Yes Neurological History: Migraines ENT History: Cataracts Cardiac History: Angina, Hypertension Respiratory History: No Pertinent History Endocrine Medical History: No Pertinent History Musculoskelatal History: Osteoporosis, Other GI Medical History: Irritable Bowel History: No Pertinent History Pyscho-Social History: Anxiety, Depression Reproductive Disorders: Abnormal Uterine Bleeding Comment: PT HAS BEEN TO FOR A CONSULTATION, NOT A CANDIDATE FOR SURGERY DUE TO OSTEOPOROSIS. NO COMPRESSION FRACTURES NOTED. PT SEES DR. PAYNE AND NOTES HER HEART IS FINE AT THIS TIME, SEES HIM EVERY 6 MONTHS. hx of scoliosis, Sees Dr Mason at our pain clinic - Past Surgical History Past Surgical History: Yes Neuro Surgical History: No Pertinent History Cardiac History: No Pertinent History Respiratory Surgery: No Pertinent History GI Surgical History: No Pertinent History Genitourinary Surgical Hx: No Pertinent History Musculskeletal Surgical Hx: Orthopedic Surgery Female Surgical History: Section, Hysterectomy Other Surgical History: bilateral jaw reconstruction 1983, shoulder left fx Jan 2018,steriod inj in back Significant Family History: cancer - Social History Smoking Status: Former smoker Exposure to second hand smoke: No Alcohol: None Drug Use: none - Social Determinants of Health Will the patient participate in the screening: Yes Do you worry about a steady place to live?: No In the past 12 months,have you had to go without utilities?: No Have you or anyone in your house had to go without enough: No Transportation Issues: No Has anyone in your support network made you feel unsafe?: No Does the patient want assistance with any of the above?: No - Physical Exam Vital Signs: Vital Signs - 24 hr Temp Pulse Resp BP BP Pulse Ox 06/10/24 20:05 97.1 F 89 16 129/73 94 L 06/10/24 18:18 96 06/10/24 18:00 88 15 123/82 06/10/24 17:30 88 17 119/81 06/10/24 17:01 87 18 117/82 96 06/10/24 16:30 89 19 115/80 97 06/10/24 16:19 88 19 126/92 97 06/10/24 15:30 80 18 111/79 95 06/10/24 15:00 89 22 134/88 96 06/10/24 14:30 89 20 114/72 96 06/10/24 14:00 88 19 112/87 95 06/10/24 13:33 87 20 119/89 06/10/24 13:32 94 L 06/10/24 12:20 86 16 124/90 96 06/10/24 11:49 96 06/10/24 11:20 97.6 F 89 17 124/90 96 General Appearance: no apparent distress Neurologic Exam: alert Ears, Nose, Throat Exam: dry mucous membranes Neck Exam: normal inspection, supple Respiratory Exam: No respiratory distress Cardiovascular Exam: regular rate/rhythm Gastrointestinal/Abdomen Exam: soft Extremity Exam: No pedal edema, No swelling Skin Exam: normal color, No rash Results - Labs Lab/Micro Results: Lab Results-Last 24 Hours 06/10/24 06/10/24 06/10/24 Range/Units 12:30 12:30 13:32 WBC 13.2 H (3.98-10.04) x10^3/uL RBC 3.77 L (3.93-5.22) x10^6/uL Hgb 11.9 (11.2-15.7) g/dL Hct 37.7 (34.1-44.9) % MCV 100.0 H (79.4-94.8) fL MCH 31.6 (25.6-32.2) pg MCHC 31.6 L (32.2-35.5) g/dL RDW 14.6 H (11.7-14.4) % Plt Count 370 H (182-369) x10^3/uL MPV 9.2 L (9.4-12.3) fL Gran % 81.2 H (34.0-71.1) % Immature Gran % (Auto) 0.5 H (0.001-0.429) % Nucleat RBC Rel Count 0.0 (0.00-0.2) % Eos # (Auto) 0.05 (0.04-0.36) x10^3/uL Immature Gran # (Auto) 0.06 H (0.001-0.031) x10^3u/L Absolute Lymphs (auto) 1.10 L (1.18-3.74) x10^3/uL Absolute Monos (auto) 1.24 H (0.24-0.86) x10^3/uL Absolute Nucleated RBC 0.00 (0.00-0.012) x10^3u/L Lymphocytes % 8.3 L (19.3-51.7) % Monocytes % 9.4 (4.7-12.5) % Eosinophils % 0.4 L (0.7-5.8) % Basophils % 0.2 (0.1-1.2) % Absolute Granulocytes 10.70 H (1.56-6.13) x10^3/uL Basophils # 0.03 (0.01-0.08) x10^3/uL Sodium 136 (135-145) mmol/L Potassium 4.0 (3.5-5.1) mmol/L Chloride 100 (98-107) mmol/L Carbon Dioxide 24 (22-30) mmol/L Anion Gap 15.1 H (5-15) MEQ/L BUN 16 (7-17) mg/dL Creatinine 0.88 (0.52-1.04) mg/dL Estimated GFR 68.9 ML/MIN Glucose 122 H (74-106) mg/dL Calcium 9.0 (8.4-10.2) mg/dL Total Bilirubin 0.80 (0.2-1.3) mg/dL AST 32 (14-36) U/L ALT 31 (0-35) U/L Alkaline Phosphatase 97 (38-126) U/L Troponin I < 0.012 (0.000-0.033) ng/mL NT-Pro-B Natriuret Pep 659 (<300) pg/mL Serum Total Protein 7.3 (6.3-8.2) g/dL Albumin 3.9 (3.5-5.0) g/dL Urine Color Yellow (Yellow) Urine Appearance Clear (Clear) Urine pH 6.0 (4.6-8.0) Ur Specific [place] 1.015 (1.005-1.030) Urine Protein Trace A (Negative) Urine Glucose (UA) Negative (Negative) mg/dL Urine Ketones Negative (Negative) Urine Blood Trace (Negative) Urine Nitrite Positive A (Negative) Urine Bilirubin Negative (Negative) Urine Urobilinogen 0.2 (0.2) mg/dL Ur Leukocyte Esterase Trace A (Negative) U Hyaline Cast (Auto) NONE SEEN (0-2) /LPF Urine Microscopic RBC 0-2 (0-5) /HPF Urine Microscopic WBC 3-5 (0-5) /HPF Ur Epithelial Cells None Seen (None Seen) /HPF Urine Bacteria Many A (None Seen) /HPF Urine Culture Reflexed YES (NO) C. difficile Screen (NEGATIVE) C.difficile 027-NAP1-B1 (NEGATIVE) Slides for Path Review YES 06/10/24 06/10/24 Range/Units 14:55 16:00 WBC (3.98-10.04) x10^3/uL RBC (3.93-5.22) x10^6/uL Hgb (11.2-15.7) g/dL Hct (34.1-44.9) % MCV (79.4-94.8) fL MCH (25.6-32.2) pg MCHC (32.2-35.5) g/dL RDW (11.7-14.4) % Plt Count (182-369) x10^3/uL MPV (9.4-12.3) fL Gran % (34.0-71.1) % Immature Gran % (Auto) (0.001-0.429) % Nucleat RBC Rel Count (0.00-0.2) % Eos # (Auto) (0.04-0.36) x10^3/uL Immature Gran # (Auto) (0.001-0.031) x10^3u/L Absolute Lymphs (auto) (1.18-3.74) x10^3/uL Absolute Monos (auto) (0.24-0.86) x10^3/uL Absolute Nucleated RBC (0.00-0.012) x10^3u/L Lymphocytes % (19.3-51.7) % Monocytes % (4.7-12.5) % Eosinophils % (0.7-5.8) % Basophils % (0.1-1.2) % Absolute Granulocytes (1.56-6.13) x10^3/uL Basophils # (0.01-0.08) x10^3/uL Sodium (135-145) mmol/L Potassium (3.5-5.1) mmol/L Chloride (98-107) mmol/L Carbon Dioxide (22-30) mmol/L Anion Gap (5-15) MEQ/L BUN (7-17) mg/dL Creatinine (0.52-1.04) mg/dL Estimated GFR ML/MIN Glucose (74-106) mg/dL Calcium (8.4-10.2) mg/dL Total Bilirubin (0.2-1.3) mg/dL AST (14-36) U/L ALT (0-35) U/L Alkaline Phosphatase (38-126) U/L Troponin I < 0.012 (0.000-0.033) ng/mL NT-Pro-B Natriuret Pep (<300) pg/mL Serum Total Protein (6.3-8.2) g/dL Albumin (3.5-5.0) g/dL Urine Color (Yellow) Urine Appearance (Clear) Urine pH (4.6-8.0) Ur Specific [place] (1.005-1.030) Urine Protein (Negative) Urine Glucose (UA) (Negative) mg/dL Urine Ketones (Negative) Urine Blood (Negative) Urine Nitrite (Negative) Urine Bilirubin (Negative) Urine Urobilinogen (0.2) mg/dL Ur Leukocyte Esterase (Negative) U Hyaline Cast (Auto) (0-2) /LPF Urine Microscopic RBC (0-5) /HPF Urine Microscopic WBC (0-5) /HPF Ur Epithelial Cells (None Seen) /HPF Urine Bacteria (None Seen) /HPF Urine Culture Reflexed (NO) C. difficile Screen POSITIVE (NEGATIVE) C.difficile 027-NAP1-B1 PRESUMPTIVE NEGATIVE (NEGATIVE) Slides for Path Review - Radiology Impressions Radiology Exams & Impressions: Radiology Procedures Category Date Time Status CHEST 1 VIEW (PORTABLE) Stat Exams 06/10/24 11:50 Completed HEAD WITHOUT CONTRAST [CT] Stat Exams 06/10/24 15:55 Completed Assessment/Plan (1) Clostridium difficile diarrhea Current Visit: Yes Status: Acute Assessment & Plan: Patient tested positive for C dif likely from previous antibiotic use 1. Admit to hospital 2. Start oral Vanco 3. Contact isolation 4. GI/DVT prophylaxis 5. Trend WBC 6. IVFs 7. Watch electrolytes, kidney function Code(s): A04.72 - ENTEROCOLITIS D/T CLOSTRIDIUM DIFFICILE, NOT SPCF RECUR (2) Generalized weakness Current Visit: Yes Status: Acute Assessment & Plan: Likely from C dif and dehydration 1. IVFs 2. PT eval 3. Fall precautions Code(s): R53.1 - WEAKNESS (3) UTI (urinary tract infection) Current Visit: Yes Status: Acute Assessment & Plan: UTI with positive nitrites 1. Start empiric Rocephin 2. IVFs 3. Follow up urine culture Code(s): N39.0 - URINARY TRACT INFECTION, SITE NOT SPECIFIED (4) HTN (hypertension) Current Visit: No Status: Acute Qualifiers: Hypertension type: primary hypertension Qualified Code(s): I10 - Essential (primary) hypertension Assessment & Plan: BP on the soft side 1. Continue bp meds for now 2. Monitor blood pressure readings Code(s): I10 - ESSENTIAL (PRIMARY) HYPERTENSION Telemedicine Encounter - Telemedicine Encounter Telemedicine Encounter: "The entirety of this encounter was performed via Telemedicine" This visit was performed using real-time audio and video connection between my location and thepatients locationwith the assistance of a surrogateat the patients location. Written or verbal consent was obtained from the patient/guardian to perform this visit usings[facility] technology. Any patient questions regarding the telemedicine interaction were answered.
[2024-06-10] MEDS ORDERED: AMITRIPTYLINE HCL 100 MG PO SCH (22:00)
[2024-06-10] MEDS: VANCOMYCIN HCL CAPSULE PO SCH (22:08)
[2024-06-11 05:06] LABS: Absolute Neutrophil Ct (ANC) 9.35 x10^3/uL (1.56-6.13); BASOPHIL % 0.4 % (0.1-1.2); Basophil (Absolute #) 0.05 x10^3/uL (0.01-0.08); Eosinophil % 1.1 % (0.7-5.8); Eosinophil (Absolute #) 0.13 x10^3/uL (0.04-0.36); Hemoglobin 11.4 g/dL (11.2-15.7); IMMATURE GRAN # 0.05 x10^3u/L (0.001-0.031); IMMATURE GRAN % 0.4 % (0.001-0.429); Lymphocytes % 10.1 % (19.3-51.7); Mean Cell Volume 98.9 fL (79.4-94.8); Mean Corpuscular Hemoglobin 31.3 pg (25.6-32.2); Mean Corpuscular Hgb Concent. 31.7 g/dL (32.2-35.5); Mean Platelet Volume 9.5 fL (9.4-12.3); Monocyte (Absolute #) 1.14 x10^3/uL (0.24-0.86); Monocytes % 9.6 % (4.7-12.5); Neutrophil % 78.4 % (34.0-71.1); Platelet Count 396 x10^3/uL (182-369); Red Blood Count 3.64 x10^6/uL (3.93-5.22); Red Cell Distribution Width 14.7 % (11.7-14.4); White Blood Count 11.9 x10^3/uL (3.98-10.04)
--- NOTE | 2024-06-11 05:38 | PCM.NOTE ---
Date and Time: 06/11/24 0533 Subjective Assessment: HPI: Ms. STERN is a 73 year old female with a past medical history significant for hypertension, hyperlipidemia and chronic back pain who presents to the hospital with complaints of weakness, inability to ambulate without wobbling and persistent diarrhea. She had been treated for a UTI about a month ago with antibiotics. She was again found to have a UTI but also tested positive for C dif. She has been recommended for admission. No fever/chills. No chest pain or shortness of breath. No nausea, vomiting or diarrhea. No dysuria, hematuria or urgency. She is seen via telehealth where she is resting in bed, awake/alert. 06/11/24: Met with patient bedside. She is A&O x 3 this morning. She endorses chills. Afebrile overnight. CDiff testing reviewed and result is not positive for acute infection - will discontinue vanc. Reviewed previous urine cultures from April showing resistant strain of enterococcus faecium. Will change abx to dapto. Denies fever,cough, sob, cp, abdominal pain, WOODY, dizziness, N/V/D. - Review of Systems Constitutional: Chills, Weakness Eyes: No Symptoms Ears, Nose, & Throat: No Symptoms Respiratory: No Symptoms Cardiac: No Symptoms Abdominal/Gastrointestinal: No Symptoms Genitourinary Symptoms: Dysuria Musculoskeletal: No Symptoms Skin: No Symptoms Neurological: No Symptoms Psychological: No Symptoms Endocrine: No Symptoms Hematologic/Lymphatic: No Symptoms Immunological/Allergic: No Symptoms Objective Exam General Appearance: no apparent distress Neurologic Exam: alert, oriented x 3, cooperative Skin Exam: normal color Eye Exam: PERRL Ears, Nose, Throat Exam: normal ENT inspection Neck Exam: normal inspection Respiratory Exam: normal breath sounds, lungs clear Cardiovascular Exam: regular rate/rhythm, normal heart sounds Gastrointestinal/Abdomen Exam: soft, normal bowel sounds Extremity Exam: normal inspection Back Exam: normal inspection Pelvic Exam: deferred Rectal Exam: deferred Objective Data Vital Signs: Vital Signs - 24 hr Temp Pulse Resp BP BP Pulse Ox 06/11/24 03:22 97.6 F 95 H 20 160/92 92 L 06/10/24 23:32 97.3 F 91 H 16 135/76 94 L 06/10/24 20:05 97.1 F 89 16 129/73 94 L 06/10/24 20:02 97.1 F 89 16 129/73 94 L 06/10/24 18:18 96 06/10/24 18:00 88 15 123/82 06/10/24 17:30 88 17 119/81 06/10/24 17:01 87 18 117/82 96 06/10/24 16:30 89 19 115/80 97 06/10/24 16:19 88 19 126/92 97 06/10/24 15:30 80 18 111/79 95 06/10/24 15:00 89 22 134/88 96 06/10/24 14:30 89 20 114/72 96 06/10/24 14:00 88 19 112/87 95 06/10/24 13:33 87 20 119/89 06/10/24 13:32 94 L 06/10/24 12:20 86 16 124/90 96 06/10/24 11:49 96 06/10/24 11:20 97.6 F 89 17 124/90 96 Pain Assessment - Last Documented Pain Intensity 0 Intake and Output: Intake & Output 06/08/24 06/09/24 06/10/24 06/11/24 11:59 11:59 11:59 11:59 Intake Total 120 Balance 120 Weight 55.4 kg 52.4 kg Lab Results: Lab Results-Last 24 Hours 06/10/24 06/10/24 06/10/24 Range/Units 12:30 12:30 13:32 WBC 13.2 H (3.98-10.04) x10^3/uL RBC 3.77 L (3.93-5.22) x10^6/uL Hgb 11.9 (11.2-15.7) g/dL Hct 37.7 (34.1-44.9) % MCV 100.0 H (79.4-94.8) fL MCH 31.6 (25.6-32.2) pg MCHC 31.6 L (32.2-35.5) g/dL RDW 14.6 H (11.7-14.4) % Plt Count 370 H (182-369) x10^3/uL MPV 9.2 L (9.4-12.3) fL Gran % 81.2 H (34.0-71.1) % Immature Gran % (Auto) 0.5 H (0.001-0.429) % Nucleat RBC Rel Count 0.0 (0.00-0.2) % Eos # (Auto) 0.05 (0.04-0.36) x10^3/uL Immature Gran # (Auto) 0.06 H (0.001-0.031) x10^3u/L Absolute Lymphs (auto) 1.10 L (1.18-3.74) x10^3/uL Absolute Monos (auto) 1.24 H (0.24-0.86) x10^3/uL Absolute Nucleated RBC 0.00 (0.00-0.012) x10^3u/L Lymphocytes % 8.3 L (19.3-51.7) % Monocytes % 9.4 (4.7-12.5) % Eosinophils % 0.4 L (0.7-5.8) % Basophils % 0.2 (0.1-1.2) % Absolute Granulocytes 10.70 H (1.56-6.13) x10^3/uL Basophils # 0.03 (0.01-0.08) x10^3/uL Sodium 136 (135-145) mmol/L Potassium 4.0 (3.5-5.1) mmol/L Chloride 100 (98-107) mmol/L Carbon Dioxide 24 (22-30) mmol/L Anion Gap 15.1 H (5-15) MEQ/L BUN 16 (7-17) mg/dL Creatinine 0.88 (0.52-1.04) mg/dL Estimated GFR 68.9 ML/MIN Glucose 122 H (74-106) mg/dL Calcium 9.0 (8.4-10.2) mg/dL Total Bilirubin 0.80 (0.2-1.3) mg/dL AST 32 (14-36) U/L ALT 31 (0-35) U/L Alkaline Phosphatase 97 (38-126) U/L Troponin I < 0.012 (0.000-0.033) ng/mL NT-Pro-B Natriuret Pep 659 (<300) pg/mL Serum Total Protein 7.3 (6.3-8.2) g/dL Albumin 3.9 (3.5-5.0) g/dL Urine Color Yellow (Yellow) Urine Appearance Clear (Clear) Urine pH 6.0 (4.6-8.0) Ur Specific [place] 1.015 (1.005-1.030) Urine Protein Trace A (Negative) Urine Glucose (UA) Negative (Negative) mg/dL Urine Ketones Negative (Negative) Urine Blood Trace (Negative) Urine Nitrite Positive A (Negative) Urine Bilirubin Negative (Negative) Urine Urobilinogen 0.2 (0.2) mg/dL Ur Leukocyte Esterase Trace A (Negative) U Hyaline Cast (Auto) NONE SEEN (0-2) /LPF Urine Microscopic RBC 0-2 (0-5) /HPF Urine Microscopic WBC 3-5 (0-5) /HPF Ur Epithelial Cells None Seen (None Seen) /HPF Urine Bacteria Many A (None Seen) /HPF Urine Culture Reflexed YES (NO) C. difficile Screen (NEGATIVE) C.difficile 027-NAP1-B1 (NEGATIVE) Slides for Path Review YES 06/10/24 06/10/24 06/10/24 Range/Units 14:55 16:00 20:00 WBC (3.98-10.04) x10^3/uL RBC (3.93-5.22) x10^6/uL Hgb (11.2-15.7) g/dL Hct (34.1-44.9) % MCV (79.4-94.8) fL MCH (25.6-32.2) pg MCHC (32.2-35.5) g/dL RDW (11.7-14.4) % Plt Count (182-369) x10^3/uL MPV (9.4-12.3) fL Gran % (34.0-71.1) % Immature Gran % (Auto) (0.001-0.429) % Nucleat RBC Rel Count (0.00-0.2) % Eos # (Auto) (0.04-0.36) x10^3/uL Immature Gran # (Auto) (0.001-0.031) x10^3u/L Absolute Lymphs (auto) (1.18-3.74) x10^3/uL Absolute Monos (auto) (0.24-0.86) x10^3/uL Absolute Nucleated RBC (0.00-0.012) x10^3u/L Lymphocytes % (19.3-51.7) % Monocytes % (4.7-12.5) % Eosinophils % (0.7-5.8) % Basophils % (0.1-1.2) % Absolute Granulocytes (1.56-6.13) x10^3/uL Basophils # (0.01-0.08) x10^3/uL Sodium (135-145) mmol/L Potassium (3.5-5.1) mmol/L Chloride (98-107) mmol/L Carbon Dioxide (22-30) mmol/L Anion Gap (5-15) MEQ/L BUN (7-17) mg/dL Creatinine (0.52-1.04) mg/dL Estimated GFR ML/MIN Glucose (74-106) mg/dL Calcium (8.4-10.2) mg/dL Total Bilirubin (0.2-1.3) mg/dL AST (14-36) U/L ALT (0-35) U/L Alkaline Phosphatase (38-126) U/L Troponin I < 0.012 < 0.012 (0.000-0.033) ng/mL NT-Pro-B Natriuret Pep (<300) pg/mL Serum Total Protein (6.3-8.2) g/dL Albumin (3.5-5.0) g/dL Urine Color (Yellow) Urine Appearance (Clear) Urine pH (4.6-8.0) Ur Specific [place] (1.005-1.030) Urine Protein (Negative) Urine Glucose (UA) (Negative) mg/dL Urine Ketones (Negative) Urine Blood (Negative) Urine Nitrite (Negative) Urine Bilirubin (Negative) Urine Urobilinogen (0.2) mg/dL Ur Leukocyte Esterase (Negative) U Hyaline Cast (Auto) (0-2) /LPF Urine Microscopic RBC (0-5) /HPF Urine Microscopic WBC (0-5) /HPF Ur Epithelial Cells (None Seen) /HPF Urine Bacteria (None Seen) /HPF Urine Culture Reflexed (NO) C. difficile Screen POSITIVE (NEGATIVE) C.difficile 027-NAP1-B1 PRESUMPTIVE NEGATIVE (NEGATIVE) Slides for Path Review Radiology Exams: Radiology Procedures Category Date Time Status CHEST 1 VIEW (PORTABLE) Stat Exams 06/10/24 11:50 Completed HEAD WITHOUT CONTRAST [CT] Stat Exams 06/10/24 15:55 Completed Assessment/Plan (1) Clostridium difficile diarrhea Current Visit: Yes Status: Acute Assessment & Plan: -CDiff testing is not positive for active CDiff - will discontinue vanc Code(s): A04.72 - ENTEROCOLITIS D/T CLOSTRIDIUM DIFFICILE, NOT SPCF RECUR (2) UTI (urinary tract infection) Current Visit: Yes Status: Acute Assessment & Plan: -UA suspicious for infection- started on Rocephin empirically - reviewed previous culture with resistant strain of enterococcus - will change abx to Dapto -blood cultures -CT head negative for acute findings Code(s): N39.0 - URINARY TRACT INFECTION, SITE NOT SPECIFIED (3) Generalized weakness Current Visit: Yes Status: Acute Assessment & Plan: -2/2 to GI losses -PT eval -Fall precautions Code(s): R53.1 - WEAKNESS (4) HTN (hypertension) Current Visit: No Status: Acute Qualifiers: Hypertension type: primary hypertension Qualified Code(s): I10 - Essential (primary) hypertension Assessment & Plan: -stable - continue home meds Code(s): I10 - ESSENTIAL (PRIMARY) HYPERTENSION (5) Leukocytosis Current Visit: Yes Status: Acute Assessment & Plan: -Most likely secondary to UTI -WBC reviewed at 11.9<13.2 - trend -CXR demonstrates new tiny left effusion. Remaining chest unchanged again with minimal bibasilar subsegmental atelectasis/scarring -Continue Rocephin VTE: lovenox PPI: Protonix Dispo: 1-2 days Code(s): D72.829 - ELEVATED WHITE BLOOD CELL COUNT, UNSPECIFIED (6) Hypokalemia Current Visit: Yes Status: Acute Assessment & Plan: -2/2 to GI loss -Potassium reviewed at 3.2- replenish per potassium protocol Code(s): E87.6 - HYPOKALEMIA
[2024-06-11 05:45] LABS: ALBUMIN 3.8 g/dL (3.5-5.0); ANION GAP 14.7 MEQ/L (5-15); Calcium 8.6 mg/dL (8.4-10.2); Creatinine 1 0.81 mg/dL (0.52-1.04); EST GLOMERULAR FILTRATION RATE 76.1 ML/MIN; MAGNESIUM 1.8 mg/dL (1.6-2.3); PHOSPHOROUS 2.9 mg/dL (2.5-4.5); Potassium 3.2 mmol/L (3.5-5.1)
[2024-06-11] MEDS: ROCEPHIN 1 GM / 100 ML NaCl 1 GM/100 ML IVPB IV SCH (09:21)
[2024-06-11] MEDS: Klor Con PO SCH (09:22)
[2024-06-11] MEDS: Lexapro PO SCH (09:22)
[2024-06-11] MEDS: Cozaar 50 MG PO SCH (09:22)
[2024-06-11] MEDS: Toprol Xl 50 MG PO SCH (09:22)
[2024-06-11] MEDS: ENOXAPARIN SODIUM SQ SCH (09:23)
[2024-06-11] MEDS: Protonix 40MG Tablet PO SCH (09:23)
[2024-06-11] MEDS ORDERED: NON-FORMULARY ITEM (Losartan Potassium [Cozaar] 25 MG Tablet) PO SCH (10:00)
[2024-06-11] MEDS: SODIUM CHLORIDE FLUSH IV SCH (13:36)
[2024-06-11] MEDS: DAPTOMYCIN IV SCH (13:36)
[2024-06-11] MEDS: PHARMACY DOSING REQUEST MC ONE (13:59)
[2024-06-11] MEDS: TYLENOL 325 MG PO PRN (15:27)
--- NOTE | 2024-06-12 05:16 | PCM.NOTE ---
Date and Time: 06/12/24 0516 Subjective Assessment: HPI: Ms. STERN is a 73 year old female with a past medical history significant for hypertension, hyperlipidemia and chronic back pain who presents to the hospital with complaints of weakness, inability to ambulate without wobbling and persistent diarrhea. She had been treated for a UTI about a month ago with antibiotics. She was again found to have a UTI but also tested positive for C dif. She has been recommended for admission. No fever/chills. No chest pain or shortness of breath. No nausea, vomiting or diarrhea. No dysuria, hematuria or urgency. She is seen via telehealth where she is resting in bed, awake/alert. 06/11/24: Met with patient bedside. She is A&O x 3 this morning. She endorses chills. Afebrile overnight. CDiff testing reviewed and result is not positive for acute infection - will discontinue vanc. Reviewed previous urine cultures from April showing resistant strain of enterococcus faecium. Will change abx to dapto. Denies fever,cough, sob, cp, abdominal pain, WOODY, dizziness, N/V/D. 06/12/24: Met with patient bedside. Endorses continued weakness - improved. Ucult results pending. Will continue Dapto pending final culture results. No urinary symptoms. Placement at [facility] pending. Denies fever,cough, sob, cp, abdominal pain, WOODY, dizziness, N/V/D. - Review of Systems Constitutional: Weakness Eyes: No Symptoms Ears, Nose, & Throat: No Symptoms Respiratory: No Symptoms Cardiac: No Symptoms Abdominal/Gastrointestinal: No Symptoms Genitourinary Symptoms: No Symptoms Musculoskeletal: No Symptoms Skin: No Symptoms Neurological: No Symptoms Psychological: No Symptoms Endocrine: No Symptoms Hematologic/Lymphatic: No Symptoms Immunological/Allergic: No Symptoms Objective Exam General Appearance: no apparent distress Neurologic Exam: alert, oriented x 3, cooperative, confusion Eye Exam: PERRL Ears, Nose, Throat Exam: normal ENT inspection Neck Exam: normal inspection Respiratory Exam: normal breath sounds, lungs clear Cardiovascular Exam: regular rate/rhythm, normal heart sounds Gastrointestinal/Abdomen Exam: soft, normal bowel sounds Extremity Exam: normal inspection Back Exam: normal inspection Pelvic Exam: deferred Rectal Exam: deferred Objective Data Vital Signs: Vital Signs - 24 hr Temp Pulse Resp BP Pulse Ox 06/12/24 03:00 98.2 F 98 H 16 116/81 94 L 06/11/24 23:00 98.1 F 102 H 17 118/92 93 L 06/11/24 19:00 97.3 F 105 H 20 110/72 92 L 06/11/24 18:07 76 06/11/24 15:00 98.2 F 114 H 16 129/76 93 L 06/11/24 11:00 98.0 F 121 H 16 121/80 96 06/11/24 06:54 97.8 F 105 H 16 168/88 93 L Pain Assessment - Last Documented Pain Intensity 0 Pain Scale Used 0-10 Pain Scale Intake and Output: Intake & Output 06/09/24 06/10/24 06/11/24 06/12/24 11:59 11:59 11:59 11:59 Intake Total 1823 2877 Balance 1823 2877 Weight 55.4 kg 52.4 kg Lab Results: Lab Results-Last 24 Hours 06/11/24 06/11/24 06/11/24 Range/Units 05:01 05:01 11:56 WBC 11.9 H (3.98-10.04) x10^3/uL RBC 3.64 L (3.93-5.22) x10^6/uL Hgb 11.4 (11.2-15.7) g/dL Hct 36.0 (34.1-44.9) % MCV 98.9 H (79.4-94.8) fL MCH 31.3 (25.6-32.2) pg MCHC 31.7 L (32.2-35.5) g/dL RDW 14.7 H (11.7-14.4) % Plt Count 396 H (182-369) x10^3/uL MPV 9.5 (9.4-12.3) fL Gran % 78.4 H (34.0-71.1) % Immature Gran % (Auto) 0.4 (0.001-0.429) % Nucleat RBC Rel Count 0.0 (0.00-0.2) % Eos # (Auto) 0.13 (0.04-0.36) x10^3/uL Immature Gran # (Auto) 0.05 H (0.001-0.031) x10^3u/L Absolute Lymphs (auto) 1.20 (1.18-3.74) x10^3/uL Absolute Monos (auto) 1.14 H (0.24-0.86) x10^3/uL Absolute Nucleated RBC 0.00 (0.00-0.012) x10^3u/L Lymphocytes % 10.1 L (19.3-51.7) % Monocytes % 9.6 (4.7-12.5) % Eosinophils % 1.1 (0.7-5.8) % Basophils % 0.4 (0.1-1.2) % Absolute Granulocytes 9.35 H (1.56-6.13) x10^3/uL Basophils # 0.05 (0.01-0.08) x10^3/uL Sodium 137 (135-145) mmol/L Potassium 3.2 L 3.5 (3.5-5.1) mmol/L Chloride 101 (98-107) mmol/L Carbon Dioxide 25 (22-30) mmol/L Anion Gap 14.7 (5-15) MEQ/L BUN 15 (7-17) mg/dL Creatinine 0.81 (0.52-1.04) mg/dL Estimated GFR 76.1 ML/MIN Glucose 110 H (74-106) mg/dL Calcium 8.6 (8.4-10.2) mg/dL Phosphorus 2.9 (2.5-4.5) mg/dL Magnesium 1.8 (1.6-2.3) mg/dL Albumin 3.8 (3.5-5.0) g/dL 06/11/24 Range/Units 16:20 WBC (3.98-10.04) x10^3/uL RBC (3.93-5.22) x10^6/uL Hgb (11.2-15.7) g/dL Hct (34.1-44.9) % MCV (79.4-94.8) fL MCH (25.6-32.2) pg MCHC (32.2-35.5) g/dL RDW (11.7-14.4) % Plt Count (182-369) x10^3/uL MPV (9.4-12.3) fL Gran % (34.0-71.1) % Immature Gran % (Auto) (0.001-0.429) % Nucleat RBC Rel Count (0.00-0.2) % Eos # (Auto) (0.04-0.36) x10^3/uL Immature Gran # (Auto) (0.001-0.031) x10^3u/L Absolute Lymphs (auto) (1.18-3.74) x10^3/uL Absolute Monos (auto) (0.24-0.86) x10^3/uL Absolute Nucleated RBC (0.00-0.012) x10^3u/L Lymphocytes % (19.3-51.7) % Monocytes % (4.7-12.5) % Eosinophils % (0.7-5.8) % Basophils % (0.1-1.2) % Absolute Granulocytes (1.56-6.13) x10^3/uL Basophils # (0.01-0.08) x10^3/uL Sodium (135-145) mmol/L Potassium 3.8 (3.5-5.1) mmol/L Chloride (98-107) mmol/L Carbon Dioxide (22-30) mmol/L Anion Gap (5-15) MEQ/L BUN (7-17) mg/dL Creatinine (0.52-1.04) mg/dL Estimated GFR ML/MIN Glucose (74-106) mg/dL Calcium (8.4-10.2) mg/dL Phosphorus (2.5-4.5) mg/dL Magnesium (1.6-2.3) mg/dL Albumin (3.5-5.0) g/dL Radiology Exams: Radiology Procedures Category Date Time Status CHEST 1 VIEW (PORTABLE) Stat Exams 06/10/24 11:50 Completed HEAD WITHOUT CONTRAST [CT] Stat Exams 06/10/24 15:55 Completed Multi-Disciplinary Progress Notes: Multi-Disciplinary Progress Notes 06/11/24 11:33 Case Management Note by Lana Vora PATIENT HAS A [facility]. THEY WERE NOTIFIED PATIENT HERE OBS. THEY WILL NEED NOTIFIED AT TIME OF DC AT [phone]. THEY WILL NEED FAXED THE DC INSTRUCTIONS, DC MED LIST AND DC SUMMARY TO [phone] Initialized on 06/11/24 11:33 - END OF NOTE 06/11/24 11:30 (created 06/11/24 12:34) Case Management Note by Lana Vora PAPERWORK DONE, NO LEVEL II REQUIRED. COPIES PLACED ON CHART FULL REFERRAL FAXED TO [facility] Initialized on 06/11/24 12:34 - END OF NOTE Assessment/Plan (1) Clostridium difficile diarrhea Current Visit: Yes Status: Acute Assessment & Plan: -CDiff testing is not positive for active CDiff - will discontinue vanc Code(s): A04.72 - ENTEROCOLITIS D/T CLOSTRIDIUM DIFFICILE, NOT SPCF RECUR (2) UTI (urinary tract infection) Current Visit: Yes Status: Acute Assessment & Plan: -UA suspicious for infection- started on Rocephin empirically - reviewed previous culture with resistant strain of enterococcus - will change abx to Dapto -cultures pending final read/sens -blood cultures pending -CT head negative for acute findings Code(s): N39.0 - URINARY TRACT INFECTION, SITE NOT SPECIFIED (3) Generalized weakness Current Visit: Yes Status: Acute Assessment & Plan: -2/2 to GI losses -PT eval -Fall precautions 06/12: -placement pending at [facility] Code(s): R53.1 - WEAKNESS (4) HTN (hypertension) Current Visit: No Status: Acute Qualifiers: Hypertension type: primary hypertension Qualified Code(s): I10 - Essential (primary) hypertension Assessment & Plan: -stable - continue home meds Code(s): I10 - ESSENTIAL (PRIMARY) HYPERTENSION (5) Leukocytosis Current Visit: Yes Status: Acute Assessment & Plan: -Most likely secondary to UTI -WBC reviewed at 14.8>11.9<13.2 - trend -CXR demonstrates new tiny left effusion. Remaining chest unchanged again with minimal bibasilar subsegmental atelectasis/scarring -Continue Dapto VTE: lovenox PPI: Protonix Dispo: 1-2 days Code(s): D72.829 - ELEVATED WHITE BLOOD CELL COUNT, UNSPECIFIED (6) Hypokalemia Current Visit: Yes Status: Acute Assessment & Plan: -2/2 to GI loss -Potassium reviewed at 3.2- replenish per potassium protocol 06/12: -Potassium reviewed at 3.6 - resolved Code(s): A04.72 - ENTEROCOLITIS D/T CLOSTRIDIUM DIFFICILE, NOT SPCF RECUR (2) UTI (urinary tract infection) Current Visit: Yes Status: Acute Code(s): N39.0 - URINARY TRACT INFECTION, SITE NOT SPECIFIED (3) Generalized weakness Current Visit: Yes Status: Acute Code(s): R53.1 - WEAKNESS (4) HTN (hypertension) Current Visit: No Status: Acute Qualifiers: Hypertension type: primary hypertension Qualified Code(s): I10 - Essential (primary) hypertension Code(s): I10 - ESSENTIAL (PRIMARY) HYPERTENSION (5) Leukocytosis Current Visit: Yes Status: Acute Code(s): D72.829 - ELEVATED WHITE BLOOD CELL COUNT, UNSPECIFIED (6) Hypokalemia Current Visit: Yes Status: Acute Code(s): E87.6 - HYPOKALEMIA
[2024-06-12 07:03] LABS: Absolute Neutrophil Ct (ANC) 11.34 x10^3/uL (1.56-6.13); BASOPHIL % 0.3 % (0.1-1.2); Basophil (Absolute #) 0.05 x10^3/uL (0.01-0.08); Eosinophil % 1.6 % (0.7-5.8); Eosinophil (Absolute #) 0.24 x10^3/uL (0.04-0.36); Hematocrit 28.6 % (34.1-44.9); Hemoglobin 9.4 g/dL (11.2-15.7); IMMATURE GRAN # 0.09 x10^3u/L (0.001-0.031); IMMATURE GRAN % 0.6 % (0.001-0.429); Lymphocyte (Absolute #) 1.47 x10^3/uL (1.18-3.74); Lymphocytes % 9.9 % (19.3-51.7); Mean Corpuscular Hemoglobin 31.5 pg (25.6-32.2); Mean Corpuscular Hgb Concent. 32.9 g/dL (32.2-35.5); Mean Platelet Volume 9.2 fL (9.4-12.3); Monocyte (Absolute #) 1.59 x10^3/uL (0.24-0.86); Monocytes % 10.8 % (4.7-12.5); Neutrophil % 76.8 % (34.0-71.1); Platelet Count 390 x10^3/uL (182-369); Red Blood Count 2.98 x10^6/uL (3.93-5.22); Red Cell Distribution Width 14.5 % (11.7-14.4); White Blood Count 14.8 x10^3/uL (3.98-10.04)
[2024-06-12 07:30] LABS: MAGNESIUM 1.6 mg/dL (1.6-2.3)
[2024-06-12 07:35] LABS: CK-Creatinine Phosphokinase < 20 U/L (30-135)
[2024-06-12 07:38] LABS: Slide Review 1 YES
[2024-06-12 08:08] LABS: ALBUMIN 3.1 g/dL (3.5-5.0); ANION GAP 12.7 MEQ/L (5-15); BILIRUBIN,TOTAL 0.6 mg/dL (0.2-1.3); Calcium 8.2 mg/dL (8.4-10.2); Creatinine 1 0.68 mg/dL (0.52-1.04); EST GLOMERULAR FILTRATION RATE 91.3 ML/MIN; Potassium 3.6 mmol/L (3.5-5.1)
[2024-06-13 05:21] LABS: Absolute Neutrophil Ct (ANC) 6.22 x10^3/uL (1.56-6.13); BASOPHIL % 0.5 % (0.1-1.2); Basophil (Absolute #) 0.05 x10^3/uL (0.01-0.08); Eosinophil % 4.3 % (0.7-5.8); Eosinophil (Absolute #) 0.41 x10^3/uL (0.04-0.36); Hematocrit 29.9 % (34.1-44.9); Hemoglobin 9.5 g/dL (11.2-15.7); IMMATURE GRAN # 0.07 x10^3u/L (0.001-0.031); IMMATURE GRAN % 0.7 % (0.001-0.429); Lymphocyte (Absolute #) 1.64 x10^3/uL (1.18-3.74); Lymphocytes % 17.4 % (19.3-51.7); Mean Cell Volume 96.8 fL (79.4-94.8); Mean Corpuscular Hemoglobin 30.7 pg (25.6-32.2); Mean Corpuscular Hgb Concent. 31.8 g/dL (32.2-35.5); Mean Platelet Volume 9.2 fL (9.4-12.3); Monocyte (Absolute #) 1.05 x10^3/uL (0.24-0.86); Monocytes % 11.1 % (4.7-12.5); Platelet Count 428 x10^3/uL (182-369); Red Blood Count 3.09 x10^6/uL (3.93-5.22); Red Cell Distribution Width 14.7 % (11.7-14.4); White Blood Count 9.4 x10^3/uL (3.98-10.04)
[2024-06-13 05:45] LABS: ANION GAP 12.4 MEQ/L (5-15); BILIRUBIN,TOTAL 0.4 mg/dL (0.2-1.3); Calcium 8.2 mg/dL (8.4-10.2); Creatinine 1 0.73 mg/dL (0.52-1.04); EST GLOMERULAR FILTRATION RATE 86.2 ML/MIN
[2024-06-13] MEDS ORDERED: Klor Con ONE (06:33)
[2024-06-13] MEDS: Klor Con PO SCH (06:40)
--- NOTE | 2024-06-13 10:57 | PCM.DS ---
Discharge Summary Date of Admission: 06/10/24 18:33 Date of Discharge: 06/13/24 Admitting Physician: NAKUL BIRD MD Primary Care Provider: YOUSUF ZHANG AKIN Allergies Allergies carbamazepine [From Tegretol] Allergy (Verified 06/10/24 11:42) pt can't remember what this med does to her, but also and adverse rx diazepam [From Valium] Adverse Reaction (Verified 06/10/24 11:42) severe confusion hydrocodone Adverse Reaction (Verified 06/10/24 11:42) severe confusion Hospital Summary - Hospital Course Hospital Course: Ms. STERN is a 73 year old female with a past medical history significant for hypertension, hyperlipidemia and chronic back pain who presents to the hospital with complaints of weakness, inability to ambulate without wobbling and persistent diarrhea. She had been treated for a UTI about a month ago with antibiotics. She was again found to have a UTI .CDiff testing reviewed and result is not positive for acute infection - will discontinue vanc. Treated IP with Dapto based on previous cultures. Ucult final read with Ecoli and sensitivity to cefdinir. Patient will discharge to [facility] for continued rehab for weakness on cefdinir. Patient can discharge once potassium has been replenished. Discharge Note New Diagnosis: UTI New Medications: Cefdinir I spent 35 minutes [id number] with the patient on the day of discharge performing discharge exam, discussing hospital stay and discharge instructions with patient and caregivers, preparation of discharge records, prescriptions & referral forms and addressing any questions/concerns the patient had as documented above. - Vitals & Intake/Output Vital Signs: Vital Signs Temperature 98.2 F 06/13/24 07:00 Pulse Rate 94 H 06/13/24 07:00 Respiratory Rate 16 06/13/24 07:00 Blood Pressure 132/84 06/13/24 07:00 O2 Sat by Pulse Oximetry 94 L 06/13/24 07:00 Intake & Output: Intake & Output 06/10/24 06/11/24 06/12/24 06/13/24 11:59 11:59 11:59 11:59 Intake Total 1823 3357 1083 Output Total 250 250 Balance 1823 3107 833 Weight 55.4 kg 52.4 kg - Lab Result Diagrams: 06/13/24 05:13 06/13/24 05:13 Lab Results-Last 24 Hrs: Lab Results-Last 24 Hours 06/13/24 06/13/24 06/13/24 Range/Units 05:13 05:13 05:49 WBC 9.4 (3.98-10.04) x10^3/uL RBC 3.09 L (3.93-5.22) x10^6/uL Hgb 9.5 L (11.2-15.7) g/dL Hct 29.9 L (34.1-44.9) % MCV 96.8 H (79.4-94.8) fL MCH 30.7 (25.6-32.2) pg MCHC 31.8 L (32.2-35.5) g/dL RDW 14.7 H (11.7-14.4) % Plt Count 428 H (182-369) x10^3/uL MPV 9.2 L (9.4-12.3) fL Gran % 66.0 (34.0-71.1) % Immature Gran % (Auto) 0.7 H (0.001-0.429) % Nucleat RBC Rel Count 0.0 (0.00-0.2) % Eos # (Auto) 0.41 H (0.04-0.36) x10^3/uL Immature Gran # (Auto) 0.07 H (0.001-0.031) x10^3u/L Absolute Lymphs (auto) 1.64 (1.18-3.74) x10^3/uL Absolute Monos (auto) 1.05 H (0.24-0.86) x10^3/uL Absolute Nucleated RBC 0.00 (0.00-0.012) x10^3u/L Lymphocytes % 17.4 L (19.3-51.7) % Monocytes % 11.1 (4.7-12.5) % Eosinophils % 4.3 (0.7-5.8) % Basophils % 0.5 (0.1-1.2) % Absolute Granulocytes 6.22 H (1.56-6.13) x10^3/uL Basophils # 0.05 (0.01-0.08) x10^3/uL Sodium 138 (135-145) mmol/L Potassium 3.0 L* (3.5-5.1) mmol/L Chloride 108 H (98-107) mmol/L Carbon Dioxide 20 L (22-30) mmol/L Anion Gap 12.4 (5-15) MEQ/L BUN 5 L (7-17) mg/dL Creatinine 0.73 (0.52-1.04) mg/dL Estimated GFR 86.2 ML/MIN Glucose 95 (74-106) mg/dL Calcium 8.2 L (8.4-10.2) mg/dL Magnesium 1.6 (1.6-2.3) mg/dL Total Bilirubin 0.40 (0.2-1.3) mg/dL AST 32 (14-36) U/L ALT 25 (0-35) U/L Alkaline Phosphatase 99 (38-126) U/L Serum Total Protein 6.0 L (6.3-8.2) g/dL Albumin 3.0 L (3.5-5.0) g/dL Micro Results-Entire Visit: Microbiology 06/10/24 13:32 Urine Culture - Final Catherized Escherichia Coli 06/11/24 12:01 Blood Culture - Preliminary Blood 06/11/24 11:55 Blood Culture - Preliminary Blood - Procedures and Test Procedures and Tests throughout Hospitalization: Therapy Orders & Screens 06/10/24 20:38 PT Eval & Treat ( Order) ONCE Reason for Eval:: gait imbalance Diagnosis: Generalized weakness, urinary tract infection, Discharge Exam General Appearance: no apparent distress Neurologic Exam: alert, oriented x 3, cooperative Eye Exam: PERRL Ears, Nose, Throat Exam: normal ENT inspection Neck Exam: normal inspection Respiratory Exam: normal breath sounds, lungs clear Cardiovascular Exam: regular rate/rhythm, normal heart sounds Gastrointestinal/Abdomen Exam: soft, normal bowel sounds Pelvic Exam: deferred Rectal Exam: deferred Back Exam: normal inspection Extremity Exam: normal inspection Skin Exam: normal color Final Diagnosis/Problem List - Final Discharge Diagnosis/Problem (1) Clostridium difficile diarrhea Current Visit: Yes Status: Ruled-out Code(s): A04.72 - ENTEROCOLITIS D/T CLOSTRIDIUM DIFFICILE, NOT SPCF RECUR (2) UTI (urinary tract infection) Current Visit: Yes Status: Acute Code(s): N39.0 - URINARY TRACT INFECTION, SITE NOT SPECIFIED (3) Generalized weakness Current Visit: Yes Status: Chronic Code(s): R53.1 - WEAKNESS (4) HTN (hypertension) Current Visit: No Status: Chronic Code(s): I10 - ESSENTIAL (PRIMARY) HYPERTENSION (5) Leukocytosis Current Visit: Yes Status: Resolved Code(s): D72.829 - ELEVATED WHITE BLOOD CELL COUNT, UNSPECIFIED (6) Hypokalemia Current Visit: Yes Status: Acute Code(s): E87.6 - HYPOKALEMIA - Discharge Discharge Date: 06/13/24 Disposition: DC TO ANY "OTHER" LONG TERM Condition: Stable Prescriptions: New Cefdinir 300 mg PO BID 10 Days #20 cap Continue Amitriptyline HCl 200 mg PO QHS Cholecalciferol (Vitamin D3) [Vitamin D3] 2,000 unit PO DAILY hydroCHLOROthiazide [Hydrochlorothiazide] 12.5 mg PO DAILY Metoprolol Succinate 50 mg [Toprol Xl 50 MG] See Rx Instructions .ROUTE .COMPLEX Escitalopram Oxalate [Lexapro] 10 mg PO DAILY Tramadol HCl 50 mg [Ultram 50 mg] 50 mg PO DAILY PRN PRN Reason: Pain Losartan Potassium [Cozaar] 25 mg PO DAILY Additional Instructions: LONG TERM ORDERS: ADMIT TO [facility] FACILITY ISOLATION PER SNF POLICY- HX VRE IN URINE REGULAR DIET PT/OT EVAL AND TREAT SEE ATTACHED MED LIST Follow up with: YOUSUF ZHANG MD [Primary Care Provider] -
[2024-06-13 11:49] VITALS: BP 139/104; PULSE 112; RESP 20; TEMP 97.9; O2SAT 95
[2024-06-13] MEDS: OMNICEF 300 MG PO SCH (12:33)
== END 2024-06-13 13:18 ==
LOC: ED 11:19 → MED SURG 18:33
PROVIDERS: ADMIT Internal Medicine; ATTEND Internal Medicine
DX: A04.72 Enterocolitis due to Clostridium difficile, not specified as recurrent (principal); N39.0 Urinary tract infection, site not specified; B96.20 Unspecified Escherichia coli [E. coli] as the cause of diseases classified elsewhere; R53.1 Weakness; I10 Essential (primary) hypertension; D72.829 Elevated white blood cell count, unspecified; E87.6 Hypokalemia; E78.5 Hyperlipidemia, unspecified; M54.9 Dorsalgia, unspecified; Z79.899 Other long term (current) drug therapy
CPT/HCPCS: 36415; 70450; 71045; 80053; 80069; 81001; 82550; 83735; 83880; 84132; 84484; 85025; 87040; 87045; 87046; 87077; 87086; 87186; 87427; 87493; 93005; 93041; 93268; 94760; 97110; 97161; 99285; G0378; P9612; Q3014; 99284; J0696; J0878; J1650; A9270-GY

== ENCOUNTER 2024-07-02 11:44 | Observation (INO) | payer MEDICARE ==
--- NOTE | 2024-07-02 12:38 | ERPHSYRPT ---
- History of Present Illness Time Seen by Provider: 07/02/24 12:15 Source: patient Exam Limitations: no limitations Patient Subjective Stated Complaint: EMS states that pt has been sitting in a chair since monday. EMS states told them that pt is weak Triage Nursing Assessment: pt came into the er via ambulance; pt is axo x3; c/o weakness; pt denies pain; pt is incontent of bowel and urine; skin PDW; mucus membrane pink, dry; abd flat, nontender, active bowel sounds in all quads; diarrhea present in depend; no respiratory distress present; tachycardic; stage 1 pressure ulcer to coccyx; blood sugar on arrival 118 Physician History: Patient is a 73-year-old female presents to our ED via EMS for evaluation of generalized weakness. EMS reports that patient has been sitting in a chair x 3 days. Patient appears confused. Patient is not consistent with her answers to basic questions. Patient unable to state why she is here in the emergency department today. She is incontinent of urine and bowel. Patient denies pain. Symptoms are mild to moderate in intensity. No specific worsening or improving factors. HPI limited secondary to mental status. Portions of this note were created with voice recognition technology. There may be grammatical, spelling, punctuation or sound alike errors Timing/Duration: today Severity: moderate Associated Symptoms: denies symptoms Allergies/Adverse Reactions: carbamazepine [From Tegretol] Allergy (Verified 07/02/24 12:13) pt can't remember what this med does to her, but also and adverse rx diazepam [From Valium] Adverse Reaction (Verified 07/02/24 12:13) severe confusion hydrocodone Adverse Reaction (Verified 07/02/24 12:13) severe confusion Home Medications: Amitriptyline HCl 200 mg PO QHS 06/16/15 [History] Cholecalciferol (Vitamin D3) [Vitamin D3] 1,000 unit PO DAILY 01/26/17 [History] hydroCHLOROthiazide [Hydrochlorothiazide] 12.5 mg PO DAILY 11/01/20 [History] Metoprolol Succinate 50 mg [Toprol Xl 50 MG] 50 mg PO DAILY 06/01/21 [History] Escitalopram Oxalate [Lexapro] 10 mg PO DAILY 06/10/24 [History] Tramadol HCl 50 mg [Ultram 50 mg] 50 mg PO DAILY PRN 06/10/24 [History] Nitroglycerin 0.4 mg Tablet [Nitrostat 0.4 MG Tablet] 0.4 mg SL Q5MIN PRN MR X 3 PRN 07/02/24 [History] Hx Tetanus, Diphtheria Vaccination/Date Given: (unknown) Hx Influenza Vaccination/Date Given: (unknown) Hx Pneumococcal Vaccination/Date Given: (unknown) Travel Risk - International Travel Have you traveled outside of the country in past 3 weeks: No - Emerging Infectious Disease Are you exhibiting symptoms associated with any current EIDs: No - Review of Systems Constitutional: No Symptoms, No Fever, No Chills Eyes: No Symptoms Ears, Nose, & Throat: No Symptoms Respiratory: No Symptoms, No Cough, No Dyspnea Cardiac: No Symptoms, No Chest Pain, No Edema, No Syncope Abdominal/Gastrointestinal: No Symptoms, No Abdominal Pain, No Nausea, No Vo miting, No Diarrhea Genitourinary Symptoms: No Symptoms, No Dysuria Musculoskeletal: No Symptoms, No Back Pain, No Neck Pain Skin: No Symptoms, No Rash Neurological: No Symptoms, No Dizziness, No Focal Weakness, No Sensory Changes Psychological: No Symptoms Endocrine: No Symptoms Hematologic/Lymphatic: No Symptoms Immunological/Allergic: No Symptoms All Other Systems: Reviewed and Negative - Past Medical History Pertinent Past Medical History: Yes Neurological History: Migraines ENT History: Cataracts Cardiac History: Angina, Hypertension Respiratory History: No Pertinent History Endocrine Medical History: No Pertinent History Musculoskeletal History: Osteoporosis, Other GI Medical History: Irritable Bowel History: No Pertinent History Psycho-Social History: Anxiety, Depression Female Reproductive Disorders: Abnormal Uterine Bleeding Other Medical History: PT HAS BEEN TO FOR A CONSULTATION, NOT A CANDIDATE FOR SURGERY DUE TO OSTEOPOROSIS. NO COMPRESSION FRACTURES NOTED. PT SEES DR. PAYNE AND NOTES HER HEART IS FINE AT THIS TIME, SEES HIM EVERY 6 MONTHS. hx of scoliosis, Sees Dr Mason at our pain clinic - Past Surgical History Past Surgical History: Yes Neuro Surgical History: No Pertinent History Cardiac: No Pertinent History Respiratory: No Pertinent History Gastrointestinal: No Pertinent History Genitourinary: No Pertinent History Musculoskeletal: Orthopedic Surgery Female Surgical History: Section, Hysterectomy Other Surgical History: bilateral jaw reconstruction 1983, shoulder left fx Jan 2018,steriod inj in back Significant Family History: cancer - Social History Smoking Status: Former smoker Exposure to second hand smoke: No Drug Use: none - Social Determinants of Health Will the patient participate in the screening: Yes Do you worry about a steady place to live?: No Do you have any problems with any of the following?: No known problems In the past 12 months,have you had to go without utilities?: No Transportation Issues: No Has anyone in your support network made you feel unsafe?: No Have you or anyone in your house had to go w/o enough food: No - Nursing Vital Signs Nursing Vital Signs: Initial Vital Signs Temperature 100.1 F 07/02/24 11:45 Pulse Rate 114 H 07/02/24 11:45 Respiratory Rate 16 07/02/24 11:45 Blood Pressure 109/75 07/02/24 11:45 O2 Sat by Pulse Oximetry 95 07/02/24 11:45 Pain Scale Pain Intensity 3 - Physical Exam General Appearance: no apparent distress, alert Eye Exam: PERRL/EOMI, eyes nml inspection Ears, Nose, Throat Exam: normal ENT inspection, pharynx normal, moist mucous membranes Neck Exam: normal inspection, non-tender, supple, full range of motion Respiratory Exam: normal breath sounds, lungs clear, airway intact, No respirato ry distress Cardiovascular Exam: regular rate/rhythm, normal heart sounds, normal peripheral pulses Gastrointestinal/Abdomen Exam: soft, normal bowel sounds, No tenderness, No mass Back Exam: normal inspection, normal range of motion, No CVA tenderness, No vertebral tenderness Extremity Exam: normal inspection, normal range of motion, pelvis stable Neurologic Exam: alert, oriented x 3, cooperative, normal mood/affect, sensation nml, No motor deficits Skin Exam: normal color, warm, dry, No rash Lymphatic Exam: No adenopathy SpO2 Interpretation: normal SpO2: 95 O2 Delivery: Room Air - Course Nursing assessment & vital signs reviewed: Yes EKG Interpreted by Me: RATE ([id number]), Sinus Tach, NORMAL AXIS, NORMAL INTERVALS, NORMAL QRS - Radiology Exams Chest X-ray Interpretation: Teleradiologist Report (No new cardiopulmonary abnormalities) - CT Exams Head CT Interpretation: Tele-radiologist Report (Nonacute senile brain) Ordered Tests: Active Orders 24 hr Category Date Time Status Division Leader STAT Care 07/02/24 12:40 Active EKG-ER Only STAT Care 07/02/24 12:39 Active IV Insertion STAT Care 07/02/24 12:39 Active Pulse Oximetry (ED) STAT Care 07/02/24 12:39 Active Tele-Health Consult ROUTINE Cons 07/02/24 14:31 Active ABDOMEN AND PELVIS W/0 CONTRAS [CT] Stat Exams 07/02/24 14:35 Completed CHEST 1 VIEW (PORTABLE) Stat Exams 07/02/24 12:47 Completed HEAD WITHOUT CONTRAST [CT] Stat Exams 07/02/24 12:40 Completed ACETAMINOPHEN Stat Lab 07/02/24 13:14 Completed BLOOD CULTURE Stat Lab 07/02/24 12:46 Received CBC W DIFF Stat Lab 07/02/24 13:14 Completed CMP Stat Lab 07/02/24 13:14 Completed CULTURE,URINE Stat Lab 07/02/24 12:30 Received ETHYL ALCOHOL Stat Lab 07/02/24 13:14 Completed Lactic Acid Stat Lab 07/02/24 13:17 Completed Lactic Acid Stat Lab 07/02/24 15:37 Stop Req MAGNESIUM Stat Lab 07/02/24 13:14 Completed POCT GLUCOSE Stat Lab 07/02/24 12:09 Completed SALICYLATE Stat Lab 07/02/24 13:14 Completed TROPONIN Q4H Lab 07/02/24 13:14 Completed TROPONIN Q4H Lab 07/02/24 17:05 Completed TROPONIN Q4H Lab 07/02/24 20:45 Ordered UA W/RFX UR CULTURE Stat Lab 07/02/24 12:30 Completed Urine Triage Profile Stat Lab 07/02/24 12:46 Completed Transfer Order Routine Transfer 07/02/24 Ordered Medication Summary Generic Name Dose Route Start Last Admin Trade Name Nelson PRN Reason Stop Dose Admin Levofloxacin/Dextrose 500 mg in 100 mls @ 100 mls/hr 07/02/24 18:11 Levofloxacin 500mg/100ml D5w IV 07/02/24 19:10 STAT STA Metronidazole 500 mg in 100 mls @ 200 mls/hr 07/02/24 18:11 Flagyl 500 Mg Ivpb IV 07/02/24 18:40 STAT STA Lab/Rad Data: Laboratory Result Diagrams 07/02/24 13:14 07/02/24 13:14 Laboratory Results 07/02/24 07/02/24 07/02/24 Range/Units 17:05 13:20 13:17 WBC (3.98-10.04) x10^3/uL RBC (3.93-5.22) x10^6/uL Hgb (11.2-15.7) g/dL Hct (34.1-44.9) % MCV (79.4-94.8) fL MCH (25.6-32.2) pg MCHC (32.2-35.5) g/dL RDW (11.7-14.4) % Plt Count (182-369) x10^3/uL MPV (9.4-12.3) fL Gran % (34.0-71.1) % Immature Gran % (Auto) (0.001-0.429) % Nucleat RBC Rel Count (0.00-0.2) % Eos # (Auto) (0.04-0.36) x10^3/uL Immature Gran # (Auto) (0.001-0.031) x10^3u/L Absolute Lymphs (auto) (1.18-3.74) x10^3/uL Absolute Monos (auto) (0.24-0.86) x10^3/uL Absolute Nucleated RBC (0.00-0.012) x10^3u/L Lymphocytes % (19.3-51.7) % Monocytes % (4.7-12.5) % Eosinophils % (0.7-5.8) % Basophils % (0.1-1.2) % Absolute Granulocytes (1.56-6.13) x10^3/uL Basophils # (0.01-0.08) x10^3/uL Sodium (135-145) mmol/L Potassium (3.5-5.1) mmol/L Chloride (98-107) mmol/L Carbon Dioxide (22-30) mmol/L Anion Gap (5-15) MEQ/L BUN (7-17) mg/dL Creatinine (0.52-1.04) mg/dL Estimated GFR ML/MIN Glucose (74-106) mg/dL POC Glucometer (74 to 106) mg/dL Lactic Acid 1.9 (0.4-2.0) Calcium (8.4-10.2) mg/dL Magnesium (1.6-2.3) mg/dL Total Bilirubin (0.2-1.3) mg/dL AST (14-36) U/L ALT (0-35) U/L Alkaline Phosphatase (38-126) U/L Troponin I 0.015 (0.000-0.033) ng/mL Serum Total Protein (6.3-8.2) g/dL Albumin (3.5-5.0) g/dL Urine Color (Yellow) Urine Appearance (Clear) Urine pH (4.6-8.0) Ur Specific [place] (1.005-1.030) Urine Protein (Negative) Urine Glucose (UA) (Negative) mg/dL Urine Ketones (Negative) Urine Blood (Negative) Urine Nitrite (Negative) Urine Bilirubin (Negative) Urine Urobilinogen (0.2) mg/dL Ur Leukocyte Esterase (Negative) U Hyaline Cast (Auto) (0-2) /LPF Urine Microscopic RBC (0-5) /HPF Urine Microscopic WBC (0-5) /HPF Ur Epithelial Cells (None Seen) /HPF Urine Bacteria (None Seen) /HPF Urine Culture Reflexed (NO) Salicylates (2-20) mg/dL Urine Opiates Level (NEGATIVE) Ur Methadone (NEGATIVE) Acetaminophen (10-30) ug/ml Urine Barbiturates (NEGATIVE) Ur Phencyclidine (PCP) (NEGATIVE) Urine Amphetamine (NEGATIVE) U Benzodiazepine Level (NEGATIVE) Urine Cocaine (NEGATIVE) Urine Marijuana (THC) (NEGATIVE) Ethyl Alcohol (0-10) mg/dL Influenza Type A Ag NEGATIVE (NEGATIVE) Influenza Type B Ag NEGATIVE (NEGATIVE) RSV (PCR) NEGATIVE (NEGATIVE) SARS-CoV-2 (PCR) NEGATIVE (NEGATIVE) 07/02/24 07/02/24 07/02/24 Range/Units 13:14 13:14 13:14 WBC 22.5 H (3.98-10.04) x10^3/uL RBC 3.65 L (3.93-5.22) x10^6/uL Hgb 11.2 (11.2-15.7) g/dL Hct 34.3 (34.1-44.9) % MCV 94.0 (79.4-94.8) fL MCH 30.7 (25.6-32.2) pg MCHC 32.7 (32.2-35.5) g/dL RDW 14.9 H (11.7-14.4) % Plt Count 717 H (182-369) x10^3/uL MPV 8.9 L (9.4-12.3) fL Gran % 82.6 H (34.0-71.1) % Immature Gran % (Auto) 0.4 (0.001-0.429) % Nucleat RBC Rel Count 0.0 (0.00-0.2) % Eos # (Auto) 0.03 L (0.04-0.36) x10^3/uL Immature Gran # (Auto) 0.08 H (0.001-0.031) x10^3u/L Absolute Lymphs (auto) 1.74 (1.18-3.74) x10^3/uL Absolute Monos (auto) 2.00 H (0.24-0.86) x10^3/uL Absolute Nucleated RBC 0.00 (0.00-0.012) x10^3u/L Lymphocytes % 7.7 L (19.3-51.7) % Monocytes % 8.9 (4.7-12.5) % Eosinophils % 0.1 L (0.7-5.8) % Basophils % 0.3 (0.1-1.2) % Absolute Granulocytes 18.63 H (1.56-6.13) x10^3/uL Basophils # 0.06 (0.01-0.08) x10^3/uL Sodium 138 (135-145) mmol/L Potassium 4.1 (3.5-5.1) mmol/L Chloride 102 (98-107) mmol/L Carbon Dioxide 23 (22-30) mmol/L Anion Gap 17.1 H (5-15) MEQ/L BUN 21 H (7-17) mg/dL Creatinine 0.86 (0.52-1.04) mg/dL Estimated GFR 70.9 ML/MIN Glucose 111 H (74-106) mg/dL POC Glucometer (74 to 106) mg/dL Lactic Acid (0.4-2.0) Calcium 9.5 (8.4-10.2) mg/dL Magnesium 1.8 (1.6-2.3) mg/dL Total Bilirubin 0.60 (0.2-1.3) mg/dL AST 26 (14-36) U/L ALT 20 (0-35) U/L Alkaline Phosphatase 92 (38-126) U/L Troponin I 0.015 (0.000-0.033) ng/mL Serum Total Protein 7.1 (6.3-8.2) g/dL Albumin 3.8 (3.5-5.0) g/dL Urine Color (Yellow) Urine Appearance (Clear) Urine pH (4.6-8.0) Ur Specific [place] (1.005-1.030) Urine Protein (Negative) Urine Glucose (UA) (Negative) mg/dL Urine Ketones (Negative) Urine Blood (Negative) Urine Nitrite (Negative) Urine Bilirubin (Negative) Urine Urobilinogen (0.2) mg/dL Ur Leukocyte Esterase (Negative) U Hyaline Cast (Auto) (0-2) /LPF Urine Microscopic RBC (0-5) /HPF Urine Microscopic WBC (0-5) /HPF Ur Epithelial Cells (None Seen) /HPF Urine Bacteria (None Seen) /HPF Urine Culture Reflexed (NO) Salicylates < 1.0 L (2-20) mg/dL Urine Opiates Level (NEGATIVE) Ur Methadone (NEGATIVE) Acetaminophen < 10 L (10-30) ug/ml Urine Barbiturates (NEGATIVE) Ur Phencyclidine (PCP) (NEGATIVE) Urine Amphetamine (NEGATIVE) U Benzodiazepine Level (NEGATIVE) Urine Cocaine (NEGATIVE) Urine Marijuana (THC) (NEGATIVE) Ethyl Alcohol < 10 (0-10) mg/dL Influenza Type A Ag (NEGATIVE) Influenza Type B Ag (NEGATIVE) RSV (PCR) (NEGATIVE) SARS-CoV-2 (PCR) (NEGATIVE) 07/02/24 07/02/24 07/02/24 Range/Units 12:46 12:30 12:09 WBC (3.98-10.04) x10^3/uL RBC (3.93-5.22) x10^6/uL Hgb (11.2-15.7) g/dL Hct (34.1-44.9) % MCV (79.4-94.8) fL MCH (25.6-32.2) pg MCHC (32.2-35.5) g/dL RDW (11.7-14.4) % Plt Count (182-369) x10^3/uL MPV (9.4-12.3) fL Gran % (34.0-71.1) % Immature Gran % (Auto) (0.001-0.429) % Nucleat RBC Rel Count (0.00-0.2) % Eos # (Auto) (0.04-0.36) x10^3/uL Immature Gran # (Auto) (0.001-0.031) x10^3u/L Absolute Lymphs (auto) (1.18-3.74) x10^3/uL Absolute Monos (auto) (0.24-0.86) x10^3/uL Absolute Nucleated RBC (0.00-0.012) x10^3u/L Lymphocytes % (19.3-51.7) % Monocytes % (4.7-12.5) % Eosinophils % (0.7-5.8) % Basophils % (0.1-1.2) % Absolute Granulocytes (1.56-6.13) x10^3/uL Basophils # (0.01-0.08) x10^3/uL Sodium (135-145) mmol/L Potassium (3.5-5.1) mmol/L Chloride (98-107) mmol/L Carbon Dioxide (22-30) mmol/L Anion Gap (5-15) MEQ/L BUN (7-17) mg/dL Creatinine (0.52-1.04) mg/dL Estimated GFR ML/MIN Glucose (74-106) mg/dL POC Glucometer 118 H (74 to 106) mg/dL Lactic Acid (0.4-2.0) Calcium (8.4-10.2) mg/dL Magnesium (1.6-2.3) mg/dL Total Bilirubin (0.2-1.3) mg/dL AST (14-36) U/L ALT (0-35) U/L Alkaline Phosphatase (38-126) U/L Troponin I (0.000-0.033) ng/mL Serum Total Protein (6.3-8.2) g/dL Albumin (3.5-5.0) g/dL Urine Color Yellow (Yellow) Urine Appearance Clear (Clear) Urine pH 6.5 (4.6-8.0) Ur Specific [place] 1.020 (1.005-1.030) Urine Protein Trace A (Negative) Urine Glucose (UA) Negative (Negative) mg/dL Urine Ketones Trace A (Negative) Urine Blood Negative (Negative) Urine Nitrite Negative (Negative) Urine Bilirubin Negative (Negative) Urine Urobilinogen 0.2 (0.2) mg/dL Ur Leukocyte Esterase Negative (Negative) U Hyaline Cast (Auto) NONE SEEN (0-2) /LPF Urine Microscopic RBC 0-2 (0-5) /HPF Urine Microscopic WBC 0-2 (0-5) /HPF Ur Epithelial Cells None Seen (None Seen) /HPF Urine Bacteria None Seen (None Seen) /HPF Urine Culture Reflexed NO (NO) Salicylates (2-20) mg/dL Urine Opiates Level NEGATIVE (NEGATIVE) Ur Methadone NEGATIVE (NEGATIVE) Acetaminophen (10-30) ug/ml Urine Barbiturates NEGATIVE (NEGATIVE) Ur Phencyclidine (PCP) NEGATIVE (NEGATIVE) Urine Amphetamine NEGATIVE (NEGATIVE) U Benzodiazepine Level NEGATIVE (NEGATIVE) Urine Cocaine NEGATIVE (NEGATIVE) Urine Marijuana (THC) NEGATIVE (NEGATIVE) Ethyl Alcohol (0-10) mg/dL Influenza Type A Ag (NEGATIVE) Influenza Type B Ag (NEGATIVE) RSV (PCR) (NEGATIVE) SARS-CoV-2 (PCR) (NEGATIVE) - Progress Progress: improved Progress Note: In light of patient's confusion leukocytosis fever we considered a lumbar puncture. However patient has no headache no neck pain no photophobia. MAURIZIO Street reports that patient frequently becomes confused when she has an infection in her body most commonly a urinary tract infection. We identified a rectal infection with associated fat stranding that explains a leukocytosis. After discussion with neurologist he states that if no plausible cause of her leukocytosis is found a lumbar puncture should be considered. However we have found a possible cause of patient's leukocytosis and fever. We discussed a lumbar puncture with patient. She declined a lumbar puncture. Risks and benefits discussed. at bedside for discussion. 07/02/24 17:[address] Perkins who advised antibiotics. 07/02/24 18:10 Case discussed with hospitalist who accepts admission to observation. I spoke to Dr. Deonna Kaplan general surgeon who will take consultation during this hospital stay. I spoke to Dr. Kaplan at 6:30 PM. Plan of care discussed with patient and her was at the bedside. They agree to admission to [facility] for further evaluation and treatment. Portions of this note were created with voice recognition technology. There may be grammatical, spelling, punctuation or sound alike errors Complexity of problem addressed is moderate acute complicated. No critical care time. Complex of data reviewed and analyzed is sensitive. Test ordered test reviewed results analyzed and correlated clinically with history and physical exam. Management discussed with general surgery and hospitalist. Risk of complication and or risk of morbidity/mortality of patient management is high. Patient requires hospitalization for further evaluation and treatment.. Vital stable. Time spent admit patient approximately 15 minutes. Plan of care established for shared decision making. No social determinants of health present to impede follow-up. Portions of this note were created with voice recognition technology. There may be grammatical, spelling, punctuation or sound alike errors 07/02/24 18:38 Counseled pt/family regarding: lab results, diagnosis, rad results - Departure Departure Disposition: Observation Clinical Impression: Generalized weakness, Confusion, Fever, Leukocytosis, Proctitis Condition: Stable Critical Care Time: No Referrals: YOUSUF ZHANG MD [Primary Care Provider] - Follow up/PCP as directed
[2024-07-02 12:52] LABS: Appearance Clear (Clear); Bacteria None Seen /HPF (None Seen); Bilirubin Negative (Negative); Blood Negative (Negative); Epithelial Cells None Seen /HPF (None Seen); Glucose, Urine Negative (Negative); Hyaline Casts NONE SEEN /LPF (0-2); Ketones Trace (Negative); Leukocyte Esterase Negative (Negative); Nitrite Negative (Negative); Ph 6.5 (4.6-8.0); Protein,Urine Dip Trace (Negative); RBC 0-2 /HPF (0-5); Urobilinogen 0.2 mg/dL (0.2); WBC 0-2 /HPF (0-5)
--- NOTE | 2024-07-02 13:12 | XRAY ---
Indication: Fever. Comparison: June 10, 2024 Portable chest demonstrates grossly stable minimal bibasilar subsegmental atelectasis/scarring, right perihilar calcified granuloma, and tiny left effusion. Heart not enlarged. No new cardiopulmonary abnormalities.
--- NOTE | 2024-07-02 13:16 | XRAY ---
Indication: Confusion. Multiple contiguous axial images obtained through the head without contrast. Comparison: CTA head April 20, [address] head without contrast June 10, 2024 Again age-appropriate global atrophy and mild periventricular degenerative micro-ischemia. No acute intracranial hemorrhage, abnormal extra-axial fluid collection, or mass effect. Fourth ventricle is midline without hydrocephalus people bony calvarium intact. Visualized paranasal sinuses and mastoid air cells are clear. Impression: Again nonacute senile brain.
[2024-07-02 13:43] LABS: Absolute Neutrophil Ct (ANC) 18.63 x10^3/uL (1.56-6.13); BASOPHIL % 0.3 % (0.1-1.2); Basophil (Absolute #) 0.06 x10^3/uL (0.01-0.08); Eosinophil % 0.1 % (0.7-5.8); Eosinophil (Absolute #) 0.03 x10^3/uL (0.04-0.36); Hematocrit 34.3 % (34.1-44.9); Hemoglobin 11.2 g/dL (11.2-15.7); IMMATURE GRAN # 0.08 x10^3u/L (0.001-0.031); IMMATURE GRAN % 0.4 % (0.001-0.429); Lymphocyte (Absolute #) 1.74 x10^3/uL (1.18-3.74); Lymphocytes % 7.7 % (19.3-51.7); Mean Corpuscular Hemoglobin 30.7 pg (25.6-32.2); Mean Corpuscular Hgb Concent. 32.7 g/dL (32.2-35.5); Mean Platelet Volume 8.9 fL (9.4-12.3); Monocytes % 8.9 % (4.7-12.5); Neutrophil % 82.6 % (34.0-71.1); Platelet Count 717 x10^3/uL (182-369); Red Blood Count 3.65 x10^6/uL (3.93-5.22); Red Cell Distribution Width 14.9 % (11.7-14.4); White Blood Count 22.5 x10^3/uL (3.98-10.04)
[2024-07-02 13:52] LABS: ACETAMINOPHEN < 10 ug/ml (10-30); ALBUMIN 3.8 g/dL (3.5-5.0); ALKALINE PHOSPHATASE 92 U/L (38-126); ANION GAP 17.1 MEQ/L (5-15); BLOOD UREA NITROGEN 21 mg/dL (7-17); CHLORIDE 102 mmol/L (98-107); Calcium 9.5 mg/dL (8.4-10.2); Carbon Dioxide 23 mmol/L (22-30); Creatinine 1 0.86 mg/dL (0.52-1.04); EST GLOMERULAR FILTRATION RATE 70.9 ML/MIN; ETHYL ALCOHOL < 10 mg/dL (0-10); Glucose 111 mg/dL (74-106); MAGNESIUM 1.8 mg/dL (1.6-2.3); Potassium 4.1 mmol/L (3.5-5.1); SALICYLATE < 1.0 mg/dL (2-20); SGOT/AST 26 U/L (14-36); SGPT/ALT 20 U/L (0-35); SODIUM 138 mmol/L (135-145); Total Protein 7.1 g/dL (6.3-8.2)
[2024-07-02 14:16] LABS: INFLUENZA A NEGATIVE (NEGATIVE); INFLUENZA B NEGATIVE (NEGATIVE); RESPIRATORY SYNCTIAL VIRUS NEGATIVE (NEGATIVE); SARS-CoV-2 Xpert Express NEGATIVE (NEGATIVE)
[2024-07-02 14:37] LABS: Amphetamine,Urine NEGATIVE (NEGATIVE); Barbiturate,Urine NEGATIVE (NEGATIVE); Benzodiazepine,Urine NEGATIVE (NEGATIVE); Cocaine,Urine NEGATIVE (NEGATIVE); Methadone,Urine NEGATIVE (NEGATIVE); Opiate,Urine NEGATIVE (NEGATIVE); PCP,Urine NEGATIVE (NEGATIVE); THC,Urine NEGATIVE (NEGATIVE)
--- NOTE | 2024-07-02 16:39 | XRAY ---
Indication: Pain. Multiple contiguous axial images obtained through the abdomen and pelvis without contrast. Comparison: April 20, 2024 Study is degraded by respiration artifact. Lung bases again demonstrates medial right lower lobe subsegmental atelectasis/scarring. No new infiltrate or effusion. Heart not enlarged. Noncontrasted stomach and bowel loops appear nonobstructed. There is now mild diffuse scattered colonic fecal debris throughout. Rectum demonstrates new mild circumferential wall thickening and perirectal stranding favoring proctitis. Again hysterectomy. No free fluid/air. Remaining liver, gallbladder, pancreas, spleen, adrenal glands, kidneys, ureters, and bladder are unremarkable for noncontrast exam. Again moderate arteriosclerotic disease with stable 4 cm distal AAA. 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 Impression: 1. Diffuse respiration artifact. 2. New CT findings favoring noncomplicated proctitis. 3. New mild diffuse fecal stasis. 4. Again chronic findings including right lower lobe subsegmental atelectasis/scarring, arteriosclerotic disease with distal AAA, and chronic bony findings.
[2024-07-02] MEDS ORDERED: FLAGYL 500 MG IVPB 500 MG/100 ML BAG IV ONE (18:45)
[2024-07-02] MEDS: FLAGYL 500 MG IVPB 500 MG/100 ML BAG IV STA (18:46)
[2024-07-02] MEDS ORDERED: Levofloxacin 500MG/100ML D5W 500 MG/100 ML BAG IV ONE (19:18)
[2024-07-02] MEDS: Levofloxacin 500MG/100ML D5W 500 MG/100 ML BAG IV STA (19:22)
[2024-07-02] MEDS ORDERED: TYLENOL 325 MG PO PRN (21:12)
--- NOTE | 2024-07-02 21:39 | PCM.HP ---
History of Present Illness - Chief Complaint Chief Complaint: confusion Date: 07/02/24 History of Present Illness: 73-year-old woman with history of hypertension, depression, and possible early dementia, who presents from home with confusion. Patient has history of frequent admissions with altered mentation, usually secondary to infection, typically UTI. Note, history is currently limited as patient does not recall the events that led to her hospitalization, but per ED report, has been noticed that patient had been sitting in the chair since Monday, not really responsive. Patient states that she often has episodes of not responding to people on a particular when she has UTI. She perseverates 2 degree about her prior UTI, thinking that is never really cleared, and manages this multiple times during her interview. She is unable to describe particularly why her brought her in today, mentioning again the UTI few months ago and these repeat episodes of decreased responsiveness. Throughout however, she is talkative engaged, although forgetful regarding recent events. However, she denies any fever, headache, chills, sore throat, chest pain, dyspnea, abdominal pain, nausea, diarrhea, or dysuria. Denies any rashes or wounds. Notes some intermittent constipation, but notes that she has had 1 normal bowel movement since arriving to the ED, that was nonpainful. Denies any hematochezia or melena. However, patient and I asked her about pain in the belly, she would initially say no, and then try to think really hard for a long time, but then get confused and talk about her prior UTI again. - Review of Systems All Other Systems: Reviewed and Negative (Although unclear how accurate answers were given patient's mental status) Medications & Allergies Home Medications: Home Medication List Amitriptyline HCl 200 mg PO QHS 06/16/15 [History Confirmed 07/02/24] Cholecalciferol (Vitamin D3) [Vitamin D3] 1,000 unit PO DAILY 01/26/17 [History Confirmed 07/02/24] hydroCHLOROthiazide [Hydrochlorothiazide] 12.5 mg PO DAILY 11/01/20 [History Confirmed 07/02/24] Metoprolol Succinate 50 mg [Toprol Xl 50 MG] 50 mg PO BID 06/01/21 [History Confirmed 07/02/24] Escitalopram Oxalate [Lexapro] 10 mg PO DAILY 06/10/24 [History Confirmed 07/02/24] Tramadol HCl 50 mg [Ultram 50 mg] 50 mg PO DAILY PRN 06/10/24 [History Confirmed 07/02/24] Nitroglycerin 0.4 mg Tablet [Nitrostat 0.4 MG Tablet] 0.4 mg SL Q5MIN PRN MR X 3 PRN 07/02/24 [History Confirmed 07/02/24] Allergies/Adverse Reactions: Allergies Allergy/AdvReac Type Severity Reaction Status Date / Time carbamazepine [From Tegretol] Allergy Verified 07/02/24 12:13 diazepam [From Valium] AdvReac Verified 07/02/24 12:13 hydrocodone AdvReac Verified 07/02/24 12:13 - Past Medical History Past Medical History: Yes Neurological History: Migraines ENT History: Cataracts Cardiac History: Angina, Deep Vein Thrombosis, Hypertension Respiratory History: Pneumonia Endocrine Medical History: No Pertinent History Musculoskelatal History: Fractures, Osteoporosis, Other GI Medical History: Irritable Bowel History: No Pertinent History Pyscho-Social History: Anxiety, Depression Reproductive Disorders: Abnormal Uterine Bleeding Comment: PT HAS BEEN TO FOR A CONSULTATION, NOT A CANDIDATE FOR SURGERY DUE TO OSTEOPOROSIS. NO COMPRESSION FRACTURES NOTED. PT SEES DR. PAYNE AND NOTES HER HEART IS FINE AT THIS TIME, SEES HIM EVERY 6 MONTHS. hx of scoliosis, Sees Dr Mason at our pain clinic, fx L shoulder - Past Surgical History Past Surgical History: Yes Neuro Surgical History: No Pertinent History Cardiac History: No Pertinent History Respiratory Surgery: No Pertinent History GI Surgical History: No Pertinent History Genitourinary Surgical Hx: No Pertinent History Musculskeletal Surgical Hx: Orthopedic Surgery Female Surgical History: Section, Hysterectomy Other Surgical History: bilateral jaw reconstruction 1983, shoulder left fx Jan 2018,steriod inj in back Significant Family History: cancer - Social History Smoking Status: Former smoker (quit 30 years ago) Exposure to second hand smoke: No Alcohol: None Drug Use: none - Social Determinants of Health Will the patient participate in the screening: Yes Do you worry about a steady place to live?: No Do you have any problems with any of the following?: No known problems In the past 12 months,have you had to go without utilities?: No Have you or anyone in your house had to go without enough: No Transportation Issues: No Has anyone in your support network made you feel unsafe?: No Does the patient want assistance with any of the above?: No - Physical Exam Vital Signs: Vital Signs - 24 hr Temp Pulse Resp BP BP Pulse Ox 07/02/24 20:00 103 H 16 119/69 96 07/02/24 19:30 111 H 18 106/74 96 07/02/24 19:00 107 H 17 112/76 96 07/02/24 18:41 95 07/02/24 18:30 107 H 19 117/88 97 07/02/24 18:00 108 H 18 129/90 98 07/02/24 17:30 106 H 16 125/91 96 07/02/24 17:01 107 H 17 119/73 97 07/02/24 16:30 116 H 24 121/92 95 07/02/24 16:00 113 H 19 134/85 97 07/02/24 15:37 112 H 22 130/91 97 07/02/24 15:00 113 H 18 122/83 95 07/02/24 14:30 115 H 21 104/82 96 07/02/24 14:17 117 H 23 102/85 96 07/02/24 14:10 126 H 20 95 07/02/24 14:02 123 H 16 95 07/02/24 13:31 123 H 18 132/78 95 07/02/24 13:19 126 H 23 129/96 96 07/02/24 12:45 96 07/02/24 12:30 114 H 16 107/84 95 07/02/24 12:01 117 H 17 109/75 96 07/02/24 11:45 100.1 F 114 H 16 109/75 95 Physical Exam GEN: Sitting up in bed in no acute distress. HENT: Normocephalic, atraumatic. Moist mucous membranes. EYES: Normal inspection, anicteric sclera, extraocular movements intact. NECK: Supple, full range of motion CV: Regular rate and rhythm, no murmurs, no gallops. No JVD or edema. PULM: Clear to auscultation bilaterally, no work of breathing. On room air. ABD: Nondistended, nontender. MSK: No joint effusions, full range of motion SKIN: No rashes, normal color. NEURO: Face symmetric, no focal motor or sensory deficits. PSYCH: Alert, oriented to person and place, but not to situation. Pre-clinic mild perseveration, particularly regarding her prior UTI. Results - Labs Lab/Micro Results: Lab Results-Last 24 Hours 07/02/24 07/02/24 07/02/24 Range/Units 12:09 12:30 12:46 WBC (3.98-10.04) x10^3/uL RBC (3.93-5.22) x10^6/uL Hgb (11.2-15.7) g/dL Hct (34.1-44.9) % MCV (79.4-94.8) fL MCH (25.6-32.2) pg MCHC (32.2-35.5) g/dL RDW (11.7-14.4) % Plt Count (182-369) x10^3/uL MPV (9.4-12.3) fL Gran % (34.0-71.1) % Immature Gran % (Auto) (0.001-0.429) % Nucleat RBC Rel Count (0.00-0.2) % Eos # (Auto) (0.04-0.36) x10^3/uL Immature Gran # (Auto) (0.001-0.031) x10^3u/L Absolute Lymphs (auto) (1.18-3.74) x10^3/uL Absolute Monos (auto) (0.24-0.86) x10^3/uL Absolute Nucleated RBC (0.00-0.012) x10^3u/L Lymphocytes % (19.3-51.7) % Monocytes % (4.7-12.5) % Eosinophils % (0.7-5.8) % Basophils % (0.1-1.2) % Absolute Granulocytes (1.56-6.13) x10^3/uL Basophils # (0.01-0.08) x10^3/uL Sodium (135-145) mmol/L Potassium (3.5-5.1) mmol/L Chloride (98-107) mmol/L Carbon Dioxide (22-30) mmol/L Anion Gap (5-15) MEQ/L BUN (7-17) mg/dL Creatinine (0.52-1.04) mg/dL Estimated GFR ML/MIN Glucose (74-106) mg/dL POC Glucometer 118 H (74 to 106) mg/dL Lactic Acid (0.4-2.0) Calcium (8.4-10.2) mg/dL Magnesium (1.6-2.3) mg/dL Total Bilirubin (0.2-1.3) mg/dL AST (14-36) U/L ALT (0-35) U/L Alkaline Phosphatase (38-126) U/L Troponin I (0.000-0.033) ng/mL Serum Total Protein (6.3-8.2) g/dL Albumin (3.5-5.0) g/dL Urine Color Yellow (Yellow) Urine Appearance Clear (Clear) Urine pH 6.5 (4.6-8.0) Ur Specific [place] 1.020 (1.005-1.030) Urine Protein Trace A (Negative) Urine Glucose (UA) Negative (Negative) mg/dL Urine Ketones Trace A (Negative) Urine Blood Negative (Negative) Urine Nitrite Negative (Negative) Urine Bilirubin Negative (Negative) Urine Urobilinogen 0.2 (0.2) mg/dL Ur Leukocyte Esterase Negative (Negative) U Hyaline Cast (Auto) NONE SEEN (0-2) /LPF Urine Microscopic RBC 0-2 (0-5) /HPF Urine Microscopic WBC 0-2 (0-5) /HPF Ur Epithelial Cells None Seen (None Seen) /HPF Urine Bacteria None Seen (None Seen) /HPF Urine Culture Reflexed NO (NO) Salicylates (2-20) mg/dL Urine Opiates Level NEGATIVE (NEGATIVE) Ur Methadone NEGATIVE (NEGATIVE) Acetaminophen (10-30) ug/ml Urine Barbiturates NEGATIVE (NEGATIVE) Ur Phencyclidine (PCP) NEGATIVE (NEGATIVE) Urine Amphetamine NEGATIVE (NEGATIVE) U Benzodiazepine Level NEGATIVE (NEGATIVE) Urine Cocaine NEGATIVE (NEGATIVE) Urine Marijuana (THC) NEGATIVE (NEGATIVE) Ethyl Alcohol (0-10) mg/dL Influenza Type A Ag (NEGATIVE) Influenza Type B Ag (NEGATIVE) RSV (PCR) (NEGATIVE) SARS-CoV-2 (PCR) (NEGATIVE) 07/02/24 07/02/24 07/02/24 Range/Units 13:14 13:14 13:14 WBC 22.5 H (3.98-10.04) x10^3/uL RBC 3.65 L (3.93-5.22) x10^6/uL Hgb 11.2 (11.2-15.7) g/dL Hct 34.3 (34.1-44.9) % MCV 94.0 (79.4-94.8) fL MCH 30.7 (25.6-32.2) pg MCHC 32.7 (32.2-35.5) g/dL RDW 14.9 H (11.7-14.4) % Plt Count 717 H (182-369) x10^3/uL MPV 8.9 L (9.4-12.3) fL Gran % 82.6 H (34.0-71.1) % Immature Gran % (Auto) 0.4 (0.001-0.429) % Nucleat RBC Rel Count 0.0 (0.00-0.2) % Eos # (Auto) 0.03 L (0.04-0.36) x10^3/uL Immature Gran # (Auto) 0.08 H (0.001-0.031) x10^3u/L Absolute Lymphs (auto) 1.74 (1.18-3.74) x10^3/uL Absolute Monos (auto) 2.00 H (0.24-0.86) x10^3/uL Absolute Nucleated RBC 0.00 (0.00-0.012) x10^3u/L Lymphocytes % 7.7 L (19.3-51.7) % Monocytes % 8.9 (4.7-12.5) % Eosinophils % 0.1 L (0.7-5.8) % Basophils % 0.3 (0.1-1.2) % Absolute Granulocytes 18.63 H (1.56-6.13) x10^3/uL Basophils # 0.06 (0.01-0.08) x10^3/uL Sodium 138 (135-145) mmol/L Potassium 4.1 (3.5-5.1) mmol/L Chloride 102 (98-107) mmol/L Carbon Dioxide 23 (22-30) mmol/L Anion Gap 17.1 H (5-15) MEQ/L BUN 21 H (7-17) mg/dL Creatinine 0.86 (0.52-1.04) mg/dL Estimated GFR 70.9 ML/MIN Glucose 111 H (74-106) mg/dL POC Glucometer (74 to 106) mg/dL Lactic Acid (0.4-2.0) Calcium 9.5 (8.4-10.2) mg/dL Magnesium 1.8 (1.6-2.3) mg/dL Total Bilirubin 0.60 (0.2-1.3) mg/dL AST 26 (14-36) U/L ALT 20 (0-35) U/L Alkaline Phosphatase 92 (38-126) U/L Troponin I 0.015 (0.000-0.033) ng/mL Serum Total Protein 7.1 (6.3-8.2) g/dL Albumin 3.8 (3.5-5.0) g/dL Urine Color (Yellow) Urine Appearance (Clear) Urine pH (4.6-8.0) Ur Specific [place] (1.005-1.030) Urine Protein (Negative) Urine Glucose (UA) (Negative) mg/dL Urine Ketones (Negative) Urine Blood (Negative) Urine Nitrite (Negative) Urine Bilirubin (Negative) Urine Urobilinogen (0.2) mg/dL Ur Leukocyte Esterase (Negative) U Hyaline Cast (Auto) (0-2) /LPF Urine Microscopic RBC (0-5) /HPF Urine Microscopic WBC (0-5) /HPF Ur Epithelial Cells (None Seen) /HPF Urine Bacteria (None Seen) /HPF Urine Culture Reflexed (NO) Salicylates < 1.0 L (2-20) mg/dL Urine Opiates Level (NEGATIVE) Ur Methadone (NEGATIVE) Acetaminophen < 10 L (10-30) ug/ml Urine Barbiturates (NEGATIVE) Ur Phencyclidine (PCP) (NEGATIVE) Urine Amphetamine (NEGATIVE) U Benzodiazepine Level (NEGATIVE) Urine Cocaine (NEGATIVE) Urine Marijuana (THC) (NEGATIVE) Ethyl Alcohol < 10 (0-10) mg/dL Influenza Type A Ag (NEGATIVE) Influenza Type B Ag (NEGATIVE) RSV (PCR) (NEGATIVE) SARS-CoV-2 (PCR) (NEGATIVE) 07/02/24 07/02/24 07/02/24 Range/Units 13:17 13:20 17:05 WBC (3.98-10.04) x10^3/uL RBC (3.93-5.22) x10^6/uL Hgb (11.2-15.7) g/dL Hct (34.1-44.9) % MCV (79.4-94.8) fL MCH (25.6-32.2) pg MCHC (32.2-35.5) g/dL RDW (11.7-14.4) % Plt Count (182-369) x10^3/uL MPV (9.4-12.3) fL Gran % (34.0-71.1) % Immature Gran % (Auto) (0.001-0.429) % Nucleat RBC Rel Count (0.00-0.2) % Eos # (Auto) (0.04-0.36) x10^3/uL Immature Gran # (Auto) (0.001-0.031) x10^3u/L Absolute Lymphs (auto) (1.18-3.74) x10^3/uL Absolute Monos (auto) (0.24-0.86) x10^3/uL Absolute Nucleated RBC (0.00-0.012) x10^3u/L Lymphocytes % (19.3-51.7) % Monocytes % (4.7-12.5) % Eosinophils % (0.7-5.8) % Basophils % (0.1-1.2) % Absolute Granulocytes (1.56-6.13) x10^3/uL Basophils # (0.01-0.08) x10^3/uL Sodium (135-145) mmol/L Potassium (3.5-5.1) mmol/L Chloride (98-107) mmol/L Carbon Dioxide (22-30) mmol/L Anion Gap (5-15) MEQ/L BUN (7-17) mg/dL Creatinine (0.52-1.04) mg/dL Estimated GFR ML/MIN Glucose (74-106) mg/dL POC Glucometer (74 to 106) mg/dL Lactic Acid 1.9 (0.4-2.0) Calcium (8.4-10.2) mg/dL Magnesium (1.6-2.3) mg/dL Total Bilirubin (0.2-1.3) mg/dL AST (14-36) U/L ALT (0-35) U/L Alkaline Phosphatase (38-126) U/L Troponin I 0.015 (0.000-0.033) ng/mL Serum Total Protein (6.3-8.2) g/dL Albumin (3.5-5.0) g/dL Urine Color (Yellow) Urine Appearance (Clear) Urine pH (4.6-8.0) Ur Specific [place] (1.005-1.030) Urine Protein (Negative) Urine Glucose (UA) (Negative) mg/dL Urine Ketones (Negative) Urine Blood (Negative) Urine Nitrite (Negative) Urine Bilirubin (Negative) Urine Urobilinogen (0.2) mg/dL Ur Leukocyte Esterase (Negative) U Hyaline Cast (Auto) (0-2) /LPF Urine Microscopic RBC (0-5) /HPF Urine Microscopic WBC (0-5) /HPF Ur Epithelial Cells (None Seen) /HPF Urine Bacteria (None Seen) /HPF Urine Culture Reflexed (NO) Salicylates (2-20) mg/dL Urine Opiates Level (NEGATIVE) Ur Methadone (NEGATIVE) Acetaminophen (10-30) ug/ml Urine Barbiturates (NEGATIVE) Ur Phencyclidine (PCP) (NEGATIVE) Urine Amphetamine (NEGATIVE) U Benzodiazepine Level (NEGATIVE) Urine Cocaine (NEGATIVE) Urine Marijuana (THC) (NEGATIVE) Ethyl Alcohol (0-10) mg/dL Influenza Type A Ag NEGATIVE (NEGATIVE) Influenza Type B Ag NEGATIVE (NEGATIVE) RSV (PCR) NEGATIVE (NEGATIVE) SARS-CoV-2 (PCR) NEGATIVE (NEGATIVE) 07/02/24 Range/Units 19:49 WBC (3.98-10.04) x10^3/uL RBC (3.93-5.22) x10^6/uL Hgb (11.2-15.7) g/dL Hct (34.1-44.9) % MCV (79.4-94.8) fL MCH (25.6-32.2) pg MCHC (32.2-35.5) g/dL RDW (11.7-14.4) % Plt Count (182-369) x10^3/uL MPV (9.4-12.3) fL Gran % (34.0-71.1) % Immature Gran % (Auto) (0.001-0.429) % Nucleat RBC Rel Count (0.00-0.2) % Eos # (Auto) (0.04-0.36) x10^3/uL Immature Gran # (Auto) (0.001-0.031) x10^3u/L Absolute Lymphs (auto) (1.18-3.74) x10^3/uL Absolute Monos (auto) (0.24-0.86) x10^3/uL Absolute Nucleated RBC (0.00-0.012) x10^3u/L Lymphocytes % (19.3-51.7) % Monocytes % (4.7-12.5) % Eosinophils % (0.7-5.8) % Basophils % (0.1-1.2) % Absolute Granulocytes (1.56-6.13) x10^3/uL Basophils # (0.01-0.08) x10^3/uL Sodium (135-145) mmol/L Potassium (3.5-5.1) mmol/L Chloride (98-107) mmol/L Carbon Dioxide (22-30) mmol/L Anion Gap (5-15) MEQ/L BUN (7-17) mg/dL Creatinine (0.52-1.04) mg/dL Estimated GFR ML/MIN Glucose (74-106) mg/dL POC Glucometer (74 to 106) mg/dL Lactic Acid (0.4-2.0) Calcium (8.4-10.2) mg/dL Magnesium (1.6-2.3) mg/dL Total Bilirubin (0.2-1.3) mg/dL AST (14-36) U/L ALT (0-35) U/L Alkaline Phosphatase (38-126) U/L Troponin I 0.023 (0.000-0.033) ng/mL Serum Total Protein (6.3-8.2) g/dL Albumin (3.5-5.0) g/dL Urine Color (Yellow) Urine Appearance (Clear) Urine pH (4.6-8.0) Ur Specific [place] (1.005-1.030) Urine Protein (Negative) Urine Glucose (UA) (Negative) mg/dL Urine Ketones (Negative) Urine Blood (Negative) Urine Nitrite (Negative) Urine Bilirubin (Negative) Urine Urobilinogen (0.2) mg/dL Ur Leukocyte Esterase (Negative) U Hyaline Cast (Auto) (0-2) /LPF Urine Microscopic RBC (0-5) /HPF Urine Microscopic WBC (0-5) /HPF Ur Epithelial Cells (None Seen) /HPF Urine Bacteria (None Seen) /HPF Urine Culture Reflexed (NO) Salicylates (2-20) mg/dL Urine Opiates Level (NEGATIVE) Ur Methadone (NEGATIVE) Acetaminophen (10-30) ug/ml Urine Barbiturates (NEGATIVE) Ur Phencyclidine (PCP) (NEGATIVE) Urine Amphetamine (NEGATIVE) U Benzodiazepine Level (NEGATIVE) Urine Cocaine (NEGATIVE) Urine Marijuana (THC) (NEGATIVE) Ethyl Alcohol (0-10) mg/dL Influenza Type A Ag (NEGATIVE) Influenza Type B Ag (NEGATIVE) RSV (PCR) (NEGATIVE) SARS-CoV-2 (PCR) (NEGATIVE) - Radiology Impressions Radiology Exams & Impressions: Radiology Procedures Category Date Time Status ABDOMEN AND PELVIS W/0 CONTRAS [CT] Stat Exams 07/02/24 14:35 Completed CHEST 1 VIEW (PORTABLE) Stat Exams 07/02/24 12:47 Completed HEAD WITHOUT CONTRAST [CT] Stat Exams 07/02/24 12:[address] head nonacute senile brain. Chest x-ray body position is rotated, somewhat limiting exam, but evidence of scarring at the right base that appears to be more or less the same as prior chest x-ray. Stomach bubble easily visible due to rotation, with evidence of some stool near the splenic flexure. No acute infiltrate, consolidation, or effusion. (Images personally reviewed). CT abdomen pelvis nonobstructive bowel loops. Mild diffuse scattered colonic fecal debris. Rectum with new mild circumferential wall thickening and perirectal stranding favoring noncomplicated proctitis. Assessment/Plan (1) Confusion Current Visit: Yes Status: Acute Assessment & Plan: 73-year-old woman with history of hypertension and depression with possible early dementia, who presents with confusion, found to have leukocytosis and possible proctitis on CT scan. ## Proctitis, leukocytosis the clinical relevance of the inflammation seen on the CT scan is unclear. Patient denies any abdominal pain or diarrhea that would be suggestive of clinical findings of colitis. 3 weeks ago, patient was briefly admitted with concern for C. difficile, but was not treated due to uncertainty regarding the lab testing results. A marked leukocytosis (22) out of proportion to patient's clinical appearance would be consistent with C. difficile colitis. But again, patient does not appear to be having any diarrhea as would be expected clinically. No other clear source for infection based on history or imaging. Follow-up blood cultures Will cover clinically for intra-abdominal infection with Rocephin and Flagyl IV Give 1 L normal saline bolus is patient remains tachycardic, although has normal lactate Start on clear liquid diet, but can quickly advance diet as tolerated if patient does not have any pain or diarrhea If patient never developed any clear symptoms or has rapid improvement in her leukocytosis, low threshold for stopping antibiotics ## Confusion, presumed metabolic encephalopathy patient's history is notable for frequent altered mentation in the setting of infection, particularly UTI. No evidence of UTI at this time, although does have the leukocytosis, borderline elevated temperature, and tachycardia as above. She is more alert and active now, although she still remains confused over recent events, and perseverates to some degree. Per ED physician, reported that patient was at her baseline mental status currently. Give fluids and antibiotics as above Discuss patient's mental status with to confirm how she is progressing ## Hypertension blood pressure controlled. Continue home hydrochlorothiazide 12.5, Toprol-XL 50 BID ## Depression Continue Elavil 20 mg nightly, Lexapro 10 mg daily CODE STATUS: Full code Prophylaxis: Lovenox 40 daily Diet: Clear liquid diet, advance as tolerated Dispo: Place in observation, expect eventual discharge back to home Entirety of encounter took place via live audio/video telemedicine device, with remote physician and patient in hospital, with the assistance of bedside nurse. Code(s): R41.0 - DISORIENTATION, UNSPECIFIED Telemedicine Encounter - Telemedicine Encounter Telemedicine Encounter: "The entirety of this encounter was performed via Telemedicine" This visit was performed using real-time audio and video connection between my location and thepatients locationwith the assistance of a surrogateat the patients location. Written or verbal consent was obtained from the patient/guardian to perform this visit using[place]ashion Republic[place]medicine technology. Any patient questions regarding the telemedicine interaction were answered.
[2024-07-02] MEDS: Sodium Chloride 0.9% 1000 ML 1,000 ML IV STA (22:15)
[2024-07-02] MEDS: FLAGYL 500 MG IVPB 500 MG/100 ML BAG IV SCH (22:59)
[2024-07-02] MEDS: Toprol Xl 50 MG PO SCH (22:59)
[2024-07-02] MEDS: AMITRIPTYLINE HCL 100 MG PO SCH (23:03)
[2024-07-03 06:02] LABS: Absolute Neutrophil Ct (ANC) 11.71 x10^3/uL (1.56-6.13); BASOPHIL % 0.4 % (0.1-1.2); Basophil (Absolute #) 0.06 x10^3/uL (0.01-0.08); Eosinophil % 1.2 % (0.7-5.8); Eosinophil (Absolute #) 0.17 x10^3/uL (0.04-0.36); Hematocrit 30.5 % (34.1-44.9); Hemoglobin 9.6 g/dL (11.2-15.7); IMMATURE GRAN # 0.06 x10^3u/L (0.001-0.031); IMMATURE GRAN % 0.4 % (0.001-0.429); Lymphocyte (Absolute #) 1.48 x10^3/uL (1.18-3.74); Lymphocytes % 10.2 % (19.3-51.7); Mean Cell Volume 95.9 fL (79.4-94.8); Mean Corpuscular Hemoglobin 30.2 pg (25.6-32.2); Mean Corpuscular Hgb Concent. 31.5 g/dL (32.2-35.5); Monocyte (Absolute #) 1.02 x10^3/uL (0.24-0.86); Neutrophil % 80.8 % (34.0-71.1); Platelet Count 590 x10^3/uL (182-369); Red Blood Count 3.18 x10^6/uL (3.93-5.22); Red Cell Distribution Width 15.1 % (11.7-14.4); White Blood Count 14.5 x10^3/uL (3.98-10.04)
[2024-07-03 06:25] LABS: ANION GAP 13.4 MEQ/L (5-15); Creatinine 1 0.79 mg/dL (0.52-1.04); EST GLOMERULAR FILTRATION RATE 78.4 ML/MIN; Potassium 3.3 mmol/L (3.5-5.1)
[2024-07-03] MEDS: hydroDIURIL 25 MG PO SCH (09:43)
[2024-07-03] MEDS: ROCEPHIN 1 GM / 100 ML NaCl 1 GM/100 ML IVPB IV SCH (09:44)
[2024-07-03] MEDS: K-LYTE PO SCH (09:44)
[2024-07-03] MEDS: Miralax Powder 17GM PACKET PO PRN (09:44)
[2024-07-03] MEDS: Lexapro PO SCH (09:44)
[2024-07-03] MEDS: ENOXAPARIN SODIUM SQ SCH (09:44)
[2024-07-03] MEDS ORDERED: TUCKS TP SCH (10:00)
[2024-07-03] MEDS ORDERED: NON-FORMULARY ITEM (Hydrochlorothiazide [Hydrochlorothiazide] 12.5 MG Tablet) PO SCH (10:00)
--- NOTE | 2024-07-03 13:54 | XRAY ---
Indication: Confusion. Sagittal, coronal, and axial MRI brain performed without contrast using T1, T2, FLAIR, diffusion, and ADC sequences. Comparison: May 02, 2022. Again age-appropriate global atrophy and mild periventricular degenerative micro-ischemia signal bilaterally. Diffusion images demonstrate new 3-4 mm focus restricted signal right occipital lobe favoring acute micro-ischemia. No acute intracranial hemorrhage, abnormal extra-axial fluid collection, or mass effect. Fourth ventricle is midline without hydrocephalus. 7/8 cranial nerve complex complex bilaterally symmetric. Normal flow void signal within the major intracerebral circulation. Normal-appearing craniocervical junction and sella turcica. Paranasal sinuses are clear. Impression: 1. New 3-4 mm focus acute micro-ischemia right occipital lobe. 2. Again atrophy and degenerative micro-ischemia within normal limits.
--- NOTE | 2024-07-03 14:42 | PCM.NOTE ---
Date and Time: 07/03/24 1430 Subjective Assessment: 07/03/24 Mrs. Montiel is a 73-year-old woman with a PMHX of hypertension, depression, and possible early dementia presents with confusion. She has frequent admissions for altered mentation, usually secondary to infections like UTIs. The patient is unable to recall the events leading to her current hospitalization but was found by family members sitting in a chair since Monday, unresponsive. She frequently perseverates about her prior UTI, which she believes was never fully resolved, and often experiences episodes of decreased responsiveness associated with UTIs. Per admission provider, she remained talkative and engaged but was forgetful regarding recent events. She denied fever, headache, chills, sore throat, chest pain, dyspnea, abdominal pain, nausea, diarrhea, or dysuria. She also denies rashes or wounds, although she reports intermittent constipation and has had one normal, non-painful bowel movement since arriving at the ED. When asked about abdominal pain, she initially denies it, but after prolonged thinking, she becomes confused and returns to discussing her previous UTI. A CT scan of the head showed no acute concerns, but an MRI revealed a new 3-4 mm focus of acute micro-ischemia in the right occipital lobe. Neurology was consulted for a potential CVA, and physical therapy, occupational therapy, and speech therapy were ordered for further evaluation. CXT abd/ pelvis showed: noncomplicated proctitis and new mild diffuse fecal stasis. She did have 2 BM's last night. Miralax started today. Rocephin and flagyl started for proctitis. Surgery consulted in ER. WBC improved 14.5 today. K+ 3.3 and replaced, She denies CP, SOB, N/V/D. - Review of Systems Constitutional: No Fever, No Chills Eyes: No Symptoms Ears, Nose, & Throat: No Symptoms Respiratory: No Cough, No Short Of Breath Cardiac: No Chest Pain, No Edema, No Syncope Abdominal/Gastrointestinal: Abdominal Pain, Constipation, Other (rectal pain), No Nausea, No Vomiting, No Diarrhea Genitourinary Symptoms: No Dysuria Musculoskeletal: No Back Pain, No Neck Pain Skin: No Rash Neurological: Other (confusion), No Dizziness, No Focal Weakness, No Sensory Changes Psychological: No Symptoms Endocrine: No Symptoms Hematologic/Lymphatic: No Symptoms Immunological/Allergic: No Symptoms Objective Exam General Appearance: no apparent distress, alert Neurologic Exam: alert, cooperative, normal mood/affect, nml cerebellar function, sensation nml, confusion (oriented x2, not to place), motor weakness, No motor deficits Skin Exam: normal color, warm, dry Eye Exam: PERRL, EOMI, eyes nml inspection Ears, Nose, Throat Exam: normal ENT inspection, pharynx normal, moist mucous membranes Neck Exam: normal inspection, non-tender, supple, full range of motion Respiratory Exam: normal breath sounds, lungs clear, No respiratory distress Cardiovascular Exam: regular rate/rhythm, normal heart sounds Gastrointestinal/Abdomen Exam: soft, tenderness (generalized), No mass Extremity Exam: normal inspection, normal range of motion Back Exam: normal inspection, normal range of motion, No CVA tenderness, No vertebral tenderness Pelvic Exam: deferred Rectal Exam: deferred Objective Data Vital Signs: Vital Signs - 24 hr Temp Pulse Resp BP BP Pulse Ox 07/03/24 12:00 97.3 F 89 20 111/67 96 07/03/24 08:00 97.1 F 90 18 124/72 97 07/03/24 04:00 97.5 F 90 17 119/81 96 07/02/24 23:17 97.5 F 104 H 18 108/66 96 07/02/24 21:43 110 H 18 95 07/02/24 20:42 98.9 F 107 H 16 121/76 95 07/02/24 20:00 103 H 16 119/69 96 07/02/24 19:30 111 H 18 106/74 96 07/02/24 19:00 107 H 17 112/76 96 07/02/24 18:41 95 07/02/24 18:30 107 H 19 117/88 97 07/02/24 18:00 108 H 18 129/90 98 07/02/24 17:30 106 H 16 125/91 96 07/02/24 17:01 107 H 17 119/73 97 07/02/24 16:30 116 H 24 121/92 95 07/02/24 16:00 113 H 19 134/85 97 07/02/24 15:37 112 H 22 130/91 97 07/02/24 15:00 113 H 18 122/83 95 Pain Assessment - Last Documented Pain Intensity 0 Intake and Output: Intake & Output 07/01/24 07/02/24 07/03/2427/25 11:59 11:59 11:59 11:59 Intake Total 1316 Balance 1316 Weight 50.6 kg 52.3 kg Lab Results: Lab Results-Last 24 Hours 07/02/24 07/02/24 07/02/24 Range/Units 12:46 17:05 19:49 WBC (3.98-10.04) x10^3/uL RBC (3.93-5.22) x10^6/uL Hgb (11.2-15.7) g/dL Hct (34.1-44.9) % MCV (79.4-94.8) fL MCH (25.6-32.2) pg MCHC (32.2-35.5) g/dL RDW (11.7-14.4) % Plt Count (182-369) x10^3/uL MPV (9.4-12.3) fL Gran % (34.0-71.1) % Immature Gran % (Auto) (0.001-0.429) % Nucleat RBC Rel Count (0.00-0.2) % Eos # (Auto) (0.04-0.36) x10^3/uL Immature Gran # (Auto) (0.001-0.031) x10^3u/L Absolute Lymphs (auto) (1.18-3.74) x10^3/uL Absolute Monos (auto) (0.24-0.86) x10^3/uL Absolute Nucleated RBC (0.00-0.012) x10^3u/L Lymphocytes % (19.3-51.7) % Monocytes % (4.7-12.5) % Eosinophils % (0.7-5.8) % Basophils % (0.1-1.2) % Absolute Granulocytes (1.56-6.13) x10^3/uL Basophils # (0.01-0.08) x10^3/uL Sodium (135-145) mmol/L Potassium (3.5-5.1) mmol/L Chloride (98-107) mmol/L Carbon Dioxide (22-30) mmol/L Anion Gap (5-15) MEQ/L BUN (7-17) mg/dL Creatinine (0.52-1.04) mg/dL Estimated GFR ML/MIN Glucose (74-106) mg/dL Calcium (8.4-10.2) mg/dL Magnesium (1.6-2.3) mg/dL Troponin I 0.015 0.023 (0.000-0.033) ng/mL Urine Opiates Level NEGATIVE (NEGATIVE) Ur Methadone NEGATIVE (NEGATIVE) Urine Barbiturates NEGATIVE (NEGATIVE) Ur Phencyclidine (PCP) NEGATIVE (NEGATIVE) Urine Amphetamine NEGATIVE (NEGATIVE) U Benzodiazepine Level NEGATIVE (NEGATIVE) Urine Cocaine NEGATIVE (NEGATIVE) Urine Marijuana (THC) NEGATIVE (NEGATIVE) 07/03/24 07/03/24 07/03/24 Range/Units 04:36 04:36 04:36 WBC 14.5 H (3.98-10.04) x10^3/uL RBC 3.18 L (3.93-5.22) x10^6/uL Hgb 9.6 L (11.2-15.7) g/dL Hct 30.5 L (34.1-44.9) % MCV 95.9 H (79.4-94.8) fL MCH 30.2 (25.6-32.2) pg MCHC 31.5 L (32.2-35.5) g/dL RDW 15.1 H (11.7-14.4) % Plt Count 590 H (182-369) x10^3/uL MPV 9.0 L (9.4-12.3) fL Gran % 80.8 H (34.0-71.1) % Immature Gran % (Auto) 0.4 (0.001-0.429) % Nucleat RBC Rel Count 0.0 (0.00-0.2) % Eos # (Auto) 0.17 (0.04-0.36) x10^3/uL Immature Gran # (Auto) 0.06 H (0.001-0.031) x10^3u/L Absolute Lymphs (auto) 1.48 (1.18-3.74) x10^3/uL Absolute Monos (auto) 1.02 H (0.24-0.86) x10^3/uL Absolute Nucleated RBC 0.00 (0.00-0.012) x10^3u/L Lymphocytes % 10.2 L (19.3-51.7) % Monocytes % 7.0 (4.7-12.5) % Eosinophils % 1.2 (0.7-5.8) % Basophils % 0.4 (0.1-1.2) % Absolute Granulocytes 11.71 H (1.56-6.13) x10^3/uL Basophils # 0.06 (0.01-0.08) x10^3/uL Sodium 135 (135-145) mmol/L Potassium 3.3 L (3.5-5.1) mmol/L Chloride 103 (98-107) mmol/L Carbon Dioxide 22 (22-30) mmol/L Anion Gap 13.4 (5-15) MEQ/L BUN 17 (7-17) mg/dL Creatinine 0.79 (0.52-1.04) mg/dL Estimated GFR 78.4 ML/MIN Glucose 95 (74-106) mg/dL Calcium 8.0 L D (8.4-10.2) mg/dL Magnesium 1.8 (1.6-2.3) mg/dL Troponin I (0.000-0.033) ng/mL Urine Opiates Level (NEGATIVE) Ur Methadone (NEGATIVE) Urine Barbiturates (NEGATIVE) Ur Phencyclidine (PCP) (NEGATIVE) Urine Amphetamine (NEGATIVE) U Benzodiazepine Level (NEGATIVE) Urine Cocaine (NEGATIVE) Urine Marijuana (THC) (NEGATIVE) Radiology Exams: Radiology Procedures Category Date Time Status ABDOMEN AND PELVIS W/0 CONTRAS [CT] Stat Exams 07/02/24 14:35 Completed CHEST 1 VIEW (PORTABLE) Stat Exams 07/02/24 12:47 Completed HEAD WITHOUT CONTRAST [CT] Stat Exams 07/02/24 12:40 Completed MRI BRAIN W/O CONTRAST [MRI] Urgent Exams 07/03/24 09:19 Completed Assessment/Plan (1) CVA (cerebral vascular accident) Current Visit: Yes Status: Acute Assessment & Plan: - CT head negative - MRI brain: Impression: 1. New 3-4 mm focus acute micro-ischemia right occipital lobe. 2. Again atrophy and degenerative micro-ischemia within normal limits. - Neurology consult - Alert to person and time not place - Tele - Neuro checks Q4 - lipid panel - A1C - PT/ST/ OT eval - ASA 81 mg daily - Atorvastatin 80 mg daily - ECHO - EKG - NIH scale 3 - ABCD- 4 Code(s): I63.9 - CEREBRAL INFARCTION, UNSPECIFIED (2) Hypokalemia Current Visit: Yes Status: Acute Assessment & Plan: - K+ 3.3- replaced- trend Code(s): E87.6 - HYPOKALEMIA (3) Constipation Current Visit: Yes Status: Acute Assessment & Plan: - Miralax started - As seen on CT abd/ pelvis - BM x2 last night Code(s): K59.00 - CONSTIPATION, UNSPECIFIED (4) Confusion Current Visit: Yes Status: Acute Assessment & Plan: - Acute on chronic - Not alert to place - 2:2 CVA Code(s): R41.0 - DISORIENTATION, UNSPECIFIED (5) Leukocytosis Current Visit: Yes Status: Acute Assessment & Plan: - WBC 14.5 - 2:2 proctitis Code(s): D72.829 - ELEVATED WHITE BLOOD CELL COUNT, UNSPECIFIED (6) Proctitis Current Visit: Yes Status: Acute Assessment & Plan: - As seen on CT - TUCKs pads - Rocephin and Flagyl - CBC reviewed - Surgery consult Code(s): K62.89 - OTHER SPECIFIED DISEASES OF ANUS AND RECTUM (7) Anxiety and depression Current Visit: No Status: Chronic Assessment & Plan: - continue home meds Code(s): F41.9 - ANXIETY DISORDER, UNSPECIFIED; F32.A - DEPRESSION, UNSPECIFIED (8) HLD (hyperlipidemia) Current Visit: No Status: Chronic Assessment & Plan: - Lipid panel pending - Not on statin on admission - Started atorvastatin 80mg PO daily for CVA dx Code(s): E78.5 - HYPERLIPIDEMIA, UNSPECIFIED (9) HTN (hypertension) Current Visit: No Status: Chronic Qualifiers: Hypertension type: primary hypertension Qualified Code(s): I10 - Essential (primary) hypertension Assessment & Plan: - BP stable - continue home med - CMP reviewed VTE: Stopped lovenox- SCD's PPI: Protonix Next of KIN: D/C plan: 1-2 days Code status: Full Code(s): I10 - ESSENTIAL (PRIMARY) HYPERTENSION
[2024-07-03 15:16] LABS: MAGNESIUM 1.6 mg/dL (1.6-2.3); Potassium 3.9 mmol/L (3.5-5.1)
[2024-07-03] MEDS ORDERED: K-LYTE ONE (15:51)
[2024-07-03] MEDS: Protonix 20MG Tablet PO SCH (16:16)
[2024-07-03] MEDS: ECOTRIN 81 MG PO SCH (16:16)
[2024-07-03] MEDS: TUCKS TP PRN (16:17)
[2024-07-03] MEDS: LIPITOR 40MG PO SCH (16:19)
[2024-07-03] MEDS: PLAVIX Tablet PO SCH (21:00)
[2024-07-04 05:34] LABS: Hematocrit 28.7 % (34.1-44.9); Hemoglobin 9.1 g/dL (11.2-15.7); Mean Cell Volume 93.8 fL (79.4-94.8); Mean Corpuscular Hemoglobin 29.7 pg (25.6-32.2); Mean Corpuscular Hgb Concent. 31.7 g/dL (32.2-35.5); Mean Platelet Volume 8.8 fL (9.4-12.3); Platelet Count 625 x10^3/uL (182-369); Red Blood Count 3.06 x10^6/uL (3.93-5.22); Red Cell Distribution Width 15.1 % (11.7-14.4); White Blood Count 13.9 x10^3/uL (3.98-10.04)
[2024-07-04 07:05] LABS: ALBUMIN 3.2 g/dL (3.5-5.0); BILIRUBIN,TOTAL 0.6 mg/dL (0.2-1.3); Calcium 8.1 mg/dL (8.4-10.2); Creatinine 1 0.8 mg/dL (0.52-1.04); EST GLOMERULAR FILTRATION RATE 77.3 ML/MIN; MAGNESIUM 1.8 mg/dL (1.6-2.3); Potassium 3.6 mmol/L (3.5-5.1)
--- NOTE | 2024-07-04 12:21 | PCM.DS ---
Discharge Summary Date of Admission: 07/02/24 20:37 Date of Discharge: 07/04/24 Admitting Physician: HERON CHAUHAN MD Consults: Consults on Case 07/02/24 14:31 Tele-Health Consult ROUTINE 07/03/24 14:12 Consult Neurology ROUTINE Primary Care Provider: VICENTEYOUSUF AKIN Allergies Allergies carbamazepine [From Tegretol] Allergy (Verified 07/02/24 12:13) pt can't remember what this med does to her, but also and adverse rx diazepam [From Valium] Adverse Reaction (Verified 07/02/24 12:13) severe confusion hydrocodone Adverse Reaction (Verified 07/02/24 12:13) severe confusion Hospital Summary - Hospital Course Hospital Course: 07/03/24 Mrs. Montiel is a 73-year-old woman with a PMHX of hypertension, depression, and possible early dementia presents with confusion. She has frequent admissions for altered mentation, usually secondary to infections like UTIs. The patient is unable to recall the events leading to her current hospitalization but was found by family members sitting in a chair since Monday, unresponsive. She frequently perseverates about her prior UTI, which she believes was never fully resolved, and often experiences episodes of decreased responsiveness associated with UTIs. Per admission provider, she remained talkative and engaged but was forgetful regarding recent events. She denied fever, headache, chills, sore throat, chest pain, dyspnea, abdominal pain, nausea, diarrhea, or dysuria. She also denies rashes or wounds, although she reports intermittent constipation and has had one normal, non-painful bowel movement since arriving at the ED. When asked about abdominal pain, she initially denies it, but after prolonged thinking, she becomes confused and returns to discussing her previous UTI. A CT scan of the head showed no acute concerns, but an MRI revealed a new 3-4 mm focus of acute micro-ischemia in the right occipital lobe. Neurology was consulted for a potential CVA, and physical therapy, occupational therapy, and speech therapy were ordered for further evaluation. CXT abd/ pelvis showed: noncomplicated proctitis and new mild diffuse fecal stasis. She did have 2 BM's last night. Miralax started today. Rocephin and flagyl started for proctitis. Surgery consulted in ER. WBC improved 14.5 today. K+ 3.3 and replaced. She denies CP, SOB, N/V/D. 07/04/24 Pt resting in bed. She has been accepted to rehab today. She continues to be confused to place. Today she has left leg weakness. Neurology consulted last night and started Plavix 75mg daily. PT/OT/ST have evaluated pt. Echo results pending, will need OP f/u to review results. Continue antibiotics OP for proctitis. She denies CP, SOB, N/V/D. - Vitals & Intake/Output Vital Signs: Vital Signs Temperature 97.4 F 07/04/24 08:00 Pulse Rate 83 07/04/24 08:00 Respiratory Rate 20 07/04/24 08:00 Blood Pressure 119/69 07/04/24 08:00 O2 Sat by Pulse Oximetry 95 07/04/24 08:00 Intake & Output: Intake & Output 07/02/24 07/03/24 07/04/24 07/05/24 11:59 11:59 11:59 11:59 Intake Total 1316 801 Balance 1316 801 Weight 50.6 kg 52.3 kg - Lab Result Diagrams: 07/04/24 04:44 07/04/24 04:44 Lab Results-Last 24 Hrs: Lab Results-Last 24 Hours 07/03/24 07/03/24 07/03/24 Range/Units 04:36 04:36 15:00 WBC (3.98-10.04) x10^3/uL RBC (3.93-5.22) x10^6/uL Hgb (11.2-15.7) g/dL Hct (34.1-44.9) % MCV (79.4-94.8) fL MCH (25.6-32.2) pg MCHC (32.2-35.5) g/dL RDW (11.7-14.4) % Plt Count (182-369) x10^3/uL MPV (9.4-12.3) fL Sodium (135-145) mmol/L Potassium 3.9 (3.5-5.1) mmol/L Chloride (98-107) mmol/L Carbon Dioxide (22-30) mmol/L Anion Gap (5-15) MEQ/L BUN (7-17) mg/dL Creatinine (0.52-1.04) mg/dL Estimated GFR ML/MIN Glucose (74-106) mg/dL Hemoglobin A1c 4.93 (4.5-6.0) % Calcium (8.4-10.2) mg/dL Magnesium 1.6 (1.6-2.3) mg/dL Total Bilirubin (0.2-1.3) mg/dL AST (14-36) U/L ALT (0-35) U/L Alkaline Phosphatase (38-126) U/L Serum Total Protein (6.3-8.2) g/dL Albumin (3.5-5.0) g/dL Triglycerides 48 (30-150) mg/dL Cholesterol 155 (50-200) mg/dL LDL Cholesterol 87 (30-100) mg/dL HDL Cholesterol 38 L (40-60) mg/dL Heart Disease Risk Ratio 4.0 07/04/24 07/04/24 Range/Units 04:44 04:44 WBC 13.9 H (3.98-10.04) x10^3/uL RBC 3.06 L (3.93-5.22) x10^6/uL Hgb 9.1 L (11.2-15.7) g/dL Hct 28.7 L (34.1-44.9) % MCV 93.8 (79.4-94.8) fL MCH 29.7 (25.6-32.2) pg MCHC 31.7 L (32.2-35.5) g/dL RDW 15.1 H (11.7-14.4) % Plt Count 625 H (182-369) x10^3/uL MPV 8.8 L (9.4-12.3) fL Sodium 134 L (135-145) mmol/L Potassium 3.6 (3.5-5.1) mmol/L Chloride 103 (98-107) mmol/L Carbon Dioxide 21 L (22-30) mmol/L Anion Gap 13.0 (5-15) MEQ/L BUN 12 (7-17) mg/dL Creatinine 0.80 (0.52-1.04) mg/dL Estimated GFR 77.3 ML/MIN Glucose 79 (74-106) mg/dL Hemoglobin A1c (4.5-6.0) % Calcium 8.1 L (8.4-10.2) mg/dL Magnesium 1.8 (1.6-2.3) mg/dL Total Bilirubin 0.60 (0.2-1.3) mg/dL AST 20 (14-36) U/L ALT 12 (0-35) U/L Alkaline Phosphatase 75 (38-126) U/L Serum Total Protein 6.0 L (6.3-8.2) g/dL Albumin 3.2 L (3.5-5.0) g/dL Triglycerides (30-150) mg/dL Cholesterol (50-200) mg/dL LDL Cholesterol (30-100) mg/dL HDL Cholesterol (40-60) mg/dL Heart Disease Risk Ratio Micro Results-Entire Visit: Microbiology 07/02/24 12:30 Urine Culture - Final Urine, Catheterized NO GROWTH 07/02/24 13:14 Blood Culture - Preliminary Blood - Radiology Exams Ordered Rad Exams-Entire Visit: Radiology Procedures Category Date Time Status ABDOMEN AND PELVIS W/0 CONTRAS [CT] Stat Exams 07/02/24 14:35 Completed CHEST 1 VIEW (PORTABLE) Stat Exams 07/02/24 12:47 Completed ECHO W/2D AND DOPPLER [US] Routine Exams 07/03/24 14:38 Taken HEAD WITHOUT CONTRAST [CT] Stat Exams 07/02/24 12:40 Completed MRI BRAIN W/O CONTRAST [MRI] Urgent Exams 07/03/24 09:19 Completed - Procedures and Test Procedures and Tests throughout Hospitalization: Therapy Orders & Screens 07/02/24 21:42 Respiratory Therapy Consult ONCE Comment: Reason For Exam: Diagnosis: confusion 07/03/24 07:30 OT Screen per Nursing Assess ONCE Comment: Protocol Order Physician Instructions: Greater than 3 points order OT Admission Screening Reason For Exam: Triggered on Admission Diagnosis: confusion Open Wound/Cellutlitis/Pressure Ulcers: No Acute Fx/ORIF/Change in wt bearing status: No Severe MUSCULOSKELETAL pain: No ADL Dysfunction: Yes Acute CVA w/Hemiparesis/Hemiplegia: No Decreased Functional Mobility/Strength: Yes Sprain/Strain: No Acute Post-op Mobility Dysfunction: No Total Points: 4 PT Screen per Nursing Assess ONCE Comment: Protocol Order Physician Instructions: Greater than 3 points order PT Admission Screenin Reason For Exam: Triggered on Admission Diagnosis: confusion Open Wound/Cellutlitis/Pressure Ulcers: No Acute Fx/ORIF/Change in wt bearing status: No Severe MUSCULOSKELETAL pain: No ADL Dysfunction: Yes Acute CVA w/Hemiparesis/Hemiplegia: No Decreased Functional Mobility/Strength: Yes Sprain/Strain: No Acute Post-op Mobility Dysfunction: No Total Points: 4 07/03/24 11:53 PT Eval & Treat ( Order) ONCE Reason for Eval:: weakness, CVA Diagnosis: confusion 07/03/24 14:33 ST Eval & Treat ( Order) .as ordered Comment: Physician Instructions: Reason For Exam: Evaluate: Yes: CVA Treat: Yes Reason for Eval: CVA Diagnosis: confusion 07/03/24 14:34 OT Eval and Treat (MD Order) ROUTINE Comment: Physician Instructions: Reason For Exam: Evaluate: Yes Treat: Yes Reason for Evaluation: CVA Diagnosis: confusion 07/03/24 14:36 EKG DAILY Comment: Diagnosis: confusion 07/03/24 15:41 EKG REPEAT IN AM Comment: Diagnosis: confusion Discharge Exam General Appearance: no apparent distress, alert Neurologic Exam: alert, cooperative, normal mood/affect, nml cerebellar function, sensation nml, confusion (not oriented to place), No motor deficits Eye Exam: PERRL, EOMI, eyes nml inspection Ears, Nose, Throat Exam: normal ENT inspection, pharynx normal, moist mucous membranes Neck Exam: normal inspection, non-tender, supple, full range of motion Respiratory Exam: normal breath sounds, lungs clear, No respiratory distress Cardiovascular Exam: regular rate/rhythm, normal heart sounds Gastrointestinal/Abdomen Exam: soft, No tenderness, No mass Pelvic Exam: deferred Rectal Exam: deferred Back Exam: normal inspection, normal range of motion, No CVA tenderness, No vertebral tenderness Extremity Exam: normal inspection, normal range of motion Skin Exam: normal color, warm, dry Final Diagnosis/Problem List - Final Discharge Diagnosis/Problem (1) CVA (cerebral vascular accident) Current Visit: Yes Status: Acute Code(s): I63.9 - CEREBRAL INFARCTION, UNSPECIFIED (2) Hypokalemia Current Visit: Yes Status: Acute Code(s): E87.6 - HYPOKALEMIA (3) Constipation Current Visit: Yes Status: Acute Code(s): K59.00 - CONSTIPATION, UNSPECIFIED (4) Confusion Current Visit: Yes Status: Acute Code(s): R41.0 - DISORIENTATION, UNSPECIF IED (5) Leukocytosis Current Visit: Yes Status: Acute Code(s): D72.829 - ELEVATED WHITE BLOOD CELL COUNT, UNSPECIFIED (6) Proctitis Current Visit: Yes Status: Acute Code(s): K62.89 - OTHER SPECIFIED DISEASES OF ANUS AND RECTUM (7) Anxiety and depression Current Visit: No Status: Chronic Code(s): F41.9 - ANXIETY DISORDER, UNSPECIFIED; F32.A - DEPRESSION, UNSPECIFIED (8) HLD (hyperlipidemia) Current Visit: No Status: Chronic Code(s): E78.5 - HYPERLIPIDEMIA, UNSPECIFIED (9) HTN (hypertension) Current Visit: No Status: Chronic Assessment & Plan: (1) CVA (cerebral vascular accident) Current Visit: Yes Status: Acute Assessment & Plan: - CT head negative - MRI brain: Impression: 1. New 3-4 mm focus acute micro-ischemia right occipital lobe. 2. Again atrophy and degenerative micro-ischemia within normal limits. - Neurology consult - Alert to person and time not place - Tele - Neuro checks Q4 - lipid panel - A1C - PT/ST/ OT eval - ASA 81 mg daily - Atorvastatin 80 mg daily - ECHO - EKG - NIH scale 3 - ABCD- 4 - Neurology started Plavix 75mg daily 07/04 - Continued confusion and not oriented to place Code(s): I63.9 - CEREBRAL INFARCTION, UNSPECIFIED (2) Hypokalemia Current Visit: Yes Status: Acute Assessment & Plan: - K+ 3.3- replaced- trend 07/04 - K+ 3.6- resolved Code(s): E87.6 - HYPOKALEMIA (3) Constipation Current Visit: Yes Status: Acute Assessment & Plan: - Miralax started - As seen on CT abd/ pelvis - BM x2 last night 07/04 - Resolved Code(s): K59.00 - CONSTIPATION, UNSPECIFIED (4) Confusion Current Visit: Yes Status: Acute Assessment & Plan: - Acute on chronic - Not alert to place - 2:2 CVA Code(s): R41.0 - DISORIENTATION, UNSPECIFIED (5) Leukocytosis Current Visit: Yes Status: Acute Assessment & Plan: - WBC 14.5 - 2:2 proctitis 07/04 - WBC 13.9 Code(s): D72.829 - ELEVATED WHITE BLOOD CELL COUNT, UNSPECIFIED (6) Proctitis Current Visit: Yes Status: Acute Assessment & Plan: - As seen on CT - TUCKs pads - Rocephin and Flagyl - CBC reviewed - Surgery consult- no intervention needed Code(s): K62.89 - OTHER SPECIFIED DISEASES OF ANUS AND RECTUM (7) Anxiety and depression Current Visit: No Status: Chronic Assessment & Plan: - continue home meds Code(s): F41.9 - ANXIETY DISORDER, UNSPECIFIED; F32.A - DEPRESSION, UNSPECIFIED (8) HLD (hyperlipidemia) Current Visit: No Status: Chronic Assessment & Plan: - Lipid panel reviewed- HDL 38 - Diet and exercise control recommended - Not on statin on admission - Started atorvastatin 80mg PO daily for CVA dx Code(s): E78.5 - HYPERLIPIDEMIA, UNSPECIFIED (9) HTN (hypertension) Current Visit: No Status: Chronic Qualifiers: Hypertension type: primary hypertension Qualified Code(s): I10 - Essential (primary) hypertension Assessment & Plan: - BP stable - continue home med - CMP reviewed Code(s): I10 - ESSENTIAL (PRIMARY) HYPERTENSION - Discharge Discharge Date: 07/04/24 (Rehab) Disposition: XFER OTHER Condition: Stable Prescriptions: New Aspirin EC 81 mg [Ecotrin 81 mg] 81 mg PO DAILY 30 Days #30 tablet Atorvastatin Calcium [Lipitor 40Mg] 80 mg PO HS 30 Days #30 tablet Clopidogrel Bisulfate [PLAVIX Tablet] 75 mg PO DAILY 30 Days #30 tablet Witch Tisha [Tucks] 1 pad TP Q4H PRN pad PRN Reason: RECTAL DISCOMFORT Metronidazole 500 mg [Flagyl 500 MG] 500 mg PO TID 10 Days #30 tablet Doxycycline Hyclate 100 mg [Vibramycin 100 MG] 100 mg PO BID 7 Days #14 tab Continue Amitriptyline HCl 200 mg PO QHS Cholecalciferol (Vitamin D3) [Vitamin D3] 1,000 unit PO DAILY hydroCHLOROthiazide [Hydrochlorothiazide] 12.5 mg PO DAILY Metoprolol Succinate 50 mg [Toprol Xl 50 MG] 50 mg PO BID Escitalopram Oxalate [Lexapro] 10 mg PO DAILY Tramadol HCl 50 mg [Ultram 50 mg] 50 mg PO DAILY PRN PRN Reason: Pain Nitroglycerin 0.4 mg Tablet [Nitrostat 0.4 MG Tablet] 0.4 mg SL Q5MIN PRN MR X 3 PRN PRN Reason: Chest Pain Additional Instructions: DETENTION ORDERS: ADMIT TO SKILLED [facility] MECHANICAL SOFT DIET PT/OT/ST EVAL AND TREAT SEE ATTACHED MED LIST Follow up with: YOUSUF ZHANG MD [Primary Care Provider] -
[2024-07-04 13:44] VITALS: BP 85/58; PULSE 82; RESP 17; TEMP 97.2; O2SAT 98
== END 2024-07-04 15:20 ==
LOC: ED 11:44 → MED SURG 20:37
PROVIDERS: ADMIT Internal Medicine; ATTEND Internal Medicine
DX: I63.9 Cerebral infarction, unspecified (principal); E87.6 Hypokalemia; K59.00 Constipation, unspecified; R41.0 Disorientation, unspecified; D72.829 Elevated white blood cell count, unspecified; K62.89 Other specified diseases of anus and rectum; F41.9 Anxiety disorder, unspecified; F32.A Depression, unspecified; E78.5 Hyperlipidemia, unspecified; I10 Essential (primary) hypertension; Z79.899 Other long term (current) drug therapy
CPT/HCPCS: 0241U; 36415; 70450; 70551; 71045; 74176; 80048; 80053; 80061; 80143; 80179; 80307; 81001; 82077; 82947; 83036; 83605; 83721; 83735; 84132; 84484; 85025; 85027; 87040; 87086; 92610; 93005; 93041; 93306; 94760; 96105; 97161; 97165; 97530; 99285; Q3014; 93268; J0696; J1650; J1956; A9270-GY; G0378